=== PATIENT | female | born 1990 | race Caucasian/White ===

== ENCOUNTER 2023-07-12 21:22 | Emergency (ER) | payer MEDICAID, SELFPAY ==
[2023-07-12 21:30] VITALS: BP 120/80; PULSE 70; RESP 16; TEMP 36.6; O2SAT 100; BMI 28.3
--- NOTE | 2023-07-12 21:33 | ED.LOWEXIN ---
HPI - Extremity Injury (Lower) General Time Seen by Provider: 21:37 Date Seen: 07/12/23 Chief Complaint: Extremity Pain/Injury, Lower Stated Complaint: left foot big toe injury Time Seen by Provider: 07/12/23 21:31 Source: patient and RN notes reviewed Mode of arrival: ambulatory Limitations: no limitations History of Present Illness HPI Narrative: 33-year-old female with left great toe injury tonight. She was folding a blanket and tripped on it, feels like she hyperextended her left great toe and has had pain since then. denies any other injuries. Related Data Home Medications Medication Instructions Recorded Confirmed bupropion HCl 150 mg tablet,12 hr 150 mg PO BID 01/24/23 01/24/23 sustained-release citalopram 10 mg tablet 40 mg PO DAILY 01/24/23 01/24/23 hydroxychloroquine 200 mg tablet 200 mg PO BID 01/24/23 01/24/23 Allergies Allergy/AdvReac Type Severity Reaction Status Date / Time No Known Drug Allergies Allergy Verified 01/24/23 16:46 [facility] Medical History (Updated 07/12/23 @ 22:19 by Carlos Sr MD) Left shoulder pain ?M25.512 - Pain in left shoulder (ICD-10) Surgical History (Updated 07/12/23 @ 21:52 by Guanakito Patrick RN) No significant past surgical history Social History Smoking Status: Never smoker Second hand tobacco smoke exposure: No How often do you have a drink containing alcohol: never How often do you have six or more drinks on one occasion: Never AUDIT-C Alcohol total score: 0 Non-prescribed substance use: denies use Exam Narrative: Exam Narrative: General: well nourished , NAD Head: Atraumatic and normocephalic ENT: External ears and external nose are normal Eyes: Conjunctiva clear, pupils are equal reactive, external ocular motions are intact Neck: Full spontaneous range of motion of the neck Lungs: No respiratory distress Musculoskeletal: Tenderness at the base of the distal phalanx of the left great toe with mild erythema in this area. Decreased motion with flexion extension which patient says is usual for her Neurologic: No gross focal neurologic deficits Skin: No rashes Psych: Mood and affect are appropriate Const: Vital Signs, click to edit/add: Vital Signs - 24 hr 07/12/23 21:30 Temperature 97.9 F Pulse Rate [Pulse Oximeter] 70 Respiratory Rate 16 [facility] 120[facility]80 Pulse Oximetry 100 Oxygen Delivery Me thod Room Air Course Course ED Course: patient seen examined, prior records reviewed. patient with history of rheumatoid arthritis and hallux rigidus presents with left great toe pain. Decreased motion at baseline. No swelling but marked tenderness on the dorsum of the toe. X-rays ordered. Patient has history of rheumatoid arthritis, does smoke cigarettes. Reevaluation(s) Time of Reevaluation #1: 22:17 Reevaluation #1: X-ray independently interpreted by me negative for acute fracture or dislocation. patient is stable for discharge Vital Signs Vital signs: Initial Vital Signs Temperature 97.9 F 07/12/23 21:30 Temperature Source Temporal Artery Scan 07/12/23 21:30 Pulse Rate 70 07/12/23 21:30 Pulse Rhythm Regular 07/12/23 21:30 Respiratory Rate 16 07/12/23 21:30 Blood Pressure 120/80 07/12/23 21:30 Blood Pressure Mean 93 07/12/23 21:30 Blood Pressure Position Sitting 07/12/23 21:30 Pulse Oximetry 100 07/12/23 21:30 Oxygen Delivery Method Room Air 07/12/23 21:30 Vital Signs Temperature 97.9 F 07/12/23 21:30 Pulse Rate 70 07/12/23 21:30 Respiratory Rate 16 07/12/23 21:30 Blood Pressure 120/80 07/12/23 21:30 Pulse Oximetry 100 07/12/23 21:30 Oxygen Delivery Method Room Air 07/12/23 21:30 Temperature 97.9 F 07/12/23 21:30 Pulse Rate 70 07/12/23 21:30 Respiratory Rate 16 07/12/23 21:30 Blood Pressure 120/80 07/12/23 21:30 Pulse Oximetry 100 07/12/23 21:30 Oxygen Delivery Method Room Air 07/12/23 21:30 Discharge Plan Discharge Clinical Impression: Strain of great toe of left foot Patient Disposition: Home, Self-Care Condition: Stable Instructions: Musculoskeletal Pain (ED) Activity Level: Weight Bearing as Tolerated Discharge Diet: Regular Prescriptions: No Action bupropion HCl 150 mg tablet sustained-release 12 hr 150 mg PO BID citalopram 10 mg tablet 40 mg PO DAILY hydroxychloroquine 200 mg tablet 200 mg PO BID Follow Up/Referrals: Provider,Not a Local [Primary Care Provider] - Stand Alone Forms: [employer] Secure Info Instructions
--- NOTE | 2023-07-12 21:40 | CRLHL7_ITS ---
For Patients: As a result of the Cures Act, medical imaging exams and procedure reports are released immediately into your electronic medical record. You may view this report before your referring provider. If you have questions, please contact your health care provider. INDICATION: Injury. TECHNIQUE: Left great toe 3 views. Permanently recorded images are archived. COMPARISON: None. FINDINGS: No acute fracture or aggressive osseous lesion. Alignment is normal. The joint spaces are preserved. The soft tissues are unremarkable. IMPRESSION: No evidence of an acute bony abnormality. Dictated by Ed Aragon MD @ 07/12/2023 11:03:26 PM (Electronically Signed)
[2023-07-12 22:23] VITALS: BP 118/82; PULSE 68; RESP 16; TEMP 36.8; O2SAT 100
== END 2023-07-12 22:24 | disposition home or self-care (01) ==
PROVIDERS: Emergency Provider Family Medicine
DX: S96.912A Strain of unspecified muscle and tendon at ankle and foot level, left foot, initial encounter (principal); W18.49XA Other slipping, tripping and stumbling without falling, initial encounter
CPT/HCPCS: 73660; 99283

== ENCOUNTER 2023-10-30 08:43 | Outpatient (CLI) | payer MEDICAID, SELFPAY ==
--- OUTSIDE RECORDS SUMMARY | 2023-10-30 08:45 | XMS_ITS | Data Portability ---
Author Name Unknown Address [address] [place] [address] Phone [phone] Organization [place] - [facility], [employer] Address [address] [place] [address] Assessment Encounter Date Assessment Date Assessment LastModified by Organization Details LastModified Time 05/22/2022 05/22/2022 Patient presents for post-op follow up of: right bunion sx 7 weeks. [email or web address] Not available 05/22/2022 16:04:51 04/04/2023 04/04/2023 We discussed xra y finding with the patient. Patient will monitor for increased pain, swelling, redness or crepitus at the surgical sites. We discussed surgical procedure with local anesthesia and see radiographically what is limiting the motion on her 1st MPJ. We will get an inhouse second opinion LENORE with Dr. Steiner regarding the surgical option. Advised her to bring her orthotics on the next visit to make modifications into it and see if it changes her symptoms. Not available 04/04/2023 10:45:29 04/05/2023 04/05/2023 Discussed with delicia lowe patient her diagnosis as detailed down below. I informed her that at this time she has 3 possible options moving forward. First would be to attempt orthotic modifications to see if there is any symptom reduction. I informed her that I do not think that this would be of realistic clinical benefit, however this could be attempted if she would like to avoid invasive procedures. Option 2 would be to pursue a local injection in the office followed by manual manipulation of the 1st MPJ to assess if any scar tissue could be broken up. Option 3 would be to open her incision under LMAC anesthesia and to release any scar tissue adhesions to increase ROM. The patient was informed that I do not think that bone work would need to be performed secondary to the rectus alignment of the residual foot and it would be to free any adhesions that may have developed. I will discuss this with her primary surgeon and he will contact her with further options. [email or web address] Not available 04/05/2023 13:31:28 04/11/2023 04/11/2023 We discussed the risks possible complications and postoperative course for upcoming surgery today. Patient is here for review of surgical consent and discussion of this. We discussed the above and answered questions. Patient has had increasing pain and difficulty with shoes and ambulation due to the problem. Will follow for outpt. surgery. We spent 30 minutes of consultation time today discussing treatment with the patient. [email or web address] Not available 04/11/2023 10:17:44 04/16/2023 04/16/2023 Pt. tolerated anesthesia and surgery well. Follow up after 1 week. Not available 04/16/2023 19:07:20 04/23/2023 04/23/2023 Discussed postop findings with the patient. Reviewed x-ray results with the patient. Patient was educated on proper incision care, showering/bathing, exercises , icing and activity level. Patient will keep the dressing on/clean/dry. We will refer her to physical therapist for evaluation and treatment to loosen up her scar tissue and facilitate motion on the area. Advised the patient to increase activity level swelling permitting. Patient will rtc in 1 wk for suture removal or sooner if problems. Not available 04/23/2023 15:05:26 05/02/2023 05/02/2023 Discussed findin gs with the patient. Patient was educated on proper incision care, showering/bathing, exercises and icing. Sutures were removed today. Incisions are healing well. She will be starting her physical therapy. with increasing aggressiveness in ROM in dorsiflexion and plantarflexion. Instructed the patient of safe transition from surgical shoe to soft soled shoe gear as tolerated. Patient will rtc in 2-3 wks for surgery check or sooner if any problems arise. Not available 05/02/2023 16:18:35 05/21/2023 05/21/2023 Patient was educated on advancing proper activity level. She has been doing physical therapy 2x a week. Patient will monitor for increased pain, swelling, redness or crepitus at the surgical sites. Follow in office for surgery check in 2-3 weeks. PRN is any pain or problems arise. Not available 05/21/2023 15:04:09 07/02/2023 07/02/2023 Patient was educated on advancing proper activity level. Patient will monitor for increased pain, swelling, redness or crepitus at the surgical sites. We discussed to her about Subiomed. Follow in office for surgery check in 1 year. Off note: we will bring the other first ray cut out size 10 and extra depth shoes 10 1/2 mens or 12 womens to use for trial in a few days. The patient can pick it up on and drop it off or . We will let her wear it in a week and see how it affects the symptoms. Not available 07/09/2023 02:52:58 07/04/2023 07/04/2023 We dispensed tri al ped pillows size 11, trial mens shoes size 10, and trial subiomed size 10 with a first ray cut out. She is to try these and get back to us in 1 week and see if these decreases her symptoms. Not available 07/09/2023 14:15:30 10/08/2023 10/08/2023 I did discussed findings with the patient as detailed down below. We discussed putting a graphite plate underneath the liner of the shoe to make it more stable. We also discussed scanning her for new orthotics. The patient will call for orthotic coverage and we proceed with scanning if eligible. Not available 10/08/2023 17:07:32 Plan of Treatment Reminders Order Date Submit Date Provider Last Modified By Organization Details Last Modified Time Details Appointments None record ed. Lab None record ed. Referral None record ed. Procedures None record ed. Surgeries None record ed. Imaging XR, foot, 3 or more view 023 07/02/20 [facility], [address] [place] [address] [address] , [place], [address], 3 23:21:09 XR, foot, 3 or more view 023 05/21/20 23 [facility], [address] [place] [address], [place], [address], 3 16:42:35 XR, foot, 3 or more view 023 04/23/20 23 [facility], [address] [place] [address], [place], [address], 3 09:34:11 XR, foot, 3 or more view 023 04/04/20 23 [facility], [address] [place] [address] [place], [address], 3 09:44:29 Medication Orders None record ed. Patient TargetsNo targets recorded. Patient InstructionsNo instructions recorded. Reason for Referral None Reported. Results Created Date Observation Date Name Description Value Unit Range Abnormal Flag LastModifiedBy Organization Detail LastModifiedTime 04/04/20 23 XR, foot, 3 or more view No observ ation record ed. [email or web address] [place] [facility] [address] [place] [address] [place], [phone], 04/04/2023 10:45:14 04/23/20 23 XR, foot, 3 or more view No observ ation record ed. [email or web address] [place] [facility] [address] [place] [address], [place], [address], 04/23/2023 15:06:11 05/21/20 23 XR, foot, 3 or more view No observ ation record ed. [email or web address] [place] [address] [place] [address] [place], [address], 05/22/2023 04:11:54 07/02/20 23 XR, foot, 3 or more view No observ ation record ed. [email or web address] [place] [facility] [address] [place] [address], [place], [address], 07/02/2023 14:43:08 Result Notes None recorded. Problems Name Status Onset Date Resolution Date Notes Provider Name and Address Organization Details Recorded Time Acquired hallux rigidus Active 06/21/20 16 Acquired hallux rigidus; Original Code: 68624505 Or iginal Codesystem: SNOMED CT Classifi cation: Medical Con firmation Status: Confirmed Not Available [facility] 09/18/[facility] 09:10:51 Problem Notes None recorded. Procedures Surgical History Date Name Laterality Status Provider Name and Address Organization Details Recorded Time 04/04/20 23 CallusDEBRIDEMENT completed RUEL Carrasco - [facility] 04/04/2023 10:45:58 Imaging Results Imaging Date Name Status LastModified by [email or web address] Details LastModified Time 04/04/2023 XR, foot, 3 or more view active [place] [facility] [address] [place] [address] , [place], [address], 04/04/2023 10:45:14 04/23/2023 XR, foot, 3 or more view active [place] [facility] [address] [place] [address] 60 [place], [address], 04/23/2023 15:06:11 05/21/2023 XR, foot, 3 or more view active [place] [facility] [address] [place] [address] 60 [place], [address], 05/22/2023 04:11:54 07/02/2023 XR, foot, 3 or more view active [place] [facility] [address] [place] [address] 60 [place], [address], 07/02/2023 14:43:08 Procedure Notes None recorded. Medical Equipment None Reported. Allergies No known drug allergies Medications Name Sig Start Date Stop Date Status Note LastModified by Organization Details LastModified Time bupropion HCl SR 150 mg tablet,12 hr sustained-re lease TAKE 1 TABLET BY MOUTH TWICE DAILY . APPOINTMENT REQUIRED FOR FUTURE REFILLS active Not Available Not Available No t Available oxybutynin chloride ER 10 mg tablet,exten ded release 24 hr active Not Available Not Available Not Available Retin-A 0.025 % topical cream APPLY TOPICALLY TO FACE EVERY NIGHT AT BEDTIME active Not Available Not Available N ot Available ibuprofen 800 mg tablet active Not Available Not Available Not Available fluconazole 150 mg tablet active Not Available Not Available Not Available citalopram 10 mg tablet TAKE 1 TABLET BY MOUTH EVERY DAY active Not Available Not Available No t Available hydrocodone 5 mg-acetamino phen 325 mg tablet active Not Available Not Available Not Available hydroquinone 4 % topical cream APPLY 1 APPLICATION TOPICALLY TWICE A DAY; APPLY TO FACE FOR 2 MONTHS active Not Available Not Available No t Available prednisone 20 mg tablet TAKE 2 TABLETS BY MOUTH DAILY FOR 5 DAYS active Not Available Not Available N ot Available clindamycin HCl 150 mg capsule TAKE 3 CAPSULES BY MOUTH 3 TIMES DAILY FOR 10 DAYS active Not Available Not Available Not Available oxycodone 5 mg/5 mL oral solution TAKE 5ML BY MOUTH EVERY 6 HOURS NEEDED FOR PAIN active Not Available Not Available No t Available tramadol 50 mg tablet TAKE 1 TABLET BY MOUTH EVERY 4-6 HOURS NEEDED FOR PAIN active Not Available Not Available No t Available citalopram 20 mg tablet TAKE 1 TABLET BY MOUTH DAILY ALONG WITH A 10 MG TABLET FOR A TOTAL DOSE OF 30 MG. active Not Available Not Available No t Available benzonatate 100 mg capsule active Not Available Not Available Not Available promethazine 25 mg tablet TAKE ONE TABLET EVERY 6 HOURS NEEDED FOR NAUSA active Not Available Not Available No t Available metronidazol e 0.75 % topical cream APPLY 1 APPLICATION TOPICALLY 2 TIMES DAILY NEEDED active Not Available Not Available No t Available hydroxychlor oquine 200 mg tablet TAKE 1 TABLET BY MOUTH TWICE DAILY active Not Available Not Available No t Available ondansetron 4 mg disintegrati ng tablet TAKE DISSOLVE ONE TABLET ON TONGUE EVERY 4 HOURS NEEDED FOR NAUSEA active Not Available Not Available No t Available cefdinir 300 mg capsule active Not Available Not Available N ot Available fluticasone propionate 50 mcg/actuatio n nasal spray,suspen sonal SHAKE LIQUID AND USE 2 SPRAYS IN EACH NOSTRIL DAILY active Not Available Not Available No t Available amoxicillin 875 mg-potassium clavulanate 125 mg tablet active Not Available Not Available Not Available oxycodone 5 mg tablet TAKE 1 TABLET BY MOUTH EVERY 4 HOURS NEEDED active Not Available Not Available No t Available Tri-Ina 0.01 %-4 %-0.05 % topical cream APPLY TOPICALLY TO THE AFFECTED AREA OF FACE AT BEDTIME active Not Available Not Available No t Available cyclobenzapr ine 5 mg tablet TAKE 1 TABLET BY MOUTH THREE TIMES DAILY active Not Available Not Available Not Available Flovent HFA 110 mcg/actuatio n aerosol inhaler INHALE 2 PUFFS BY MOUTH DAILY NEEDED FOR ASTHMA. RINSE MOUTH WITH WATER AFTER USE FOR AFTERTASTE AND INCIDENCE OF CANDIDIASIS . DO NOT SWALLOW active Not Available Not Available No t Available ProAir HFA 90 mcg/actuatio n aerosol inhaler INHALE 1 TO 2 PUFFS NEEDED FOR WHEEZING OR SHORTNESS OF BREATH active Not Available Not Available No t Available QuickVue At-Home COVID-19 Test kit TEST DIRECTED TODAY active Not Available Not Available No t Available Vitals Date Recorded Body mass index (BMI) Body weight Body height Provider Name and Address Organization Details Last Updated DateTime 05/22/2022 29 kg/m2 97314.07 g 165.1 cm RUEL Lee - [facility] 05/22/2022 14:16:38 Social History None recorded. Functional Status None recorded. Mental Status None recorded. Family History Nothing Reported. Medical History No medical history recorded. Gynecological HistoryNo gynecological history recorded. Obstetrics History GPAL:G 0 P 0 0 0 0 Past Encounters Encounter ID Performer Location Encounter Start Date Encounter Closed Date Diagnosis/Indication Diagnosis SNOMED-CT Code [id number] Fabien Vann [facility] [employer] Office [address] [place] [phone] 05/22/2022 15:11:57 05/22/2022 16:10:42 Postoperative visit [id number] Hallux josey anuel AND bunion [id number] Shreyas Magana [place] [facility] [address] [place] [address] 04/04/2023 10:01:39 04/08/2023 09:51:08 Postoperative care [id number] Low back pain 801939406 Foot callus [id number] Charles Price [facility] [employer] Office [address] [place] [phone] 04/05/2023 12:00:25 04/08/2023 09:52:29 Acquired hallux limitus of left great toe [id number] 09 Acquired h allux limitus of right great toe [id number] [facility] Office [address] [place] [phone] 04/11/2023 10:05:32 04/15/2023 09:22:53 Acquired hallux limitus of right great toe 76146963463930 00 Acquired h allux limitus of left great toe 98490655457781 09 [id number] [facility] [address] [place] [address] 04/16/2023 09:22:47 04/17/2023 11:10:05 Acquired hallux limitus of right great toe 77419990483871 00 Acquired h allux limitus of left great toe 60513579242324 09 [id number] [address] [facility] Office [address] [place] [id number] 04/23/2023 14:43:01 04/25/2023 10:08:48 Postoperative care [id number] Fabien Vann [facility] Office [address] [place] [id number] 05/02/2023 12:30:21 05/06/2023 13:18:36 Postoperative care [id number] [facility] Office [address] [place] [id number] 05/21/2023 14:49:22 05/22/2023 09:49:30 Postoperative care [id number] [facility] Office [address] [place] [id number] 07/02/2023 14:16:03 07/10/2023 23:21:09 Postoperative care [id number] Shreyas Magana [place] [facility] [address] [place] [phone] 07/04/2023 11:49:12 07/09/2023 13:21:56 Acquired hallux limitus of left great toe [id number] 09 [id number] Shreyas Magana [place] [facility] [address] [facility] [address] [place] [address] 10/08/2023 15:14:14 10/09/2023 12:09:45 Pain in left foot [id number] 7 Pain in right foot 24420 [id number] 7 Postoperative care [id number] Health Concerns Section Related Observation LastModified by Organization Detai ls LastModified Time None Recorded Concern Status LastModified by Organization Details LastModified Time None Recorded Advance Directives Directive None Recorded Payers Encounter Date Sequence Insurance Name Policy Number Policy May Covered Member ID May Member ID Guarantor Name 10/08/2023 1 [employer] - DOS ON OR AFTER 2021 [id number] 1 Keily E Maxa [id number] Keily E Maxa 07/04/2023 1 [employer] - DOS ON OR AFTER 2021 [id number] 1 Keily E Maxa [id number] Keily E Maxa 07/02/2023 1 [employer] - DOS ON OR AFTER 2021 [id number] 1 Keily E Maxa [id number] Keily E Maxa 05/21/2023 1 [employer] - DOS ON OR AFTER 2021 [id number] 1 Keily E Maxa [id number] Keily E Maxa 05/02/2023 1 [employer] - DOS ON OR AFTER 2021 [id number] 1 Keily E Maxa [id number] Keily E Maxa 04/23/2023 1 [employer] - DOS ON OR AFTER 2021 [id number] 1 Keily E Maxa [id number] Keily E Maxa 04/16/2023 1 [employer] - DOS ON OR AFTER 2021 [id number] 1 Keily E Maxa [id number] Keily E Maxa 04/11/2023 1 [employer] - DOS ON OR AFTER 2021 [id number] 1 Keily E Maxa [id number] Keily E Maxa 04/05/2023 1 [employer] - DOS ON OR AFTER 2021 [id number] 1 Keily E Maxa [id number] Keily E Maxa 04/04/2023 1 [employer] - DOS ON OR AFTER 2021 [id number] 1 Keily E Maxa [id number] Keily E Maxa 05/22/2022 1 [employer] - INDIVIDUAL AND FAMILY (HMO) [id number] 1 Keily E Maxa [id number] Keily E Maxa Notes Date Note Type Note Provider Name and Address Organization Details Recorded Time 05/22/2022 text/html HPI Notes: hallu x limitus right Fabien Vann DPM [address] [place], [address], [facility] - [facility] 05/22/2022 16:07:40 04/04/2023 text/html HPI Notes: Chris garay 1 year postop doing well. They are doing daily exercises, elevation and icing. Patient denies n/v/f/c/calf pain or SOB. She was experiencing shooting pain and jamming of the 1st MPJ that is happening randomly. She feel it when getting up with or without shoes. She was also having hip and low back pain. Shreyas ashford [place] - [facility] 04/29/2023 10:35:27 04/05/2023 text/html HPI Notes: Chris garay is a 33 year old female established patient who presents to clinic today for a 2nd opinion of right sided foot pain. The patient previously underwent a modified Isaac bunionectomy about 1 year ago to address her Hallux limitus and she mentions that she has noticed that her right foot has since locked up. The patient endorses that she has increasing symptoms that are consistent with what she was experiencing prior to the surgery. Charles Price DPM [address] [place], [address], [facility] - [facility] 04/05/2023 13:31:32 04/11/2023 text/html HPI Notes: Pt. i s scheduled for upcoming outpatient surgery on 04/16/2023: 1. Right - 1st MPJ manipulation with possible arthroplasty. Fabien Vann DPM [address] [place] [address], [phone], [facility] 04/12/2023 10:06:50 04/23/2023 text/html HPI Notes: Patie nt 1 wk postop and is doing well. Patient denies significant pain. Pain is controlled with PO meds. Patient has been resting, elevating and icing. Patient has ambulated minimally in the surgical shoe/ weight on heel. Patient denies n/v/f/c/calf pain or SOB. The procedure was done last 04/16/2023: 1. Right - 1st MPJ manipulation with arthroplasty 2. Right - cheilectomy on the 1st metatarsal Fabien Zuniga CARLOS Vann [address] [place] [address], [phone], [facility] 04/25/2023 09:33:42 05/02/2023 text/html HPI Notes: Patie nt 2 wk postop and is doing well. Patient denies significant pain. Pain is controlled with PO meds. Patient has been resting, elevating and icing. Patient has ambulated minimally in the surgical shoe/ weight on heel. Patient denies n/v/f/c/calf pain or SOB. The procedure was done last 04/16/2023: 1. Right - 1st MPJ manipulation with arthroplasty 2. Right - cheilectomy on the 1st metatarsal Fabien Zuniga CARLOS Vann [address] [place] [address], [phone], [facility] 05/03/2023 13:56:50 05/21/2023 text/html HPI Notes: Patie nt 5 wk postop and is doing well. Patient denies significant pain. Pain is controlled with PO meds. Patient has been resting, elevating and icing. Patient has ambulated minimally in the surgical shoe/ weight on heel. Patient denies n/v/f/c/calf pain or SOB. She is having pain on the lateral side of the left foot. The procedure was done last 04/16/2023: 1. Right - 1st MPJ manipulation with arthroplasty 2. Right - cheilectomy on the 1st metatarsal Fabien A. CARLOS Vann [address] [place], [address], [facility] 05/22/2023 09:27:40 07/02/2023 text/html HPI Notes: Patie nt 11 wks postop and is doing well. Patient denies significant pain. Pain is controlled with PO meds. Patient has been resting, elevating and icing. Patient has ambulated minimally in the surgical shoe/ weight on heel. Patient denies n/v/f/c/calf pain or SOB. She is having pain on the lateral side of the left foot. The procedure was done last 04/16/2023: 1. Right - 1st MPJ manipulation with arthroplasty 2. Right - cheilectomy on the 1st metatarsal The patient concerns of left foot with developing hallux limitus. Increasing sx in left foot right foot doing well. 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 RUEL Carrasco - [facility] 07/10/2023 09:08:44 10/08/2023 text/html HPI Notes: The patient is here for a follow up. The patient has mentioned that she was having pain on post-op area. She mentioned sitting on her foot and flipping her foot backwards which may have elicited the pain on her foot. She was previously dispensed with trial [employer] devices with a first ray cut out and she did felt like it was helping her upstream symptoms. She was also doing good with physical therapy resulting in ore loose scar tissue and good range of motion. RUEL Carrasco [facility] 10/08/2023 17:08:46 OBGyn Episode No OBEpisode recorded.
--- OUTSIDE RECORDS SUMMARY | 2023-10-30 08:46 | XMS_ITS | Encounter Summary ---
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 P [facility] Care Provider Reason for Referral * MRI/CAT/PET Scan (Routine) - Authorized Specialty Diagnoses / Procedures Referred By Contac t Referred To Contact Radiology Diagnoses Tonsillitis Recurrent Abscess Peritonsillar Procedures CT Neck Soft Tissue with IV Contrast Leena Cool P.A.-[facility] [address] [place] [address] [facility] Referral ID Status Reason Start Date Expiration Date V isits Requested Visits Authorized [id number] Authorized 10/21/2023 10/20/2024 1 1 Reason for Visit * Reason Comments Follow-up * Appointment Request (Routine) - Closed Specialty Diagnoses / Procedures Referred By Contac t Referred To Contact Otorhinolaryngology Referral ID Status Reason Start Date Expiration Date Visits Re quested Visits Authorized [id number] Closed 10/21/2023 10/20/2024 1 1 Encounter Details Date Type Department Care Team (Latest Contact Info) Description 10/21/2023 3:30 PM CDT Office Visit Department of Otorhinolaryngology in [place] [address] [place] [phone] Leena Cool P.A.-[facility] [address] [place] [phone] Tonsillitis Recurrent (Primary Dx); Abscess Peritonsillar Social History Tobacco Use Types Packs/Day Years Used Date Smoking Tobacco: Light Smoker Cigarettes 0.5 6 Smokeless Tobacco: Never Alcohol Use Standard Drinks/Week Comments No 0 (1 standard drink = 0.6 oz pur e alcohol) [facility] Utilities Answer Date Recorded In the past 12 months has e [email or web address], gas, oil, or water ftopia threatened to shut off services in your home? No 08/22/2023 Humiliation, Afraid, Rape, and Kick questionnair e Answer Date Recorded Within the last year, have y ou been afraid of your partner or ex-partner? No 11/06/2021 Within the last year, have y ou been humiliated or emotionally abused in other ways by your partner or ex-partner? No Within the last year, have y ou been kicked, hit, slapped, or otherwise physically hurt by your partner or ex-partner? No 11/06/2021 Within the last year, have y ou been raped or forced to have any kind of sexual activity by your partner or ex-partner? No 11/06/2021 Social Connection and Isolat ion Panel [NHANES] Answer Date Recorded In a typical week, how many times do you talk on the phone with family, friends, or neighbors? More than three times a week 11/06/2021 How often do you get togethe r with friends or relatives? Twice a week 11/06/2021 How often do you attend [facility] or mandaen services? Patient declined 11/06/2021 Do you belong to any clubs o r organizations such as shinto groups, unions, fraternal or athletic groups, or school groups? No 11/06/2021 How often do you attend meet ings of the clubs or organizations you belong to? 1 to 4 times per year 11/06/2021 Are you , , di vorced, , never , or living with a partner? Never 11/06/2021 AUDIT-C Answer Date Recorded Q1: How often do you have a drink containing alc ohol? Patient declined 11/06/2021 Average Number of Drinks Not on file 022 Frequency of Binge Drinking Not on file 10/14 Overall Financial Resource Strain (CARDIA) Answe r Date Recorded How hard is it for you to pa y for the very basics like food, housing, medical care, and heating? Somewhat hard 11/06/2021 PHQ-2 Answer Date Recorded PHQ-2 Score 1 08/14/2023 [facility] - Occupational Stress Questionnaire Answer Date Recorded Do you feel stress - tense, restless, nervous, or anxious, or unable to sleep at night because your mind is troubled all the time - these days? Only a little 11/06/2021 Exercise Vital Sign Answer Date Recorde d On average, how many days pe r week do you engage in moderate to strenuous exercise (like a brisk walk)? Patient declined On average, how many minutes do you engage in exercise at this level? 60 min 08/22/2023 Hunger Vital Sign Answer Date Recorded Within the past 12 months, y ou worried that your food would run out before you got the money to buy more. Patient declined Within the past 12 months, t he food you bought just didn't last and you didn't have money to get more. Sometimes true 02/2024 PRAPARE - Transportation Answer Date Re corded In the past 12 months, has l ack of transportation kept you from medical appointments or from getting medications? No 02/2024 In the past 12 months, has l ack of transportation kept you from meetings, work, or from getting things needed for daily living? No 08/22/2023 Depression Answer Date Recor ded PHQ-9 Total Score (max 27) 3 08/14 Nutrition Answer Date Recorded Nutrition: EVOO Fat Source No 08/22 On average, how many serving s of fruits and vegetables do you eat per day (serving size is equal to 1 cup or approximately the size of a tennis ball)? 3-5 08/22/2023 Dental Answer Date Recorded Dental: Regular Dentist Yes 11/07/19 Employment Answer Date Recorded Employment status Employed and actively working without restrictions 08/22/2023 Housing Stability Answer Date Recorded What is your living situation today? I have a [facility] [address] to live 08/22/2023 Education Answer Date Recorded What is the highest level of school you have completed or the highest degree you have received? Bachelor's degree (e.g., BA, AB, BS) 12/24/2018 Sex and Gender Information Value Date Recorded Sex Assigned at Female 02/12/2020 1:12 PM CDT Gender Identity Female 02/12/2020 1:12 PM CDT Sexual Orientation Straight 02/12/2020 1: 12 PM CDT documented as of this encounter Progress Notes * Leena Cool P.A.-C. - 10/21/2023 3:30 PM CDT SUBJECTIVE CHIEF COMPLAINT/REASON FOR VISIT Recurrent acute tonsillitis HISTORY OF PRESENT ILLNESS Keily Trivedi presents to the clinic today to have her tonsils evaluated. Past medical history significant for generalized anxiety disorder, rheumatoid arthritis, asthma, depression, cigarette use currently smoking a half pack a day, and peritonsillar abscess. I saw patient 01/08/2022 after she was diagnosed with a 9 x 6 x 10 mm left peritonsillar abscess along with bilateral tonsillitis. Attempt at drainage of this was unsuccessful and she was treated in hospital with IV antibiotics, fluids, steroids, and pain medications. Due to some persisting symptoms a repeat CT was obtained which showed multiple small abscesses and she was once again admitted. Symptoms significantly improved with the steroids and antibiotics, but since then she has had continued recurrence of bilateral sore throat left greater than right. Approximately 1 day a week her throatwill bother her, this is sometimes bilateral and sometimes just on the left. She also notices at least 5 to 6 times a year she will have exacerbation of sore throat, again left greater than right, this will take a couple weeks to completely resolve. This is sometimes on its own but sometimes associated with malaise, cough, congestion, or upper respiratory symptoms. Whenever she does get acutely ill she feels like it always subtle them with the throat and results in the throat pain. She never had this problem prior to November of 2021. She does currently have productive cough for 3 weeks, mild nasal congestion and left greater than right sore throat. The following portions of the patient's history were reviewed: allergies, current medications, problem list, family history, medical history, social history and surgical history OBJECTIVE PHYSICAL EXAMINATION Patient is alert, pleasant, in no acute distress. External nasal exam normal. Oral cavity without lesions. Tonsils are 2+, exophytic, no erythema or exudate. I do not appreciate any asymmetry of the soft palate or peritonsillar areas. Base of tongue normal. Nasopharynx is clear. Indirect laryngoscopy reveals no abnormalities. Neck is without adenopathy or asymmetry. ASSESSMENT / PLAN 1. Recurrent acute tonsillitis 2. Possible chronic left tonsillitis 3. Cough and sore throat x3 weeks We discussed involved anatomy and findings. Reviewed different treatment options. She is amenable to getting an updated neck CT to see if there is chronic low-grade abscesses that may be waxing and waning in the left versus just the recurrent tonsillitis. I have ordered this first available and will call her with these results. She is slightly hesitant to proceed with tonsillectomy but yet is definitely interested in doing so in order to stop her frequent sore throats. We discussed this procedure in detail, including goals, risks, and potential complications. She is given written information on tonsillectomy. She is aware that this is a low risk procedure, done under general anesthesia, andthat this will require a preoperative consultation with primary care provider to assess anesthetic and surgical risk. We discussed the possibility of persisting symptoms. We discussed the potential for significant postoperative pain, morbidity, bleeding, nausea, dehydration, and rehospitalization. 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 I would like to obtain the CT prior to surgery to see if there are any underlying abscesses, and patient is aware of this. Orders are filled out accordingly. Leena Cool P.A.-C. documented in this encounter Miscellaneous Notes * Addendum Note - Leena Cool P.A.-C. - 10/21/2023 3:30 PM CDTAddended by: LEENA COOL on: 10/22/2023 12:56 PM Modules accepted: Orders documented in this encounter Plan of Treatment Upcoming Encounters Date Type Department Care Team (Late st Contact Info) Description 10/30/2023 3:30 PM CDT Appointment Department of Radiology in [place], [place] [address] [place] [phone] Leena Cool P.A.-C. [address] [place] [phone] 10/31/2023 4:00 PM CDT Office Visit Department of Family Medicine, [facility], in [place] [address] [place] [address] Rose Mary Perkins APRN, C.N.P., D.N.P. 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 [address] [phone] PCP - General 01/07/23 documented as of this encounter
--- OUTSIDE RECORDS SUMMARY | 2023-10-30 08:46 | XMS_ITS | Clinical Summary ---
Author Name Unknown Organization [facility] Address [address] [place] [address] Care Team Providers Care Last Repairer Name Role Phone Rose Mary Perkins APRN, C.N.P., D.N.P. P [facility] Care Provider Source Comments Patient records contain information from all sites at [facility]. For routine questions regarding patient records, call [phone] during business hours, M-F 8:00 AM - 5:00 PM Central Time. Record requests for emergency care only can be directed to [phone] at any time.[facility] Allergies Active Allergy Reactions Criticality Noted Date Comments Chlorhexidine Rash 02/12/2020 Medications Medication Sig Dispensed Refills Start Date End Date Status hydroxychloroquin e (PLAQUENIL) 200 mg tablet Take 200 mg by mouth 2 (two) times a day. 05/24/2018 Active multivitamin capsule Take 1 capsule by mouth daily. Active ibuprofen (ADVIL,MOTRIN) 600 mg tablet Take 1 tablet by mouth every 6 (six) hours. 02/01/2020 Active albuterol 90 mcg/actuation inhalerIndication s:Asthma Mild Intermittent (HCC) Inhale 1-2 puffs as needed for wheezing or shortness of breath. 18 g 11 11/06/2021 Active fluocinolone-hydr oquinone-tretinoi n (TRI-DEANNA) 0.01-4-0.05 % cream Apply 1 Application topically at bedtime. Apply to affected areas on face. 30 g 1 01/07/2023 Active citalopram (CeleXA) 20 mg tabletIndications :Depression Major Recurrent (HCC) TAKE 1 TABLET BY MOUTH DAILY ALONG WITH A 10MG FOR A TOTAL DOSE OF 30MG 90 tablet 3 08/14/2023 Active tretinoin (RETIN-A) 0.025 % creamIndications: Sun Damaged Skin Apply 1 Application topically at bedtime. Apply to face nightly. 45 g 2 08/15/2023 Active hydroquinone 4 % cream Apply 1 Application topically 2 (two) times a day. Apply to face for 2 months. 28.35 g 1 08/15/2023 Active metroNIDAZOLE (METROCREAM) 0.75 % cream Apply 1 Application topically 2 (two) times a day as needed (rash face). 45 g 3 08/14/2023 Active buPROPion (WELLBUTRIN SR) 150 mg 12 hr tabletIndications :Anxiety Generalized Disorder,Depresse d Libido TAKE 1 TABLET(150 MG) BY MOUTH TWICE DAILY 180 tablet 3 08/14/2023 Active L.acidoph-L.radhag- B.bif-S.therm (BACID) 1 billion cell- 250 mg per tablet Take 1 tablet by mouth 2 (two) times a day with meals. 180 tablet 3 08/28/2023 Active oxyBUTYnin (DITROPAN-XL) 10 mg 24 hr tablet Take 1 tablet (10 mg total) by mouth daily. 30 tablet 3 10/04/2023 Active citalopram (CeleXA) 10 mg tablet take 1 tablet by mouth every day 90 tablet 3 10/22/2023 Active amoxicillin (AMOXIL) 500 mg capsule Take 2 capsules (1,000 mg total) by mouth every 12 (twelve) hours for 10 days. 40 capsule 10/22/2023 11/01/19 24 Active citalopram (CeleXA) 10 mg tablet take 1 tablet by mouth every day 90 tablet 08/07/2023 10/22/19 24 Discontinued Active Problems Patient Care Coordination No te Formatting of this note migh t be different from the original. OB Problem List 1 Depression/Anxiety - on Celexa 30 mg 2 Rheumatoid Arthritis - takes Plaquenil 3 Overweight BMI 29 4 GBS positive Patient does not want sister in room. Plan is to tell her and family that she can only have 1 person in room (she will pick her mother). Her sister stresses her out. She feels bad and so we are going to help her facilitate this. Having a girl! Caitlyn patient LMP: 03/29/18 TAMIKO by LMP calculator: 01/03/19 - LMP consistent with 7wk [facility] Hospital for Delivery: [facility] 's provider: Jane OB education completed. Pre-reg completed at [facility]. FOB involved- NO- MOM AND SISTER FOR LABOR SUPPORT [facility] nursing referral faxed on 05/29. OB labs Blood type: O pos 05/20/2018 Antibody screen: Neg 05/20/2018 HBsAg: Neg 05/20/2018 HIV: Neg 05/20/2018 Syphilis: NR 05/20/2018 Rubella: Immune 05/20/2018 Varicella: Immune 05/20/2018 TSH: 2.0 05/20/2018 Hgb: 12.8 05/20/2018, 12.2 10/15/2018 Hct: 39.5 05/20/2018, 36.1 10/15/2018 Platelets: 335 05/20/2018, 243 10/15/2018 Pap smear: 05/2016 NIL Glucose screen: 113 10/15/2018 GBS culture: 12/10/2018 positive Problem Noted Date Diagnosed Date Incontinence Urinary Stress And Urge 10/28/2023 Frequency Urinary 10/28/2023 Nicotine Dependence Cigarettes 01/05/2020 Sleep Disorder 05/13/2019 Anxiety Generalized Disorder 12/02/2018 Arthritis Rheumatoid 05/20/2018 Asthma Mild Intermittent 06/06/2015 Depression Major Recurrent 10/13/2014 Resolved Problems Problem Noted Date Diagnosed Date Resolved Date Positive Group B Streptococcus 12/12/2018 02/24/2019 Affective Seasonal Disorder 11/15/2015 05/13/2019 Overview: Disorder Affective Seasonal Depression Major 10/19/2015 05/13/2019 Asthma NOS 09/15/2012 05/13/2019 Overview: Asthma, Unspecified Encounters Date Type Department Care Team Description 10/22/2023 Clinical Communication Department of Otorhinolaryngology in [place], [place] [address] [place] [address] Jayden Rowell M.D. SURGERY DATE - ENT 10/21/2023 3:30 PM CDT Office Visit Department of Otorhinolaryngology in [place], [place] [address] [place] [address] Leena Cruz P.A.-C. Tonsillitis Recurrent (Primary Dx); Abscess Peritonsillar 10/18/2023 Refill Department of [facility], [facility], in [address] [place] [address] Rose Mary Perkins APRN, C.N.PGenet, D.N.P. Med Refill 10/18/2023 Refill Department of [facility], [facility], in [address] [place] [address] Rose Mary Perkins APRN, C.N.PGenet, D.N.P. Med Refill 10/04/2023 11:30 AM CDT Comprehensive Visit Department of Urology in [place], [place] [address] [place] [phone] Yael Centeno APRN, C.N.P. Incontinence Urinary Stress And Urge (Primary Dx); Frequency Urinary; Dysfunction Pelvic Floor Female 08/22/2023 12:38 PM LINUX PROGRAMMER - 08/22/2023 11:59 PM LINUX PROGRAMMER Hospital Encounter Department of Laboratory Medicine in [address] [phone] Rose Mary Perkins APRN, C.N.P., D.N.P. Frequency Urinary Discharge Disposition: Home or Self Care 08/22/2023 12:37 PM LINUX PROGRAMMER Hospital Encounter Department of Laboratory Medicine in [address] [address] Rose Mary Perkins APRN, C.N.P., D.N.P. Frequency Urinary Discharge Disposition: Home or Self Care 08/22/2023 12:37 PM LINUX PROGRAMMER Hospital Encounter Department of Laboratory Medicine in [address] [address] Rose Mary Perkins APRN, C.N.P., D.N.P. Frequency Urinary Discharge Disposition: Home or Self Care 08/22/2023 12:00 PM LINUX PROGRAMMER Comprehensive Visit Department of Family [facility], [facility], [address] [place] [address] Rose Mary Perkins APRN, C.N.P., D.N.P. Frequency Urinary (Primary Dx); Diarrhea 08/14/2023 Refill Department of [facility], [facility], [address] [address] Edel Grewal M.D. Med Refill 08/14/2023 Refill Department of [facility], [facility], [address] [phone] John Tong M.D. Med Refill 08/14/2023 Refill Department of Family Medicine, [facility], [place], [place] [address], [place] [address] Malou Medeiros APRN, C.N.P. Med Refill 08/14/2023 Refill Department of [facility], [address] [place] [address] Edel Grewal M.D. Med Refill 08/14/2023 Refill Department of [facility], [address] [address] Edel Grewal M.D. Med Refill 08/07/2023 Refill Department of Family [facility], in [place], [place] [address], [place] [address] Edel Grewal M.D. Med Refill from Last 3 Months Immunizations Name Administration Dates Next Due 4vHPV (discontinued) 03/27/2012,06/27/20 11,03/27/2011,2009 9vHPV 03/27/2012,06/27/2011,03/27/2011 DTP 03/09/1998, 3,05/12/1993,1992,1992 HepA Adult 05/30/2016,10/13/2014 HepB (discontinued) adolesce nt/high risk 05/30/2016,11/24/2014,10/25/2014 HepB Adult 05/30/2016,11/24/2014,10/25/2014 HepB Pediatric/Adolescent 07/05/1993,1992, 1992 Hib (HbOC) (discontinued) 07/05/1993,1992, 1992 Influenza (IM) Preservative Free 05/13/2019 Influenza TIV (IM) 03/27/2012,03/27/2011, 010 Influenza, Injectable, Mdck, Preservative Free, Quadrivalent 05/13/2019 Influenza, Injectable, Quadrivalent 06/06/2015 Influenza, Seasonal, Injectable 05/05/20 12,03/27/2012,03/27/2011,2009 Influenza, Unspecified 05/13/2019,2017,07/12/2017,2015,06/06/2015,04/21/2014,04/30/2013,1 ,03/27/2012,03/27/2011 MCV4 (Menactra)(Discontinued) 08/09/2010 MMR 07/10/2005,07/05/1993 MPSV4 08/09/2010 OPV 07/05/1993, 3,1992,1991 PCV20 12/08/2021 SARS-COV-2 (COVID-19) - MODERNA(Discontinued) 08/22/2023(Deferred: Patient decision) Td Preservative Free (TENIVA C, DECAVAC) 07/10/2005 Tdap 10/15/2018,10/13/2014,07/10/2005 influenza vaccine quad (FLUZONE/FLUARIX) (6 months and older)(PF) 04/30/2022,05/20/2021,07/05/2020,2018,04/30/2018,07/12/2017,05/17/2016 Family History Medical History Relation Name Comments ADD Brother Lucius trivedi Asthma Brother Lucius trivedi Learning disorder Brother Lucius trivedi Alcohol abuse Father Maurisio trivedi Anxiety disorder Father Maurisio trivedi Depression Father Maurisio trivedi Skin cancer Grandfather Arthritis Maternal Grandmother Katiana martines Osteoporosis Maternal Grandmother Katiana martines Ovarian cancer Maternal Grandmother Katiana martines 7 0s Asthma Mother Diana trivedi Ovarian cancer Other maternal great aunt 60s Lung cancer Paternal Grandfather Rio ashrobinson Stroke Paternal Grandmother Sheree ashrobinson Relation Name Status Comments Brother Lucius trivedi Father Maurisio trivedi Grandfather Maternal Grandmother Katiana martines Mother Diana trivedi Other maternal great aunt Paternal Grandfather Rio barkley Paternal Grandmother Sheree ashmanueltank Social History Tobacco Use Types Packs/Day Years Used Date Smoking Tobacco: Light Smoker Cigarettes 0.5 6 Smokeless Tobacco: Never Tobacco Cessation:Ready to Q uit: Not Asked; Counseling Given: Not Answered Alcohol Use Standard Drinks/Week Comments No 0 (1 standard drink = 0.6 oz pur e alcohol) [facility] [employer] Answer Date Recorded In the past 12 months has e [employer], gas, oil, or water [employer] threatened to shut off services in your [...] week 11/06/2021 How often do you attend chur ch or taoist services? Patient declined 11/06/2021 Do you belong to any clubs o r organizations such as jainism groups, unions, fraternal or athletic groups, or [...] Answer Date Recorded PHQ-2 Score 1 08/14/2023 [facility] Occupat ional Health - Occupational Stress [...] your living situation today? I have a [facility] place to live 08/22/2023 Education Answer Date Recorded What is the highest level of school you have completed or the highest degree you have received? Bachelor's degree (e.g., BA, AB, BS) 12/24/2018 Sex and Gender Information Value Date Recorded Sex Assigned at Female 02/12/2020 1:12 PM CDT Gender Identity Female 02/12/2020 1:12 PM CDT Sexual Orientation Straight 02/12/2020 1: 12 PM CDT Last Filed Vital Signs Vital Sign Reading Time Taken Comments Blood Pressure 103/67 08/22/2023 12:06 PM LINUX PROGRAMMER Pulse 84 08/22/2023 12:06 PM LINUX PROGRAMMER Temperature 35.7 ??C (96.2 ??F) 08/22/2023 1 2:06 PM LINUX PROGRAMMER Respiratory Rate 24 08/22/2023 12:0 6 PM LINUX PROGRAMMER Oxygen Saturation 98% 04/12/2023 3:45 PM CDT Inhaled Oxygen Concentration - - Weight 82.5 kg (181 lb 14.1 oz) 024 12:06 PM LINUX PROGRAMMER Height 167.5 cm (5' 5.95) 08/22/2023 1 2:06 PM LINUX PROGRAMMER Body Mass Index 29.41 08/22/2023 12:06 PM LINUX PROGRAMMER Plan of Treatment Upcoming Encounters Date Type Department Care Team (Late st Contact Info) Description 10/30/2023 3:30 PM CDT Appointment Department of Radiology in [place], [place] [address] [place] [phone] Leena Cruz P.A.-C. [address] [place] [phone] 10/31/2023 4:00 PM CDT Office Visit Department of Family Medicine, [facility], in [place], [place] [address] [place] [address] Rose Mary Perkins APRN, C.N.P., D.N.PGenet [address] [place] [address] Health Maintenance Due Date Last Done Comments COVID-19 Vaccine (#1) 1997 Zoster Vaccines (1 of 2) 2011 Tobacco Cessation counseling 06/02/2022 06/02/2021 Asthma Action Plan 11/06/2022 11/06/2021, 05/30/2016 Influenza Vaccine (#1) 2023 , 05/20/2021, 07/05/2020, Additional history exists Depression Monitoring (PHQ-9) 12/13/2023 08/14/2023, 10/15/2017 Cervical Cancer Screening 06/02/20242020, 06/02/2021, 02/24/2019, Additional history exists Asthma Control Test Questionnaire 08/22/2024 08/22/2023, 08/22/2023, 05/30/2016 DTaP,Tdap,and Td Vaccines (8 - Td or Tdap) 10/15/2028 10/15/2018, 10/13/2014, 07/10/2005, Additional history exists HPV Vaccines Completed 03/27/2012, 03/15, 06/27/2011, Additional history exists Hepatitis C Screening Completed 11/03/2015 Hepatitis A Vaccines Completed 05/30/2016, 10/14/19 15 Hepatitis B Vaccines Completed 05/30/2016, 05/30/2016, 11/24/2014, Additional history exists HIV Screening Completed 05/20/2018, 11/03/2015 Pneumococcal vaccine (0-64 years) Completed 022 Medical Devices Implanted Type Area Insulation Batting Machine Operator Device Identifier Shelf Expiration Date Model / Serial / Lot Hardware E.G. Pins/Screws/Ro ds Hardware e.g. pins/screws/ rods Right: Foot Procedures Procedure Name Priority Date/Time Associated Diagnosis Comments GIARDIA ANTIGEN, F Routine 08/23/2023 10 :40 AM LINUX PROGRAMMER Frequency Urinary CALPROTECTIN, F Routine 08/23/2023 9:50 AM LINUX PROGRAMMER Frequency Urinary TISSUE TRANSGLUTAMINASE (TTG) AB, IGA, S Routine 08/22/2023 12:52 PM LINUX PROGRAMMER FERRITIN, S Routine 08/22/2023 12:52 PM LINUX PROGRAMMER Frequency Urinary CELIAC DISEASE SEROLOGY CASCADE, S Routine 08/22/2023 12:52 PM LINUX PROGRAMMER Frequency Urinary HEPATIC FUNCTION PANEL, S Routine 08/22/2023 12:52 PM LINUX PROGRAMMER Frequency Urinary URINALYSIS WITH MICROSCOPIC IF INDICATED, U Routine 08/22/2023 12:47 PM LINUX PROGRAMMER Frequency Urinary BACTERIAL CULTURE, AEROBIC + SUSC, URINE Routine 08/22/2023 12:47 PM LINUX PROGRAMMER Frequency Urinary HPV WITH GENOTYPING, PCR, THINPREP Routine 06/02/2021 10:06 AM LINUX PROGRAMMER HIV-1 P24 AG, HIV-1/2 AB ,P Routine 05/20/2018 12:40 PM LINUX PROGRAMMER Examination Test With Positive Result HCV AB SCRN W/REFLEX TO HCV PCR, S Routine 11/03/2015 3:08 PM CDT from Last 3 Months or Most Recently Relevant to Health Maintenance Results * Giardia Antigen, Feces (08/23/2023 10:40 AM LINUX PROGRAMMER) Giardia Ag, F Negative Negative 08/26/2023 7:15 PM LINUX PROGRAMMER DT Comment: ----ADDITIONAL INFORMATION---- Test Performed by Enzyme Immunoassay. Stool (Stool) 08/23/2023 10: 40 AM LINUX PROGRAMMER 08/24/2023 8:47 AM LINUX PROGRAMMER Ashlee Garcia APRN.N.P., D .N.P. LAB MICROBIOLOGY - GENERAL ORDERABLES [facility] [address] [place] [address], [facility] DT [address] [place] [address] * Calprotectin, Feces (08/23/2023 9:50 AM LINUX PROGRAMMER) Calprotectin, F <50.0 <50.0 (Normal) mcg/g 08/26/2023 6:06 PM LINUX PROGRAMMER [facility] Stool (Stool) 08/23/2023 9:5 0 AM LINUX PROGRAMMER 08/26/2023 7:34 AM LINUX PROGRAMMER Rose Mary Perkins APRN, Ashlee.N.PGenet, D .N.P. LAB BODY FLUIDS AND STOOLS ORDERABLES Performing Organization Address City/[facility]/ZIP Co de Phone Number [facility] [address] [place] [address] [facility] [address] [place] [address] * Hepatic Function Panel (08/22/2023 12:52 PM LINUX PROGRAMMER) Bilirubin, Total, P <0.2 0.0 - 1.2 mg/dL 08/22/2023 6:24 PM LINUX PROGRAMMER OWAT Bilirubin, Direct, P <0.2 0.0 - 0.3 mg/dL 08/22/2023 6:24 PM LINUX PROGRAMMER OWAT Aspartate Aminotransferase (AST), P 18 8 - 43 U/L 08/22/2023 6:24 PM LINUX PROGRAMMER OWAT Alanine Aminotransferase (ALT), P 15 7 - 45 U/L 08/22/2023 6:24 PM LINUX PROGRAMMER OWAT Alkaline Phosphatase, P 57 35 - 104 U/L 08/22/2023 6:24 PM LINUX PROGRAMMER OWAT Albumin, P 4.7 3.5 - 5.0 g/dL 08/22/2023 6:24 PM LINUX PROGRAMMER OWAT Protein, Total, P 7.2 6.3 - 7.9 g/dL 08/22/2023 6:24 PM LINUX PROGRAMMER OWAT Blood (Blood, Venous) 08/22/2023 12:52 PM LINUX PROGRAMMER 08/22/2023 5:51 PM LINUX PROGRAMMER Rose Mary Perkins APRN, C.N.P., D .N.P. LAB BLOOD ADD-ON [facility] [address] [place] [address], [facility] OWAT [facility] in [place] [address] [place] [address] * Celiac Disease Serology Mazon (08/22/2023 12:52 PM LINUX PROGRAMMER) Immunoglobulin A (IgA), S 209 61 - 356 mg/dL 08/23/2023 8:00 AM LINUX PROGRAMMER [facility] Celiac Disease Interpretation See Comment: Negative serology. Celiac disease unlikely. However, approximately 10% of patients with celiac disease are seronegative. Also, patients who are already adhering to a gluten-free diet may be seronegative. If celiac disease is highly clinically suspected, consider HLA-DQ typing. 08/23/2023 10:27 PM LINUX PROGRAMMER [facility] Blood (Blood, Venous) 08/22/2023 12:52 PM LINUX PROGRAMMER 08/23/2023 7:15 AM LINUX PROGRAMMER Narrative [facility] - 08/23/2023 10:27 PM LINUX PROGRAMMER Specimen Information: Specimen ID: [id number] Specimen Type: Blood Specimen Collection Start Date: 08/22/2023 12:52 PM Specimen Received Date: 08/23/2023 ??7:15 AM Specimen ID: [id number] Specimen Type: Blood Specimen Collection Start Date: 08/22/2023 12:52 PM Specimen Received Date: 08/23/2023 ??6:09 AM Rose Mary Perkins APRN, C.N.P., Nahomy .N.P. LAB BLOOD ADD-ON Performing Organization Address [facility] Co de Phone Number [facility] [address] [place] [address] [facility] [address] [place], [place] [phone] [place] [address] [address] [place] [place] [address] * tTG (Tissue Transglutaminase), Antibody, IgA (08/22/2023 12:52 PM LINUX PROGRAMMER) [facility] Tissue Transglutaminase Ab, IgA, S 2.0 <4.0 (Negative ) U/mL 08/23/2023 11:37 AM LINUX PROGRAMMER [facility] Blood 08/22/2023 12:5 2 PM LINUX PROGRAMMER 08/23/2023 8:08 AM LINUX PROGRAMMER Rose Mary Perkins APRN, C.N.P., D .N.P. LAB BLOOD ADD-ON Performing Organization Address [facility] de Phone Number [facility] [address] [place] [address] [facility] [address] [place] [address] * Ferritin (08/22/2023 12:52 PM LINUX PROGRAMMER) [facility] Ferritin, S 42 6 - 175 mcg/L 08/22/2023 6:22 PM LINUX PROGRAMMER OWAT Comment: Biotin has been identified by the pile trimmer as a potential interfering substance. Higher concentrations of biotin may be found in multivitamins, hair/nail supplements, and workout supplements. If the result does not match clinical observations, repeat testing after patient refrains from the use of supplements for at least 12 hours. Blood (Blood, Venous) 08/22/2023 12:52 PM LINUX PROGRAMMER 08/22/2023 5:51 PM LINUX PROGRAMMER Keegan Garcia APRNNMisty., D .N.P. LAB BLOOD ADD-ON [facility] [address] [place] [address], [place] OWAT [facility] in [place] [address] [place] [address] * Urinalysis with Microscopic if Indicated (08/22/2023 12:47 PM LINUX PROGRAMMER) Source Urine, Urine, Midstream 08/22/2023 1:30 PM LINUX PROGRAMMER FB60 Clarity Clear Clear 08/22/2023 1:45 PM LINUX PROGRAMMER FB60 Color Yellow 08/22/2023 1:45 PM LINUX PROGRAMMER FB60 Comment: ----REFERENCE VALUE---- Colorless Yellow Aniyah Blood Negative Negative 08/22/2023 1:45 PM LINUX PROGRAMMER FB60 Nitrite Negative Negative 08/22/2023 1:45 PM LINUX PROGRAMMER FB60 Leukocyte Esterase Negative Negative 08/22/2023 1:45 PM LINUX PROGRAMMER FB60 Protein Negative mg/dL 08/22/2023 1:45 PM LINUX PROGRAMMER FB60 Comment: ----REFERENCE VALUE---- Negative Trace Glucose Negative Negative mg/dL 08/22/2023 1:45 PM LINUX PROGRAMMER FB60 Ketones, QI(U) Negative Negative mg/dL 08/22/2023 1:45 PM LINUX PROGRAMMER FB60 Bilirubin Negative Negative 08/22/2023 1:45 PM LINUX PROGRAMMER FB60 pH 5.5 5.0 - 8.0 08/22/2023 1:45 PM LINUX PROGRAMMER FB60 Specific Weare >=1.030 1.001 - 1.035 08/22/2023 1:45 PM LINUX PROGRAMMER FB60 Urobilinogen 0.2 0.2 - 1.0 mg/dL 08/22/2023 1:45 PM LINUX PROGRAMMER FB60 Urine (Urine, Midstream) 08/22/2023 12:47 PM LINUX PROGRAMMER 08/22/2023 1:29 PM LINUX PROGRAMMER Ashlee Garcia APRN.N.P., D .N.P. LAB URINE ORDERABLES [facility] [address] [place] [address], [facility] FB60 [facility] in [place] [address] [place] [address] * Bacterial Culture, Aerobic + Susceptibility, Urine (08/22/2023 12:47 PM LINUX PROGRAMMER) Urine Culture No growth after 1 day of incubation. 08/23/2023 12:31 PM LINUX PROGRAMMER TO Urine (Urine, Midstream) 08/22/2023 12:47 PM LINUX PROGRAMMER 08/22/2023 7:13 PM LINUX PROGRAMMER Comment:Specimen Source Site : Urine Rose Mary Perkins APRN, C.N.P., D .N.P. LAB MICROBIOLOGY - GENERAL ORDERABLES Performing Organization Address City/[facility]/ZIP Co de Phone Number [facility] [address] [place] [address] * HPV with Genotyping, PCR, ThinPrep (06/02/2021 10:06 AM LINUX PROGRAMMER) HPV with Genotyping, ThinPrep, PCR Negative Negative 06/05/2021 6:05 PM LINUX PROGRAMMER TO Comment: Negative for high risk HPV by nucleic acid amplification. ??The following high risk HPV types were not detected: 16, 18, 31, 33, 35, 39, 45, 51, 52, 56, 58, 59, 66, and 68 Varies 06/02/2021 10:0 6 AM LINUX PROGRAMMER 06/05/2021 6:51 AM LINUX PROGRAMMER Cyrus Parker M.D. LAB MICROBIOLOGY - G ENERAL ORDERABLES Performing Organization Address City/[facility]/ZIP Co de Phone Number [facility] [address] [place] [address] * HIV-1 p24 Ag, HIV-1/2 Ab ,P (05/20/2018 12:40 PM LINUX PROGRAMMER) HIV Ag/Ab Scrn, P Negative Negative 05/21/2018 1:55 PM LINUX PROGRAMMER [facility] Comment: Negative result does not rule out HIV infection. If exposure to HIV infection occurred <14 days ago, contact the laboratory to request addition of HIV-1 RNA detection / quantification test. HIV-1 p24 Ag Scrn, P Negative Negative 05/21/2018 1:55 PM LINUX PROGRAMMER [facility] Comment: Negative result does not rule out HIV infection. If exposure to HIV infection occurred <14 days ago, contact the laboratory to request addition of HIV-1 RNA detection / quantification test. HIV-1 Ab Scrn, P Negative Negative 05/21/2018 1:55 PM LINUX PROGRAMMER [facility] Comment: Negative result does not rule out HIV infection. If exposure to HIV infection occurred <14 days ago, contact the laboratory to request addition of HIV-1 RNA detection / quantification test. HIV-2 Ab Scrn, P Negative Negative 05/21/2018 1:55 PM LINUX PROGRAMMER [facility] Comment: Negative result does not rule out HIV infection. If exposure to HIV infection occurred <14 days ago, contact the laboratory to request addition of HIV-1 RNA detection / quantification test. Blood (Blood, Venous) 05/20/2018 12:40 PM LINUX PROGRAMMER 05/21/2018 11:59 AM LINUX PROGRAMMER Nicol Brady M.D. LAB MICROBIOLOGY - BLOOD ORDERABLES [facility] [address] [place] [address] * HCV Ab w/Reflex to HCV PCR, S (medicare) (11/03/2015 3:08 PM CDT) HXHCV Ab [facility] Negative Negative POWERCHART Comment: Fizbkz-uo-pnlfxi ratio is <1.00. Test Performed by: [address] [address] End Stapler: Santo Hopkins II, M.D., Ph.D. Blood 11/03/2015 3:08 PM CDT Kimo Foster M.D. LAB MICROBIOLOGY - BLOOD ORDERABLES POWERCHART from Last 3 Months or Most Recently Relevant to Health Maintenance Care Teams Last Repairer Relationship Specialty Start Date End Date Delroy-Rose Mary Guidry APRN, C.N.P., D.N.P. [address], [place] [phone] PCP - General 01/07/23
--- OUTSIDE RECORDS SUMMARY | 2023-10-30 08:46 | XMS_ITS | Continuity of Care Document ---
Author Name Unknown Address [address] [place] [address] Phone [phone] Organization [facility] Office Address [address] [place] [address] [address] [place] [address] Assessment Encounter Date Assessment Date Assessment LastModified by Organization Details LastModified Time 10/08/2023 10/08/2023 I did discussed findings with [...] record ed. Surgeries None record ed. Imaging None record ed. Medication Orders None record ed. Patient TargetsNo targets recorded. Patient InstructionsNo instructions recorded. Reason for Referral None Reported. Problems Name Status Onset Date Resolution Date Notes Provider Name and Address Organization Details Recorded Time Acquired hallux rigidus Active 06/21/20 16 Acquired hallux rigidus; Original Code: [id number] Or iginal Codesystem: SNOMED CT Classifi cation: Medical Con firmation Status: Confirmed Not Available [employer] 09/18/2022 09:10:51 Problem Notes None recorded. Procedures Surgical History Date Name Laterality Status Provider Name and Address Organization Details Recorded Time 04/04/20 23 CallusDEBRIDEMENT completed Shreyas ashford, [facility] 04/04/2023 10:45:58 Imaging Results None recorded. Procedure Notes None recorded. Medical Equipment None [...] Available Not Available No t Available Vitals None Recorded Social History None recorded. Functional Status None recorded. Mental Status None recorded. Family History Nothing Reported. Medical History No medical history recorded. Gynecological HistoryNo gynecological history recorded. Obstetrics History GPAL:G 0 P 0 0 0 0 Past Encounters Encounter ID Performer Location Encounter Start Date Encounter Closed Date Diagnosis/Indication Diagnosis SNOMED-CT Code [id number] Shreyas Magana [place] [facility] [address] [place] [phone] 10/08/2023 15:14:14 10/09/2023 12:09:45 Pain in left foot [id number] Pain in right foot [id number] Postoperative care [id number] Health Concerns Section Related Observation LastModified by Organization Detai ls LastModified Time None Recorded Concern Status LastModified by Organization Details LastModified Time None Recorded Payers Encounter Date Sequence Insurance Name Policy Number Policy May Covered Member ID May Member ID Guarantor Name 10/08/2023 1 [facility] - DOS ON OR AFTER 2021 [id number] Keily Trivedi [id number] Keily Trivedi Notes Date Note Type Note Provider Name and Address Organization Details Recorded Time 10/08/2023 text/html HPI Notes: The patient is [...] and good range of motion. RUEL Carrasco - [facility] 10/08/2023 17:08:46 OBGyn Episode No OBEpisode recorded.
--- OUTSIDE RECORDS SUMMARY | 2023-10-30 08:46 | XMS_ITS ---
Author Name Unknown Organization [facility] Address [address] [place] [address] Care Team Providers Care Top Collar Baster Name Role Phone Unavailable Unavailable Unavailable Surgery Details Not on file Complications Check Surgery Details section. Procedure Estimated Blood Loss Check Surgery Details section. Procedure Findings Check Surgery Details section. Procedure Specimens Taken Check Surgery Details section.
--- OUTSIDE RECORDS SUMMARY | 2023-10-30 08:46 | XMS_ITS | Referral Summary ---
Author Name Unknown Organization [facility] Address [address] [place] [address] Care Team Providers Care Chain Puller Name Role Phone Rose Mary Perkins APRN, C.N.P., D.N.P. [facility] Care Provider Source Comments Patient records contain information from all sites at [facility]. For routine questions regarding patient records, call [phone] during business hours, M-F 8:00 AM - 5:00 PM Central Time. Record requests for emergency care only can be directed to [phone] at any time.[facility] Encounters Date Type Department Care Team Description 10/22/2023 Clinical Communication Department of Otorhinolaryngology in [place], [place] [address] [phone] Jayden Rowell M.D. SURGERY DATE - ENT 10/21/2023 3:30 PM CDT Office Visit Department of Otorhinolaryngology in [address] [phone] Leena Cruz P.A.-C. Tonsillitis Recurrent (Primary Dx); Abscess Peritonsillar 10/18/2023 Refill Department of Family Medicine, [facility], in [address] [phone] Rose Mary Perkins APRN, C.N.P., D.N.P. Med Refill 10/18/2023 Refill Department of Family Medicine, [facility], in [address] [phone] Rose Mary Perkins APRN C.N.PGenet, D.N.P. Med Refill 10/04/2023 11:30 AM CDT Comprehensive Visit Department of Urology in [place], [place] [address] [place] [address] Yael Centeno APRN, C.N.P. 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 Frequency Urinary Discharge Disposition: Home or Self Care 08/22/2023 12:37 PM CREDENTIALING COORDINATOR Hospital Encounter Department of Laboratory Medicine in [address] [phone] Rose Mary Perkins APRN C.N.P., D.N.P. Frequency Urinary Discharge Disposition: Home or Self Care 08/22/2023 12:37 PM CREDENTIALING COORDINATOR Hospital Encounter Department of Laboratory Medicine in [address] [phone] Rose Mary Perkins APRN C.N.P., D.N.P. Frequency Urinary Discharge Disposition: Home or Self Care 08/22/2023 12:00 PM CREDENTIALING COORDINATOR Comprehensive Visit Department of Family [facility], [facility], in [address] [phone] Rose Mary Perkins APRN C.N.PGenet, D.N.P. Frequency Urinary (Primary Dx); Diarrhea 08/14/2023 Refill Department of Family Medicine, [facility], in [address] [phone] Edel Grewal M.D. Med Refill 08/14/2023 Refill Department of [facility], [facility], [address] [phone] John Tong M.D. Med Refill 08/14/2023 Refill Department of Family [facility], [facility], [address] [phone] Malou Medeiros APRN, C.N.P. Med Refill 08/14/2023 Refill Department of [facility], [address] [phone] Edel Grewal M.D. Med Refill 08/14/2023 Refill Department of [facility], [address] [phone] Edel Grewal M.D. Med Refill 08/07/2023 Refill Department of [facility], [place], [place] [address] [place] [phone] Edel Grewal M.D. Med Refill from Last 3 Months Allergies Active Allergy Reactions Criticality Noted Date [...] consistent with 7wk [facility] [place]'s provider: Jane OB education completed. Pre-reg completed at [facility]. FOB involved- NO- MOM AND SISTER FOR [...] Asthma NOS 09/15/2012 05/13/2019 Overview: Asthma, Unspecified Immunizations Name Administration Dates Next Due 4vHPV [...] quad (FLUZONE/FLUARIX) (6 months and older)(PF) 04/30/2022,05/20/2021,07/05/2020,2018,04/30/2018,07/12/2017,05/17/2016 Social History Tobacco Use Types Packs/Day Years Used Date Smoking Tobacco: Light Smoker Cigarettes 0.5 6 Smokeless Tobacco: Never Tobacco Cessation:Ready to Q uit: Not Asked; Counseling Given: Not Answered Alcohol Use Standard Drinks/Week Comments No 0 (1 standard drink = 0.6 oz pur e alcohol) [facility] Utilities Answer Date Recorded In the past 12 months has e [employer], [employer], oil, or water [employer] threatened to shut off services in your [...] 11/06/2021 How often do you attend chur or spiritism services? Patient declined 11/06/2021 Do you belong to any clubs o r organizations such as gnosticist groups, unions, fraternal or athletic groups, or [...] Answer Date Recorded PHQ-2 Score 1 08/14/2023 [facility] - [...] your living situation today? I have a manuel place to live 08/22/2023 Education Answer Date [...] Comments Blood Pressure 103/67 08/22/2023 12:06 PM CREDENTIALING COORDINATOR Pulse 84 08/22/2023 12:06 PM CREDENTIALING COORDINATOR Temperature 35.7 ??C (96.2 ??F) 08/22/2023 1 2:06 PM CREDENTIALING COORDINATOR Respiratory Rate 24 08/22/2023 12:0 6 PM CREDENTIALING COORDINATOR Oxygen Saturation 98% 04/12/2023 3:45 PM CDT Inhaled Oxygen Concentration - - Weight 82.5 kg (181 lb 14.1 oz) 024 12:06 PM CREDENTIALING COORDINATOR Height 167.5 cm (5' 5.95) 08/22/2023 1 2:06 PM CREDENTIALING COORDINATOR Body Mass Index 29.41 08/22/2023 12:06 PM CREDENTIALING COORDINATOR Plan of Treatment Upcoming Encounters Date Type Department Care Team (Late st Contact Info) Description 10/30/2023 3:30 PM CDT Appointment Department of Radiology in [place], [place] [address], [place] [phone] Leena Cruz P.A.-C. [address] [place] [phone] 10/31/2023 4:00 PM CDT Office Visit Department of Family Medicine, [facility], in [place], [place] [address] [place] [phone] Rose Mary Perkins APRN, C.N.P., D.N.P. [address] [place] [phone] Medical Devices Implanted Type Area Solar Mechanical Engineer Device Identifier Shelf Expiration Date Model / Serial / Lot Hardware E.G. Pins/Screws/Ro ds Hardware e.g. pins/screws/ rods Right: Foot Procedures Procedure Name Priority Date/Time Associated Diagnosis Comments GIARDIA ANTIGEN, F Routine 08/23/2023 10 :40 AM CREDENTIALING COORDINATOR Frequency Urinary CALPROTECTIN, F Routine 08/23/2023 9:50 AM CREDENTIALING COORDINATOR Frequency Urinary TISSUE TRANSGLUTAMINASE (TTG) AB, IGA, S Routine 08/22/2023 12:52 PM CREDENTIALING COORDINATOR FERRITIN, S Routine 08/22/2023 12:52 PM CREDENTIALING COORDINATOR Frequency Urinary CELIAC DISEASE SEROLOGY CASCADE, S Routine 08/22/2023 12:52 PM CREDENTIALING COORDINATOR Frequency Urinary HEPATIC FUNCTION PANEL, S Routine 08/22/2023 12:52 PM CREDENTIALING COORDINATOR Frequency Urinary URINALYSIS WITH MICROSCOPIC IF INDICATED, U Routine 08/22/2023 12:47 PM CREDENTIALING COORDINATOR Frequency Urinary BACTERIAL CULTURE, AEROBIC + SUSC, URINE Routine 08/22/2023 12:47 PM CREDENTIALING COORDINATOR Frequency Urinary HPV WITH GENOTYPING, PCR, THINPREP Routine 06/02/2021 10:06 AM CREDENTIALING COORDINATOR HIV-1 P24 AG, HIV-1/2 AB ,P Routine 05/20/2018 12:40 PM CREDENTIALING COORDINATOR Examination Test With Positive Result HCV AB SCRN W/REFLEX TO HCV PCR, S Routine 11/03/2015 3:08 PM CDT from Last 3 Months or Most Recently Relevant to Health Maintenance Results * Giardia Antigen, Feces (08/23/2023 10:40 AM CREDENTIALING COORDINATOR) Giardia Ag, F Negative Negative 08/26/2023 7:15 PM CREDENTIALING COORDINATOR DTL Comment: ----ADDITIONAL INFORMATION---- Test Performed by Enzyme Immunoassay. Stool (Stool) 08/23/2023 10: 40 AM CREDENTIALING COORDINATOR 08/24/2023 8:47 AM CREDENTIALING COORDINATOR Keegan Garcia APRNN.Claudia, D .N.P. LAB MICROBIOLOGY - GENERAL ORDERABLES Performing Organization Address City/[facility]/ZIP Co de Phone Number [facility] [address] [place] [address], [facility] DTL [address] [facility] [address] [place] [address] * Calprotectin, Feces (08/23/2023 9:50 AM CREDENTIALING COORDINATOR) Calprotectin, F <50.0 <50.0 (Normal) mcg/g 08/26/2023 6:[address] [facility] Stool (Stool) 08/23/2023 9:5 0 AM CREDENTIALING COORDINATOR 08/26/2023 7:34 AM CREDENTIALING COORDINATOR Ashlee Garcia APRN.N.Claudia, D .N.P. LAB BODY FLUIDS AND STOOLS ORDERABLES [facility] [address] [place] [address] [facility] [address] [place] [address] * Hepatic Function Panel (08/22/2023 12:52 PM CREDENTIALING COORDINATOR) Bilirubin, Total, P <0.2 0.0 - 1.2 mg/dL 08/22/2023 6:24 PM CREDENTIALING COORDINATOR OWAT Bilirubin, Direct, P <0.2 0.0 - 0.3 mg/dL 08/22/2023 6:24 PM CREDENTIALING COORDINATOR OWAT Aspartate Aminotransferase (AST), P 18 8 - 43 U/L 08/22/2023 6:24 PM CREDENTIALING COORDINATOR OWAT Alanine Aminotransferase (ALT), P 15 7 - 45 U/L 08/22/2023 6:24 PM CREDENTIALING COORDINATOR OWAT Alkaline Phosphatase, P 57 35 - 104 U/L 08/22/2023 6:24 PM CREDENTIALING COORDINATOR OWAT Albumin, P 4.7 3.5 - 5.0 g/dL 08/22/2023 6:24 PM CREDENTIALING COORDINATOR OWAT Protein, Total, P 7.2 6.3 - 7.9 g/dL 08/22/2023 6:24 PM CREDENTIALING COORDINATOR OWAT Blood (Blood, Venous) 08/22/2023 12:52 PM CREDENTIALING COORDINATOR 08/22/2023 5:51 PM CREDENTIALING COORDINATOR Rose Mary Perkins APRN, C.N.P., D .N.P. LAB BLOOD ADD-ON [facility] [address] [place] [address], [facility] OWAT [facility] [place] [address] [place] [address] * Celiac Disease Serology Kiefer (08/22/2023 12:52 PM CREDENTIALING COORDINATOR) Pathologist [facility] Immunoglobulin A (IgA), S 209 61 - 356 mg/dL 08/23/2023 8:00 AM [facility] Celiac Disease Interpretation See Comment: Negative serology. Celiac disease unlikely. However, approximately 10% of patients with celiac disease are seronegative. Also, patients who are already adhering to a gluten-free diet may be seronegative. If celiac disease is highly clinically suspected, consider HLA-DQ typing. 08/23/2023 10:27 PM [facility] Blood (Blood, Venous) 08/22/2023 12:52 PM CREDENTIALING COORDINATOR 08/23/2023 7:15 AM CREDENTIALING COORDINATOR Narrative [facility] - 08/23/2023 10:27 PM CREDENTIALING COORDINATOR Specimen Information: Specimen ID: [id number] Specimen Type: Blood Specimen Collection Start Date: 08/22/2023 12:52 PM Specimen Received Date: 08/23/2023 ??7:15 AM Specimen ID: [id number] Specimen Type: Blood Specimen Collection Start Date: 08/22/2023 12:52 PM Specimen Received Date: 08/23/2023 ??6:09 AM Keegan Garcia APRNNJoss, Nahomy .N.P. LAB BLOOD ADD-ON Performing Organization Address City/[facility]/ZIP Co de Phone Number [facility] [address] [place] [address] [facility] [address] [place], [place] [phone] [place] [address] [address] [facility] [place] [address] * tTG (Tissue Transglutaminase), Antibody, IgA (08/22/2023 12:52 PM CREDENTIALING COORDINATOR) Tissue Transglutaminase Ab, IgA, S 2.0 <4.0 (Negative ) U/mL 08/23/2023 11:[address] [facility] Blood 08/22/2023 12:5 2 PM CREDENTIALING COORDINATOR 08/23/2023 8:08 AM CREDENTIALING COORDINATOR Keegan Garcia APRNNJoss, D .N.P. LAB BLOOD ADD-ON Performing Organization Address City/[facility] Co de Phone Number [facility] [address] [place] [address] [facility] [address] [place] [address] * Ferritin (08/22/2023 12:52 PM CREDENTIALING COORDINATOR) Ferritin, S 42 6 - 175 mcg/L 08/22/2023 6:22 PM CREDENTIALING COORDINATOR OWAT Comment: Biotin has been identified by the bank clerk as a potential interfering substance. Higher concentrations of biotin may be found in multivitamins, hair/nail supplements, and workout supplements. If the result does not match clinical observations, repeat testing after patient refrains from the use of supplements for at least 12 hours. Blood (Blood, Venous) 08/22/2023 12:52 PM CREDENTIALING COORDINATOR 08/22/2023 5:51 PM CREDENTIALING COORDINATOR Ashlee Garcia APRN.N.P., D .N.P. LAB BLOOD ADD-ON [facility] [address] [place] [address], [place] [address] [facility] [place] [address] [place] [address] * Urinalysis with Microscopic if Indicated (08/22/2023 12:47 PM CREDENTIALING COORDINATOR) Source Urine, Urine, Midstream 08/22/2023 1:30 PM CREDENTIALING COORDINATOR FB60 Clarity Clear Clear 08/22/2023 1:45 PM CREDENTIALING COORDINATOR FB60 Color Yellow 08/22/2023 1:45 PM CREDENTIALING COORDINATOR FB60 Comment: ----REFERENCE VALUE---- Colorless Yellow Aniyah Blood Negative Negative 08/22/2023 1:45 PM CREDENTIALING COORDINATOR FB60 Nitrite Negative Negative 08/22/2023 1:45 PM CREDENTIALING COORDINATOR FB60 Leukocyte Esterase Negative Negative 08/22/2023 1:45 PM CREDENTIALING COORDINATOR FB60 Protein Negative mg/dL 08/22/2023 1:45 PM CREDENTIALING COORDINATOR FB60 Comment: ----REFERENCE VALUE---- Negative Trace Glucose Negative Negative mg/dL 08/22/2023 1:45 PM CREDENTIALING COORDINATOR FB60 Ketones, QI(U) Negative Negative mg/dL 08/22/2023 1:45 PM CREDENTIALING COORDINATOR FB60 Bilirubin Negative Negative 08/22/2023 1:45 PM CREDENTIALING COORDINATOR FB60 pH 5.5 5.0 - 8.0 08/22/2023 1:45 PM CREDENTIALING COORDINATOR FB60 Specific Spring >=1.030 1.001 - 1.035 08/22/2023 1:45 PM CREDENTIALING COORDINATOR FB60 Urobilinogen 0.2 0.2 - 1.0 mg/dL 08/22/2023 1:45 PM CREDENTIALING COORDINATOR FB60 Urine (Urine, Midstream) 08/22/2023 12:47 PM CREDENTIALING COORDINATOR 08/22/2023 1:29 PM CREDENTIALING COORDINATOR Keegan Garcia APRNN.P., D .N.P. LAB URINE ORDERABLES [facility] [address] [place] [address], [facility] FB60 [facility] in [place] [address] [place] [address] * Bacterial Culture, Aerobic + Susceptibility, Urine (08/22/2023 12:47 PM CREDENTIALING COORDINATOR) Pathologist [facility] Urine Culture No growth after 1 day of incubation. 08/23/2023 12:31 PM CREDENTIALING COORDINATOR [facility] Urine (Urine, Midstream) 08/22/2023 12:47 PM CREDENTIALING COORDINATOR 08/22/2023 7:13 PM CREDENTIALING COORDINATOR Comment:Specimen Source Site : Urine Rose Mary Perkins APRN, C.N.P., D .N.P. LAB MICROBIOLOGY - GENERAL ORDERABLES Performing Organization Address City/[facility] Co de Phone Number [facility] [address] [place] [address] * HPV with Genotyping, PCR, ThinPrep (06/02/2021 10:06 AM CREDENTIALING COORDINATOR) Pathologist [facility] HPV with Genotyping, ThinPrep, PCR Negative Negative 06/05/2021 6:05 PM CREDENTIALING COORDINATOR TO Comment: Negative for high risk HPV by nucleic acid amplification. ??The following high risk HPV types were not detected: 16, 18, 31, 33, 35, 39, 45, 51, 52, 56, 58, 59, 66, and 68 Varies 06/02/2021 10:0 6 AM CREDENTIALING COORDINATOR 06/05/2021 6:51 AM CREDENTIALING COORDINATOR Cyrus Parker M.D. LAB MICROBIOLOGY - G ENERAL ORDERABLES Performing Organization Address City/[facility]/ZIP Co de Phone Number [facility] [address] [place] [address] * HIV-1 p24 Ag, HIV-1/2 Ab ,P (05/20/2018 12:40 PM CREDENTIALING COORDINATOR) HIV Ag/Ab Scrn, P Negative Negative 05/21/2018 1:55 PM CREDENTIALING COORDINATOR [facility] Comment: Negative result does not rule out HIV infection. If exposure to HIV infection occurred <14 days ago, contact the laboratory to request addition of HIV-1 RNA detection / quantification test. HIV-1 p24 Ag Scrn, P Negative Negative 05/21/2018 1:55 PM CREDENTIALING COORDINATOR [facility] Comment: Negative result does not rule out HIV infection. If exposure to HIV infection occurred <14 days ago, contact the laboratory to request addition of HIV-1 RNA detection / quantification test. HIV-1 Ab Scrn, P Negative Negative 05/21/2018 1:55 PM CREDENTIALING COORDINATOR [facility] Comment: Negative result does not rule out HIV infection. If exposure to HIV infection occurred <14 days ago, contact the laboratory to request addition of HIV-1 RNA detection / quantification test. HIV-2 Ab Scrn, P Negative Negative 05/21/2018 1:55 PM CREDENTIALING COORDINATOR [facility] Comment: Negative result does not rule out HIV infection. If exposure to HIV infection occurred <14 days ago, contact the laboratory to request addition of HIV-1 RNA detection / quantification test. Blood (Blood, Venous) 05/20/2018 12:40 PM CREDENTIALING COORDINATOR 05/21/2018 11:59 AM CREDENTIALING COORDINATOR Nicol Brady M.D. LAB MICROBIOLOGY - BLOOD ORDERABLES [facility] [address] [place] [address] * HCV Ab w/Reflex to HCV PCR, S (medicare) (11/03/2015 3:08 PM CDT) HXHCV Ab [facility] Negative Negative POWERCHART Comment: Aqnfsq-xa-stbbkt ratio is <1.00. Test Performed by: [address] [address] Tool Die Maker: Santo Hopkins II, M.D., Ph.D. Blood 11/03/2015 3:08 PM CDT Kimo Foster M.D. LAB MICROBIOLOGY - BLOOD ORDERABLES POWERCHART from Last 3 Months or Most Recently Relevant to Health Maintenance Care Teams Chain Puller Relationship Specialty Start Date End Date Delroy-Rose Mary Guidry APRN, C.N.P., D.N.P. [address], [place] [phone] PCP - General 01/07/23
--- OUTSIDE RECORDS SUMMARY | 2023-10-30 08:46 | XMS_ITS | Encounter Summary ---
Author Name Unknown Organization [facility] Address [address] [place] [address] Care Team Providers Care Flap Maker Name Role Phone Rose Mary Perkins APRN, C.N.P., D.N.P. P [facility] Care Provider Encounter Details Date Type Department Care Team (Late st Contact Info) Description 08/22/2023 12:38 PM HEAD START ASSISTANT TEACHER - 08/22/2023 11:59 PM [facility] Hospital Encounter Department of Laboratory Medicine in [address] [phone] Rose Mary Perkins APRN, C.N.P., D.N.P. [address] [phone] Frequency Urinary Discharge Disposition: Home or Self Care Social History Tobacco Use Types Packs/Day Years Used Date Smoking Tobacco: Light Smoker Cigarettes 0.5 6 Smokeless Tobacco: Never Alcohol Use Standard Drinks/Week Comments No 0 (1 standard drink = 0.6 oz pur e alcohol) [facility] Utilities Answer Date Recorded In the past 12 months has [employer], gas, oil, or water [employer] threatened to shut off services in your [...] How often do you attend chur or latter-day services? Patient declined 11/06/2021 Do you belong to any clubs o r organizations such as synagogue groups, unions, fraternal or athletic groups, or [...] Answer Date Recorded PHQ-2 Score 1 08/14/2023 [facility] Occupat ional [facility] - Occupational Stress [...] your living situation today? [facility] a [facility] 08/22/2023 Education Answer [...] PM CDT documented as of this encounter Medications at Time of Discharge Medication Sig Dispensed Refills Start Date End Date albuterol 90 mcg/actuation inhalerIndications:Ast hma Mild Intermittent (HCC) Inhale 1-2 puffs as needed for wheezing or shortness of breath. 18 g 11 11/06/2021 buPROPion (WELLBUTRIN SR) 150 mg 12 hr tabletIndications:Anxi ety Generalized Disorder,Depressed Libido TAKE 1 TABLET(150 MG) BY MOUTH TWICE DAILY 180 tablet 3 08/14/2023 citalopram (CeleXA) 20 mg tabletIndications:Depr ession Major Recurrent (HCC) TAKE 1 TABLET BY MOUTH DAILY ALONG WITH A 10MG FOR A TOTAL DOSE OF 30MG 90 tablet 3 08/14/2023 fluocinolone-hydroquin one-tretinoin (TRI-DEANNA) 0.01-4-0.05 % cream Apply 1 Application topically at bedtime. Apply to affected areas on face. 30 g 1 01/07/2023 hydroquinone 4 % cream Apply 1 Application topically 2 (two) times a day. Apply to face for 2 months. 28.35 g 1 08/15/2023 hydroxychloroquine (PLAQUENIL) 200 mg tablet Take 200 mg by mouth 2 (two) times a day. 05/24/2018 ibuprofen (ADVIL,MOTRIN) 600 mg tablet Take 1 tablet by mouth every 6 (six) hours. 02/01/2020 LGenetacidoph-Lcurly-B.bif -S.therm (BACID) 1 billion cell- 250 mg per tablet Take 1 tablet by mouth 2 (two) times a day with meals. 180 tablet 3 08/28/2023 metroNIDAZOLE (METROCREAM) 0.75 % cream Apply 1 Application topically 2 (two) times a day as needed (rash face). 45 g 3 08/14/2023 multivitamin capsule Take 1 capsule by mouth daily. tretinoin (RETIN-A) 0.025 % creamIndications:Sun Damaged Skin Apply 1 Application topically at bedtime. Apply to face nightly. 45 g 2 08/15/2023 citalopram (CeleXA) 10 mg tablet take 1 tablet by mouth every day 90 tablet 08/07/2023 10/22/2023 documented as of this encounter Plan of Treatment Upcoming Encounters Date Type Department Care Team (Late st Contact Info) Description 10/30/2023 3:30 PM CDT Appointment Department of Radiology in [place], [place] [address] [place] [address] Leena Cruz P.A.-C. [address] [place] [address] 10/31/2023 4:00 PM CDT Office Visit Department of Family Medicine, [facility], in [place], [place] [address] [address] Rose Mary Perkins APRN, C.N.P., D.N.P. [address] [phone] documented as of this encounter Procedures Procedure Name Priority Date/Time Associated Diagnosis Comments URINALYSIS WITH MICROSCOPIC IF INDICATED, U Routine 08/22/2023 12:47 PM HEAD START ASSISTANT TEACHER Frequency Urinary BACTERIAL CULTURE, AEROBIC + SUSC, URINE Routine 08/22/2023 12:47 PM HEAD START ASSISTANT TEACHER Frequency Urinary documented in this encounter Results * Bacterial Culture, Aerobic + Susceptibility, Urine (08/22/2023 12:47 PM HEAD START ASSISTANT TEACHER) Urine Culture No growth after 1 day of incubation. 08/23/2023 12:31 PM HEAD START ASSISTANT TEACHER [facility] Urine (Urine, Midstream) 08/22/2023 12:47 PM HEAD START ASSISTANT TEACHER 08/22/2023 7:13 PM HEAD START ASSISTANT TEACHER Comment:Specimen Source Site : Urine Ashlee Garcia APRN.N.P., D .N.P. LAB MICROBIOLOGY - GENERAL ORDERABLES [facility] [address] [place] [address], [facility] MKTO [facility] [place] [address] [place] [phone] * Urinalysis with Microscopic if Indicated (08/22/2023 12:47 PM HEAD START ASSISTANT TEACHER) Source Urine, Urine, Midstream 08/22/2023 1:30 PM HEAD START ASSISTANT TEACHER FB60 Clarity Clear Clear 08/22/2023 1:45 PM HEAD START ASSISTANT TEACHER FB60 Color Yellow 08/22/2023 1:45 PM HEAD START ASSISTANT TEACHER FB60 Comment: ----REFERENCE VALUE---- Colorless Yellow Aniyah Blood Negative Negative 08/22/2023 1:45 PM HEAD START ASSISTANT TEACHER FB60 Nitrite Negative Negative 08/22/2023 1:45 PM HEAD START ASSISTANT TEACHER FB60 Leukocyte Esterase Negative Negative 08/22/2023 1:45 PM HEAD START ASSISTANT TEACHER FB60 Protein Negative mg/dL 08/22/2023 1:45 PM HEAD START ASSISTANT TEACHER FB60 Comment: ----REFERENCE VALUE---- Negative Trace Glucose Negative Negative mg/dL 08/22/2023 1:45 PM HEAD START ASSISTANT TEACHER FB60 Ketones, QI(U) Negative Negative mg/dL 08/22/2023 1:45 PM HEAD START ASSISTANT TEACHER FB60 Bilirubin Negative Negative 08/22/2023 1:45 PM HEAD START ASSISTANT TEACHER FB60 pH 5.5 5.0 - 8.0 08/22/2023 1:45 PM HEAD START ASSISTANT TEACHER FB60 Specific [place] >=1.030 1.001 - 1.035 08/22/2023 1:45 PM HEAD START ASSISTANT TEACHER FB60 Urobilinogen 0.2 0.2 - 1.0 mg/dL 08/22/2023 1:45 PM HEAD START ASSISTANT TEACHER FB60 Urine (Urine, Midstream) 08/22/2023 12:47 PM HEAD START ASSISTANT TEACHER 08/22/2023 1:29 PM HEAD START ASSISTANT TEACHER Rose Mary Perkins APRN, C.N.P., D .N.P. LAB URINE ORDERABLES [facility] [address] [place] [address], [facility] FB60 [facility] in [place] [address] [place] [address] documented in this encounter Visit Diagnoses Diagnosis Frequency Urinary documented in this encounter Additional Health Concerns Assessment Noted Time PHQ-9 Depression Total Score: 3 08/14/19 24 10:08 AM HEAD START ASSISTANT TEACHER documented as of this encounter Care Teams Flap Maker Relationship Specialty Start Date End Date Rose Mary Perkins APRN, C.N.P., D.N.P. [address] [place] [address] PCP - General 01/07/23 documented as of this encounter
--- OUTSIDE RECORDS SUMMARY | 2023-10-30 08:46 | XMS_ITS | Referral Summary ---
Author Name Unknown Organization [facility] Address [address] [place] [address] Care Team Providers Care Boat Carpenter Name Role Phone Jody Muller NP Primary Care Provider [phone] Allergies No known active allergies Medications Medication Sig Dispensed Refills Start Date End Date Status levonorgestrel-ethin yl estradiol (AVIANE,ALEWANGE,LESSI NA) 0.1-20 MG-MCG per tabletIndications:Ir regular periods Take 1 tablet by mouth daily. 3 Package 0 12/11/2011 Active albuterol (PROVENTIL HFA: VENTOLIN HFA) 108 (90 BASE) MCG/ACT inhalerIndications:I ntermittent asthma Inhale 2 puffs into the lungs every 6 hours as needed for shortness of breath / dyspnea. 1 Inhaler 3 03/27/2012 Active citalopram (CELEXA) 20 MG tabletIndications:Mi ld major depression (H24) Take 1.5 tablets by mouth daily. This refill only pt due for follow up 45 tablet 0 11/15/2012 Active Active Problems Problem Noted Date Diagnosed Date Anxiety 05/11/2012 Hyperlipidemia LDL goal <160 03/27/2012 Irregular periods 06/27/2011 Mild major depression 06/27/2011 Overview: [facility] Intermittent asthma 06/27/2011 Smoker Immunizations Name Administration Dates Next Due HPV 03/27/2012,06/27/2011,03/27/2011 10/27/2011 Influenza (IIV3) PF 03/27/2012,03/27/2011,2009 Mantoux Tuberculin Skin Test 08/20/2011 Meningococcal (Menomune??) 08/09/2010 TD,PF 7+ (Tenivac) 07/10/2005 Social History Tobacco Use Types Packs/Day Years Used Date Smoking Tobacco: Every Day Cigarettes Smokeless Tobacco: Never Alcohol Use Standard Drinks/Week Comments No 0 (1 standard drink = 0.6 oz pur e alcohol) Adolescent Education Answer Date Record ed Getting School Help Needed Not on file 04/28 Sex and Gender Information Value Date Recorded Sex Assigned at Not on file Gender Identity Not on file Sexual Orientation Not on file Last Filed Vital Signs Vital Sign Reading Time Taken Comments Blood Pressure 116/74 11/26/2021 5:10 PM CDT Pulse 90 11/26/2021 5:10 PM CDT Temperature 36.9 ??C (98.4 ??F) 11/26/2021 11:50 AM C DT Respiratory Rate 18 11/26/2021 4:00 PM CDT Oxygen Saturation 100% 11/26/2021 5:10 PM CDT Inhaled Oxygen Concentration - - Weight 64 kg (141 lb) 03/27/2012 9:22 AM CDT Height 165.1 cm (5' 5) 03/27/2012 9:22 AM CDT Body Mass Index 23.46 03/27/2012 9:22 AM CDT Plan of Treatment Not on file Procedures Procedure Name Priority Date/Time Associated Diagnosis Comments ASTHMA ACTION PLAN Routine 08/28/2012 3:27 PM 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
--- OUTSIDE RECORDS SUMMARY | 2023-10-30 08:46 | XMS_ITS | Clinical Summary ---
Author Name Unknown Organization [facility] Address [address] [place] [address] Care Team Providers Care Operations Asst Name Role Phone Jody Muller NP Primary Care Provider [phone] Allergies No known active allergies Medications Medication [...] Meningococcal (Menomune??) 08/09/2010 TD,PF 7+ (Tenivac) 07/10/2005 Family History Medical History Relation Comments Family History Negative Brother 1 Family History Negative Father Family History Negative Mother Respiratory Mother wtih asthma Family History Negative Sister 1 Heart Disease No family hx of Lipids No family hx of Relation Status Comments Brother Father Alive Mother Alive Sister Social History Tobacco Use Types Packs/Day Years [...] 03/27/2012 9:22 AM CDT Plan of Treatment Health Maintenance Due Date Last Done Comments ADVANCE CARE PLANNING 1992 ANNUAL REVIEW OF HM ORDERS 1992 ASTHMA CONTROL TEST 1992 LIPID 1992 Pneumococcal Vaccine: Pediatrics (0 to 5 Years) and At-Risk Patients (6 to 64 Years) (1 of 2 - PCV) 1998 HIV SCREENING 2007 HEPATITIS C SCREENING 2010 PHQ-9 01/09/2013 07/11/2012, 102 03/2012, 03/27/2012, Additional history exists PAP 2013 ASTHMA ACTION PLAN 08/28/2013 08/28/2012, 06/27/2011 YEARLY PREVENTIVE VISIT 11/06/2022 11/07/19, 06/02/2021, 03/27/2012, Additional history exists COVID-19 Vaccine ( season) 2023 INFLUENZA VACCINE (#1) 2023 , 07/05/2020, 05/13/2019, Additional history exists DTAP/TDAP/TD IMMUNIZATION (4 - Td or Tdap) 10/15/2028 10/15/2018, 10/13/2014, 07/10/2005, Additional history exists MENINGITIS IMMUNIZATION Aged Out 08/09/2010, 08/09 No longer eligible based on patient's age to complete this topic DEPRESSION ACTION PLAN Completed 03/27/2012 HPV IMMUNIZATION Completed 03/27/2012, , 06/27/2011, Additional history exists HEPATITIS B IMMUNIZATION Completed 016, 05/30/2016, 11/24/2014, Additional history exists IPV IMMUNIZATION Aged Out No longer e ligible based on patient's age to complete this topic RSV MONOCLONAL ANTIBODY Aged Out No l onger eligible based on patient's age to complete this topic Procedures Procedure Name Priority Date/Time Associated Diagnosis Comments ASTHMA ACTION PLAN Routine 08/28/2012 3:27 PM LABORATORY ANIMAL FACILITY SUPERVISOR Intermittent asthma from Last 3 Months or Most Recently Relevant to Health Maintenance Care Teams Operations Asst Relationship Specialty Start Date End Date Jody Muller NP [address] [address] PCP - General 11/26/21
--- OUTSIDE RECORDS SUMMARY | 2023-10-30 08:46 | XMS_ITS | Encounter Summary ---
Author Name Unknown Organization [facility] Address [address] [place] [address] Care Team Providers Care Boiler Shop Mechanic Name Role Phone Rose Mary Perkins APRN, C.N.P., D.N.P. P [facility] Care Provider Reason for Visit * Reason Onset Date Comments SURGERY DATE - ENT 10/22/2023 Encounter Details Date Type Department Care Team (Latest Contact Info) Description 10/22/2023 Clinical Communication Department of Otorhinolaryngology in [place], [place] [address] [phone] Jayden Rowell M.D. [address] [phone] SURGERY DATE - ENT Social History Tobacco Use Types Packs/Day Years Used Date Smoking Tobacco: Light Smoker Cigarettes 0.5 6 Smokeless Tobacco: Never Alcohol Use Standard Drinks/Week Comments No 0 (1 standard drink = 0.6 oz pur e alcohol) [facility] Utilities Answer Date Recorded In the past 12 months has e electric, gas, oil, or water [employer] threatened to shut off services in your [...] How often do you attend chur or temple services? Patient declined 11/06/2021 Do you belong to any clubs o r organizations such as mormon groups, unions, fraternal or athletic groups, or [...] Answer Date Recorded PHQ-2 Score 1 08/14/2023 [facility] of Occupat ional Health - Occupational [...] your living situation today? I have a [facility] place to live 08/22/2023 Education Answer Date [...] PM CDT documented as of this encounter Plan of Treatment Upcoming Encounters Date Type Department Care Team (Late st Contact Info) Description 10/30/2023 3:30 PM CDT Appointment Department of Radiology in [place], [place] [address] [place] [address] Leena Cruz P.A.-C. [address] [place] [address] 10/31/2023 4:00 PM CDT Office Visit Department of Family Medicine, [facility], in [place], [place] [address] [phone] Rose Mary Perkins APRN, C.N.P., D.N.P. [address] [place] [address] documented as of this encounter Visit Diagnoses Not on filedocumented in this encounter Additional Health Concerns Assessment Noted Time PHQ-9 Depression Total Score: 3 08/14/19 24 10:08 AM RADIO TIME SALES SUPERVISOR documented as of this encounter Care Teams Boiler Shop Mechanic Relationship Specialty Start Date End Date Rose Mary Perkins APRN, C.N.P., D.N.P. [address] [place] [address] PCP - General 01/07/23 documented as of this encounter
--- OUTSIDE RECORDS SUMMARY | 2023-10-30 08:46 | XMS_ITS | Encounter Summary ---
Author Name Unknown Organization [facility] Address [address] [place] [address] Care Team Providers Care Truck Car And Bus Cleaner Name Role Phone Rose Mary Perkins APRN, C.N.P., D.N.P. P [facility] Care Provider Reason for Visit * Reason Comments Med Refill Encounter Details Date Type Department Care Team (Late st Contact Info) Description 10/18/2023 Refill Department of Family Medicine, [facility], in [address] [phone] Rose Mary Perkins APRN, C.N.P., D.N.P. [address], [place] [address] Med Refill Social History Tobacco Use Types Packs/Day Years Used Date Smoking Tobacco: Light Smoker Cigarettes 0.5 6 Smokeless Tobacco: Never Alcohol Use Standard Drinks/Week Comments No 0 (1 standard drink = 0.6 oz pur e alcohol) [facility] Utilities Answer Date Recorded In the past 12 months has e [employer], gas, oil, or water [employer] threatened to shut off services in your [...] often do you attend chur ch or uatsdin services? Patient declined 11/06/2021 Do you belong to any clubs o r organizations such as tenriism groups, unions, fraternal or athletic groups, or [...] Answer Date Recorded PHQ-2 Score 1 08/14/2023 [facility] of Occupat ional Health - Occupational [...] your living situation today? I have a [facility] place to live 08/22/2023 Education Answer [...] PM CDT Appointment Department of Radiology in [place], [place] [address] [place] [address] Leena Curz P.AAnna. [address] [place] [address] 10/31/2023 4:00 PM CDT Office Visit Department of Family Medicine, [facility], in [place] [address] [address] [facility] [address] [phone] Rose Mary Perkins APRN, C.N.P., D.N.P. [address] [place] [phone] documented as of this encounter Visit Diagnoses Not on filedocumented in this encounter Additional Health Concerns Assessment Noted Time PHQ-9 Depression Total Score: 3 08/14/19 24 10:08 AM MANUFACTURING PLANT TECHNICIAN documented as of this encounter Care Teams Truck Car And Bus Cleaner Relationship Specialty Start Date End Date Rose Mary Perkins APRN, C.N.P., D.N.P. [address] [place] [address] PCP - General 01/07/23 documented as of this encounter
--- OUTSIDE RECORDS SUMMARY | 2023-10-30 08:46 | XMS_ITS | Encounter Summary ---
Author Name Unknown Organization [facility] Address [address] [place] [address] Care Team Providers Care Boat Wrapper Name Role Phone Rose Mary Perkins APRN, C.N.P., D.N.P. P [facility] Care Provider Reason for Visit * Reason Comments Med Refill Encounter Details Date Type Department Care Team (Late st Contact Info) Description 10/18/2023 Refill Department of Family Medicine, [facility], in [address] [phone] Rose Mary Perkins APRN, C.N.P., D.N.P. [address], [place] [address] Med Refill Social History Tobacco Use Types Packs/Day Years Used Date Smoking Tobacco: Light Smoker Cigarettes 0.5 6 Smokeless Tobacco: Never Alcohol Use Standard Drinks/Week Comments No 0 (1 standard drink = 0.6 oz pur e alcohol) [facility] Utilities Answer Date Recorded In the past 12 months has e [employer], gas, oil, or water [employer] threatened to shut off services in your [...] often do you attend chur ch or latter-day services? Patient declined 11/06/2021 Do you belong to any clubs o r organizations such as yazidism groups, unions, fraternal or athletic groups, or [...] Answer Date Recorded PHQ-2 Score 1 08/14/2023 [facility] of Occupat ional Health - Occupational [...] your living situation today? I have a [facility] place to live 08/22/2023 Education Answer [...] PM CDT documented as of this encounter Miscellaneous Notes * Telephone Encounter - Elaine Akins - 10/22/2023 8:38 AM CDT Called and left the patient a message to call her racehorse trainer documented in this encounter Plan of Treatment Upcoming Encounters Date Type Department Care Team (Late st Contact Info) Description 10/30/2023 3:30 PM CDT Appointment Department of Radiology in [place], [place] [address] [place] [address] Leena Cruz P.A.-C. [address] [phone] 10/31/2023 4:00 PM CDT Office Visit Department of Family Medicine, [facility], in [place], [place] [address] [place] [address] Rose Mary Perkins APRN, C.N.P., D.N.P. [address] [place] [address] documented as of this encounter Visit Diagnoses Not on filedocumented in this encounter Additional Health Concerns Assessment Noted Time PHQ-9 Depression Total Score: 3 08/14/19 24 10:08 AM DIRECTOR [employer] documented as of this encounter Care Teams Boat Wrapper Relationship Specialty Start Date End Date Rose Mary Perkins APRN, C.N.P., D.N.P. [address] [place] [phone] PCP - General 01/07/23 documented as of this encounter
--- OUTSIDE RECORDS SUMMARY | 2023-10-30 08:46 | XMS_ITS | Encounter Summary ---
Author Name Unknown Organization [facility] Address [address] [place] [address] Care Team Providers Care Dimpling Machine Operator Name Role Phone Rose Mary Perkins APRN, C.N.P., D.N.P. P [facility] Care Provider Reason for Referral * Outpatient (Routine) - Authorized Specialty Diagnoses / Procedures Referred By Contac t Referred To Contact Urology Yael Centeno APRN, C.N.P. [address] [address] [facility] Region Referral ID Status Reason Start Date Expiration Date V isits Requested Visits Authorized [id number] Authorized 10/04/2023 04/04/2025 1 1 * Physical Therapy (Routine) - Authorized Specialty Diagnoses / Procedures Referred By Contac t Referred To Contact Physical Therapy Diagnoses Incontinence Urinary Stress And Urge Dysfunction Pelvic Floor Female Yael Centeno APRN, C.N.P. [address] [address] [facility] [address] [place] [address] Phone: [phone] Referral ID Status Reason Start Date Expiration Date Visits Requested Visits Authorized [id number] Authorized Patient Preference 10/04/2023 04/04/2025 1 1 Reason for Visit * Reason Comments Consult Urinary Incontinence Urinary Frequency * Outpatient (Routine) - Closed Specialty Diagnoses / Procedures Referred By Tayler nesbitt Referred To Contact Urology Diagnoses Frequency Urinary Miles-Rose Mary Guidry APRN, C.N.P., Nahomy.N.P. [address] [phone] [facility] Region Referral ID Status Reason Start Date Expiration Date Visits Re quested Visits Authorized [id number] Closed 08/28/2023 02/26/2025 1 1 Encounter Details Date Type Department Care Team (Latest Contact Info) Description 10/04/2023 11:30 AM CDT Comprehensive Visit Department of Urology in [place], [place] [address] [address] Yael Centeno APRN, C.N.P. [address] [address] Incontinence Urinary Stress And Urge (Primary Dx); Frequency Urinary; Dysfunction Pelvic Floor Female Social History Tobacco Use Types Packs/Day Years Used Date Smoking Tobacco: Light Smoker Cigarettes 0.5 6 Smokeless Tobacco: Never Tobacco Cessation:Ready to Q uit: Not Asked; Counseling Given: Not Answered Alcohol Use Standard Drinks/Week Comments No 0 (1 standard drink = 0.6 oz pur e alcohol) [facility] Utilities Answer Date Recorded In the past 12 months has [facility] [employer], gas, oil, or water [employer] threatened to shut off services in your [...] How often do you attend chur or mosque services? Patient declined 11/06/2021 Do you belong to any clubs o r organizations such as protestant groups, unions, fraternal or athletic groups, or [...] Answer Date Recorded PHQ-2 Score 1 08/14/2023 [facility] - Occupational [...] your living situation today? I have a [facility] place to live 08/22/2023 Education Answer [...] PM CDT documented as of this encounter Consult Notes * Yael Centeno APRN, C.N.P. - 10/04/2023 11:30 AM CDT SUBJECTIVE REASON FOR CONSULT Female incontinence HISTORY OF PRESENT ILLNESS Keily is a pleasant 33-year-old female here today for consultation for urinary incontinence. She was seen by primary care and recommended to attend pelvic floor physical therapy, she has not yet been able to attend this as it is difficult for her to find time with her work schedule. She had nocturnal enuresis until age 19. She currently has urinary urgency and frequency and voids every 30 minutes during the day. She has had 1 vaginal delivery and had quite a bit of tearing with this delivery. She states that she performs Kegel exercises but does not feel they are helping. She often has urge incontinence and leaks on the way to the bathroom. She also describes stress incontinence, leaking if she coughs or bends over. She typically drinks 8-10 eight ounce glasses of water, 3-4 cups of coffee. Alcohol causes her to have increased urgency and frequency. She denies any issues with constipation. AMB URO PROLAPSE INTAKE QUESTIONNAIRE SB: How many pregnancies have you had?: 1 How many live births have you had?: 1 How many vaginal deliveries have you had?: 1 Have you had a hysterectomy?: no Are you premenopausal, perimenopausal, or post menopausal?: premenopausal Associated Symptoms hematuria (-) Chemical exposures: toxic chemical exposure (+) (Smoking history) Lower Urinary Symptoms Lower Urinary Sx: hematuria (-) difficulty urinating (-) Obstructive Sx: kidney infections or required hospitalization for kidney failure (-) # of UTI's in past year: None Required catheter: no Incontinence: unintentionally leaks urine (+) leaking occurs during coughing, sneezing or lifting heavy objects (+) experiences a feeling of urgency before leaking (+) The following portions of the patient's history were reviewed and updated as appropriate: allergies, current medications, family history, medical history, social history, surgical history, and problem list. REVIEW OF SYSTEMS Gastrointestinal: - Negative for constipation and diarrhea. Genitourinary: Positive for incontinence, urgency and frequent urination. - Negative for difficulty urinating, pain with urination and blood in urine. Past Medical History: Diagnosis Date Anxiety Generalized Disorder 12/02/2018 Arthritis Rheumatoid (HCC) Asthma NOS 9 yrs old Depression Anxiety Irritable Bowel Syndrome Without Diarrhea 1 year ago Nicotine Dependence Cigarettes 01/05/2020 Sleep Disorder 05/13/2019 Past Surgical History: Procedure Laterality Date SALPINGECTOMY 02/01/2020 BL Family History Problem Relation Name Age of Onset Skin cancer Grandfather Asthma Mother Diana trivedi Asthma Brother Lucius trivedi Learning disorder Brother Lucius trivedi ADD Brother Lucius trivedi Ovarian cancer Maternal Grandmother Katiana martines 70s Osteoporosis Maternal Grandmother Katiana martines Arthritis Maternal Grandmother Katiana martines Ovarian cancer Other maternal great aunt 60s Lung cancer Paternal Grandfather Rio barkley Stroke Paternal Grandmother Sheree barkley Alcohol abuse Father Maurisio trivedi Anxiety disorder Father Maurisio trivedi Depression Father Maurisio trivedi Allergies Allergen Reactions Chlorhexidine Rash Current Outpatient Medications on File Prior to Visit Medication Sig Dispense Refill albuterol 90 mcg/actuation inhaler Inhale 1-2 puffs as needed for wheezing or shortness of breath. 18 g 11 buPROPion (WELLBUTRIN SR) 150 mg 12 hr tablet TAKE 1 TABLET(150 MG) BY MOUTH TWICE DAILY 180 tablet3 citalopram (CeleXA) 20 mg tablet TAKE 1 TABLET BY MOUTH DAILY ALONG WITH A 10MG FOR A TOTAL DOSE OF30MG 90 tablet 3 xatavpodoymf-voozibanjiok-qqbwoavbz (TRI-DEANNA) 0.01-4-0.05 % cream Apply 1 Application topically atbedtime. Apply to affected areas on face. 30 g 1 hydroquinone 4 % cream Apply 1 Application topically 2 (two) times a day. Apply to face for 2 months. 28.35 g 1 hydroxychloroquine (PLAQUENIL) 200 mg tablet Take 200 mg by mouth 2 (two) times a day. ibuprofen (ADVIL,MOTRIN) 600 mg tablet Take 1 tablet by mouth every 6 (six) hours. L.acidoph-L.bulg-B.bif-S.therm (BACID) 1 billion cell- 250 mg per tablet Take 1 tablet by mouth 2 (two) times a day with meals. 180 tablet 3 metroNIDAZOLE (METROCREAM) 0.75 % cream Apply 1 Application topically 2 (two) times a day as needed(rash face). 45 g 3 multivitamin capsule Take 1 capsule by mouth daily. tretinoin (RETIN-A) 0.025 % cream Apply 1 Application topically at bedtime. Apply to face nightly. 45 g 2 No current facility-administered medications on file prior to visit. Social History Tobacco Use Smoking status: Light Smoker Current packs/day: 0.50 Average packs/day: 0.5 packs/day for 6.0 years (3.0 ttl pk-yrs) Types: Cigarettes Smokeless tobacco: Never Vaping Use Vaping status: never used Substance Use Topics Alcohol use: No Drug use: No Reason OBJECTIVE There were no vitals filed for this visit. PHYSICAL EXAM Vitals and nursing note reviewed. General: Well developed, well nourished, well groomed female in no acute distress. Neurological: Alert, cooperative, oriented x3. Appropriate mood and affect. Abdomen: Soft, non-tender, non-distended Extremities: Warm, without edema or ulcerations. DIAGNOSTIC Postvoid residual by bladder scan 0 mL. ASSESSMENT / PLAN 1. Frequency Urinary 2. Incontinence Urinary Stress And Urge 3. Dysfunction Pelvic Floor Female We had an in-depth discussion about her symptoms and we discussed the importance of pelvic floor physical therapy, orders are placed for her to complete this in [place] which is closer to her homeand will be easier for her to attend. We also discussed possibility of medication therapy, she would like to trial this was viral. Prescription for oxybutynin 10 mg XL daily sent to her pharmacy. She understands that this can cause constipation and dry mouth. We will plan to follow-up in 2-3 months, sooner if needed. All questions answered today. - External referral PT (non-[place]) Signed by: Yael Centeno APRN, C.N.P. 10/28/2023 7:59 AM CDT documented in this encounter Plan of Treatment Upcoming Encounters Date Type Department Care Team (Late st Contact Info) Description 10/30/2023 3:30 PM CDT Appointment Department of Radiology in [place], [place] [address] [place] [address] Leena Cruz P.A.-C. [address] [address] 10/31/2023 4:00 PM CDT Office Visit Department of Family Medicine, [facility], in [place] [address] [place] [phone] Rose Mary Perkins APRN, C.N.P., D.N.P. 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 [address] [address] PCP - General 01/07/23 documented as of this encounter
--- OUTSIDE RECORDS SUMMARY | 2023-10-30 08:47 | XMS_ITS | Clinical Summary ---
Author Name Unknown Organization [facility] Address [place], [place] [address] Care Team Providers Care Manager Switch Name Role Phone Cyndee Washington MD Unavailable Pcp, No Primary Care Provider Unavailabl e Allergies Active Allergy Reactions Criticality Noted Date Comments Chlorhexidine Rash 02/12/2020 Medications Medication Sig Dispensed Refills Start Date End Date Status citalopram (CELEXA) 20 mg tablet Take 1.5 tablets by mouth once daily. 0 02/06/2017 Active albuterol HFA 90 mcg/actuation inhaler Inhale 1-2 Puffs by mouth every 4 hours if needed. 05/17/2010 Active FA/mv,Ca,iron,min /lycopene/lut (MULTIVITAL ORAL) Take 1 Tab by mouth once daily. Active buPROPion (WELLBUTRIN SR) 150 mg Sustained-Release tablet Take 150 mg by mouth 2 times daily. 07/24/2020 Active ibuprofen (ADVIL; MOTRIN) 800 mg tabletIndications :Post-operative state Take 1 tablet (800 mg) by mouth three times daily with meals. 40 Tablet 1 04/03/2022 Active citalopram (CELEXA) 10 mg tablet Take 10 mg by mouth once daily. 02/11/2023 Active ibuprofen (ADVIL; MOTRIN) 800 mg tabletIndications :Hallux rigidus, right foot Take 1 Tablet (800 mg) by mouth three times daily with meals. 40 Tablet 1 04/16/2023 Active HYDROcodone-aceta minophen (NORCO) 5-325 mg per tabletIndications :Hallux rigidus, right foot Take 1 tablet by mouth every 4 to 6 hours as needed for pain. Maximum of 10 tablets per 24 hours. Max acetaminophen dose: 4000 mg in 24 hours. 20 Tablet 04/16/2023 Active Surgical ShoeIndications:H allux rigidus, right foot For home use. 1 Each 04/16/2023 Active hydroxychloroquin e (PLAQUENIL) 200 mg tabletIndications :Polyarthritis TAKE 1 TABLET(200 MG) BY MOUTH TWICE DAILY 180 Tablet 1 07/24/2023 Active Active Problems Problem Noted Date Diagnosed Date Polyarthralgia 07/23/2019 39 weeks gestation of 12/28/2018 PROM (premature rupture of membranes) 12/28/2018 Mild preeclampsia 12/28/2018 complication before 12/12/2018 Anxiety 12/02/2018 Diarrhea 04/10/2017 Overview: Colonoscopy 04/2017 normal repeat at age 52 EGD 04/2017 normal , recommend ct Periumbilical abdominal pain 04/10/2017 Incontinence of feces with fecal urgency 017 Recurrent major depressive disorder 10/13/2014 Overview: Overview: Depression Major Recurrent NOS Asthma 09/15/2012 Overview: Overview: Asthma, Unspecified Resolved Problems Problem Noted Date Diagnosed Date Resolved Date Arthritis, rheumatoid 05/20/20182019 Immunizations Name Administration Dates Next Due DTP 03/09/1998, 3,05/12/1993,11/18,1992 HIB HbOC (HibTITER) 07/05/1993,1992,1991 HPV 9 (Gardasil 9) 03/27/2012,06/27/2011, 011 Hepatitis B (Peds) 07/05/1993,1992, 993 Human Papilloma Virus Vaccine 03/27/2012 ,06/27/2011,03/27/2011,05/17 Influenza Virus, Unspecified 05/13/2019, 04/21/2014,04/30/2013,05/05 Influenza, IIV3 (Age >=3 years) 05/05/20 12,03/27/2012,03/27/2011,05/17 Influenza, IIV4 04/30/2022, 1,07/05/2020,05/13,04/30/2018,07/12/2017,05/17/2016 Influenza, IIV4 (=>6mos) MDV 06/06/2015 Influenza,CCIIV4 PRESERV FREE 05/13/2019 Meningococcal Vaccine (Menactra) 08/09/2010 Meningococcal Vaccine (Menomune) 08/09/2010 Oral Polio Vaccine 07/05/1993, 3,1992,05/02 Pneumococcal Conj 20-valent (Prevnar 20) 12/08/2021 Td, Preservative Free (age >= 7 Years) 5 Tdap 10/15/2018 Family History Medical History Relation Name Comments ADD / ADHD Brother Asthma Brother Learning disabilities Brother Alcoholism Father Anxiety disorder Father Depression Father Cancer-ovarian Maternal Grandmother Osteoporosis Maternal Grandmother Asthma Mother Lung cancer Paternal Grandfather Stroke Paternal Grandmother Relation Name Status Comments Brother Father Maternal Grandmother Mother Paternal Grandfather Paternal Grandmother Social History Tobacco Use Types Packs/Day Years Used Date Smoking Tobacco: Some Days Cigarettes Smokeless Tobacco: Never Tobacco Cessation:Ready to Q uit: No; Counseling Given: No Alcohol Use Standard Drinks/Week Comments Yes 0 (1 standard drink = 0.6 oz pur e alcohol) monthly Social Connections Answer Date Recorded Frequency of Communication with Friends and Fami ly 0 06/25/2022 Financial Resource Strain Answer Date R ecorded Difficulty of Paying Living Expenses 3 06/25/2022 Difficulty of Paying Living Expenses Not on file 06/25/2022 Food Insecurity Answer Date Recorded Worried About Running Out of Food in the Last Ye ar 1 06/25/2022 Transportation Needs Answer Date Record ed Lack of Transportation (Medical) 1 06/25/2022 Housing Stability Answer Date Recorded Unable to Pay for Housing in the Last Year 1 06/25/2022 Sex and Gender Information Value Date Recorded Sex Assigned at Not on file Gender Identity Not on file Sexual Orientation Not on file Obstetrics History Para Term AB IAB SAB Ectopic Multiple Livin g Live Births 1 1 1 1 1 Date Outcome GA Total Labor Labor/2nd/3rd Weight Sex Delivery Anes PTL Tawana A1 A5 Name Cl in 12/28 Term 39w 1d 0h 19m 3.54 kg (7 lb 13 oz) F Vag-Vacuu m Epidu ral N Sarah ng 6 8 MAXA, BG AMEENA AY DANIELLA cartagena Complications:None Delivery [facility] Last Filed Vital Signs Vital Sign Reading Time Taken Comments Blood Pressure 95/53 04/16/2023 9:07 AM CDT Pulse 78 04/16/2023 9:00 AM CDT Temperature 36.2 ??C (97.2 ??F) 04/16/2023 8:19 AM CD T Respiratory Rate 16 04/16/2023 9:00 AM CDT Oxygen Saturation 97% 04/16/2023 9:00 AM CDT Inhaled Oxygen Concentration - - Weight 80.2 kg (176 lb 14.4 oz) 04/16/2023 6:17 AM CDT Height 166 cm (5' 5.35) 04/11/2023 11: 25 AM CDT Body Mass Index 29.12 04/11/2023 11:25 AM CDT Plan of Treatment Upcoming Encounters Date Type Department Care Team (Latest Contact Info) Description 10/30/2023 3:30 PM CDT Appointment [facility] [address] [place] [address] 11/14/2023 10:19 AM CDT Hospital Encounter [facility] [address], [place] [address] Jayden Rowell MD [address] [place] [address] 11/14/2023 10:19 AM CDT - 11/14/2023 11:22 AM CDT Surgery [facility] [address] [place] [address] Jayden Rowell MD [address], [place] [address] TONSILLECTOMY-BILAT ERAL 11/14/2023 10:30 AM CDT Office Visit [facility] [address] [place] [address] Cyndee Washington MD [address] [place] [address] Scheduled Procedures Name Priority Associated Diagnoses Date/Ti me TONSILLECTOMY Elective RECURRENT ADENOTONSILLITIS 11/14/2023 10:19 AM CDT Health Maintenance Due Date Last Done Comments Depression screening for age 12+ 07/10/2017 07/10/2016 Pap test for age 21-65 02/24/2022 9 (Completed outside of [facility]) COVID-19 vaccine series (2022- season) 2023 BMI (ht and wt on same day) for age 18+ 11/13/2023 11/12/2022, 10/25/2020, 07/23/2019, Additional history exists Influenza for age 9-49 03/15/2024 , 05/20/2021, 07/05/2020, Additional history exists Tetanus booster 10/15/2028 10/15/2018, 0 07/2014 (Completed outside of [facility]), 07/10/2005 Tdap Completed 10/15/2018, 07/2014 (Completed outside of [facility]) HIV for age 15-65 Completed 12/27/2018 Hepatitis C screening for age 18-79 Completed 12/27/2018 Pneumococcal series for age 6-64 Aged Out 12/08/2021 No longer eligible based on patient's age to complete this topic Medical Devices Implanted Type Area Clinical Documentation Nurse Device Identifier Shelf Expiration Date Model / Serial / Lot Screw Bone 2.5x18mm Mini Headed - [id number] Implanted:Qty: 2 on 04/03/2022 by Charles Price DPM at [facility] Right: Foot [employer] [id number] / / Explanted Type Area Clinical Documentation Nurse Device Identifier Shelf Expiration Date Model / Serial / Lot K-Wire Asnis Micro .[id number] - [id number] Explanted:Qty: 2 on 04/03/2022 by Charles Price DPM at [facility] Right: Foot [employer] [id number] / / Procedures Procedure Name Priority Date/Time Associated Diagnosis Comments EXPOSURE (BBF) ANTI HCV STAT 12/27/2018 8:29 AM CDT EXPOSURE (BBF) RAPID HIV STAT 12/27/2018 8:25 AM CDT from Last 3 Months or Most Recently Relevant to Health Maintenance Results * Patient Source ANTI HCV (12/27/2018 8:29 AM CDT) HEPATITIS C ANTIBODY Non-React emily Non-React emily 12/28/2018 1:20 PM CDT [facility] Comment:Antibodies to HCV no t detected; does not exclude the possibility of exposure to HCV. Blood BLOOD SPECIMEN / Unknown Add On / Unknown 12/27/2018 8:29 AM CDT 12/28/2018 8:30 AM CDT Marsha Hudson BOTTLE CLEANER SEND OUTS [facility] [address] [place] [address], * Patient Source Rapid HIV - Unknown HIV (12/27/2018 8:25 AM CDT) SOURCE RAPID HIV SCREEN Non-Reacti ve Non-Reacti ve 12/28/2018 8:55 AM CDT [facility] Blood BLOOD SPECIMEN / Unknown Add On / Unknown 12/27/2018 8:25 AM CDT 12/28/2018 8:25 AM CDT Marsha Hudson BOTTLE CLEANER SEND OUTS [facility] [address] [place] [address] from Last 3 Months or Most Recently Relevant to Health Maintenance Advance Directives * Full Code (Latest Code Status on File) Date Activated Date Inactivated Comments 04/16/2023 6:01 AM 04/16/2023 11:39 AM Question Answer Comments Code Status Discussion: Reviewed Preferences * Full Code Date Activated Date Inactivated Comments 04/03/2022 5:57 AM 04/03/2022 11:58 AM Question Answer Comments Code Status Discussion: Reviewed Preferences * Full Code Date Activated Date Inactivated Comments 02/01/2020 7:35 AM 02/01/2020 4:10 PM * Full Code Date Activated Date Inactivated Comments 12/27/2018 12:17 PM 12/31/2018 9:00 PM Question Answer Comments Code Status Discussion: Discussed Care Teams Manager Switch Relationship Specialty Start Date End Date Pcp, No . PCP - General 11/12/22 Cyndee Washington MD [address] [place] [address] Rheumatology Rheumatology 10/04/16
--- OUTSIDE RECORDS SUMMARY | 2023-10-30 08:47 | XMS_ITS | Encounter Summary ---
Author Name Unknown Organization [facility] Address [address] [place] [address] Care Team Providers Care Shoe Caser Name Role Phone Rose Mary Perkins APRN, C.N.P., D.N.P. [facility] Care Provider Reason for Visit * Reason Comments Med Refill Encounter Details Date Type Department Care Team (Late st Contact Info) Description 08/14/2023 Refill Department of Family Medicine, [facility], in [address] [address] John Tong M.D. [address] [place] [address] Med Refill Social History Tobacco Use Types Packs/Day Years Used Date Smoking Tobacco: Light Smoker Cigarettes 0.5 6 Smokeless Tobacco: Never Alcohol Use Standard Drinks/Week Comments No 0 (1 standard drink = 0.6 oz pur e alcohol) Humiliation, Afraid, Rape, and Kick questionnair e [...] often do you attend chur ch or jain services? Patient declined 11/06/2021 Do you belong to any clubs o r organizations such as holiness groups, unions, fraternal or athletic groups, or [...] Answer Date Recorded PHQ-2 Score 1 08/14/2023 [facility] [place] [facility] - Occupational Stress [...] to strenuous exercise (like a brisk walk)? 4 days 11/06/2021 On average, how many minutes do you engage in exercise at this level? 60 min 11/06/2021 Hunger Vital Sign Answer Date Recorded Within the past 12 months, y ou worried that your food would run out before you got the money to buy more. Never true 11/07/19 22 Within the past 12 months, t he food you bought just didn't last and you didn't have money to get more. Never true 11/06/2021 PRAPARE - Transportation Answer Date Re corded In the past 12 months, has l ack of transportation kept you from medical appointments or from getting medications? No 10/14 In the past 12 months, has l ack of transportation kept you from meetings, work, or from getting things needed for daily living? No 11/06/2021 Housing Stability Vital Sign Answer Mariusz e Recorded In the last 12 months, was t here a time when you were not able to pay the mortgage or rent on time? Yes 11/06/2021 In the last 12 months, how many places have you lived? 2 11/06/2021 In the last 12 months, was t here a time when you did not have a steady place to sleep or slept in a usp (including now)? No 11/06/2021 Depression Answer Date Recor ded PHQ-9 Total Score (max 27) 3 08/14 Nutrition Answer Date Recorded Nutrition: EVOO Fat Source No 11/06 On average, how many serving s of fruits and vegetables do you eat per day (serving size is equal to 1 cup or approximately the size of a tennis ball)? 4-5 11/06/2021 Dental Answer Date Recorded Dental: Regular Dentist Yes 11/07/19 Employment Answer Date Recorded Employment status Employed and actively working without restrictions 11/06/2021 Education Answer Date Recorded What is the [...] PM CDT Appointment Department of Radiology in [place], [place] [address] [place] [phone] Leena Cruz PGenetA.-Ashlee. [address], [place] [phone] 10/31/2023 4:00 PM CDT Office Visit Department of Family Medicine, [facility], in [place], [place] [address] [place] [phone] Rose Mary Perkins APRN, C.N.P., D.N.P. 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 [address] [facility] [place] [phone] PCP - General 01/07/23 documented as of this encounter
--- OUTSIDE RECORDS SUMMARY | 2023-10-30 08:47 | XMS_ITS | Encounter Summary ---
Author Name Unknown Organization [facility] Address [address] [place] [address] Care Team Providers Care Greenbelt Name Role Phone Sierra Martell APRN, C.N.P., D.N.P. P [facility] Care Provider Reason for Referral * Outpatient (Routine) - Closed Specialty Diagnoses / Procedures Referred By Contac t Referred To Contact Diagnoses Frequency Urinary Procedures URO Uroflow Sierra Martell APRN, C.N.P., D.N.P. [address] [phone] [facility] Region Referral ID Status Reason Start Date Expiration Date Visits Re quested Visits Authorized [id number] Closed 08/28/2023 08/27/2024 1 1 ICK KLEANER OPERATOR * Outpatient (Routine) - Closed Specialty Diagnoses / Procedures Referred By Contac t Referred To Contact Urology Diagnoses Frequency Urinary Sierra Martell APRN, C.N.P., D.N.P. [address] [phone] [facility] Region Referral ID Status Reason Start Date Expiration Date Visits Re quested Visits Authorized [id number] Closed 08/28/2023 02/26/2025 1 1 ICK KLEANER OPERATOR * Outpatient (Routine) - Authorized Specialty Diagnoses / Procedures Referred By Tayler nesbitt Referred To Contact Diagnoses Diarrhea Procedures DX Abdomen Supine and Upright 2 Views Sierra Martell APRN C.N.PGenet, D.N.P. [address] [address] [facility] Region Referral ID Status Reason Start Date Expiration Date V isits Requested Visits Authorized [id number] Authorized 08/28/2023 08/27/2024 1 1 ICK KLEANER OPERATOR Reason for Visit * Reason Comments Other Increased IBS sympto ms and bladder issues such as urgency, incontinence, etc which interfere with ADLs Encounter Details Date Type Department Care Team (Late st Contact Info) Description 08/22/2023 12:00 PM KERRICK KLEANER OPERATOR Comprehensive Visit Department of Family Medicine, [facility], in [place] [address] [place] [address] Sierra Martell APRN, C.N.PGenet, D.N.P. [address] [phone] Frequency Urinary (Primary Dx); Diarrhea Social History Tobacco Use Types Packs/Day Years Used Date Smoking Tobacco: Light Smoker Cigarettes 0.5 6 Smokeless Tobacco: Never Alcohol Use Standard Drinks/Week Comments No 0 (1 standard drink = 0.6 oz pur e alcohol) [facility] Utilities Answer Date Recorded In the past 12 months has [facility] fflap, gas, oil, or water [employer] threatened to shut off services in [...] How often do you attend chur or confucianism services? Patient declined 11/06/2021 Do you belong to any clubs o r organizations such as caodaism groups, unions, fraternal or athletic groups, or [...] Answer Date Recorded PHQ-2 Score 1 08/14/2023 [facility] of Occupat ional Health - Occupational Stress [...] your living situation today? I have a [facility] place to live 08/22/2023 Education Answer [...] PM CDT documented as of this encounter Last Filed Vital Signs Vital Sign Reading Time Taken Comments Blood Pressure 103/67 08/22/2023 12:06 PM KERRICK KLEANER OPERATOR Pulse 84 08/22/2023 12:06 PM KERRICK KLEANER OPERATOR Temperature 35.7 ??C (96.2 ??F) 08/22/2023 1 2:06 PM KERRICK KLEANER OPERATOR Respiratory Rate 24 08/22/2023 12:0 6 PM KERRICK KLEANER OPERATOR Oxygen Saturation - - Inhaled Oxygen Concentration - - Weight 82.5 kg (181 lb 14.1 oz) 024 12:06 PM KERRICK KLEANER OPERATOR Height 167.5 cm (5' 5.95) 08/22/2023 1 2:06 PM KERRICK KLEANER OPERATOR Body Mass Index 29.41 08/22/2023 12:06 PM KERRICK KLEANER OPERATOR documented in this encounter Progress Notes * Sierra Martell APRN, C.N.P., D.N.P. - 08/22/2023 12:00 PM KERRICK KLEANER OPERATOR SUBJECTIVE CHIEF COMPLAINT / REASON FOR VISIT Keily Trivedi is a 33 y.o. female who presents for evaluation of Other (Increased IBS symptoms and bladder issues such as urgency, incontinence, etc which interfere with ADLs). HISTORY OF PRESENT ILLNESS Keily is a very pleasant 33-year-old female who presents for evaluation of what she believes to be irritable bowel symptoms and bladder issues to include urgency, incontinence and interfering with her activities of daily living. Keily reports a history of bladder problems including urinary frequency, incontinence and an overactive bladder. The patient states that her bladder issues worsened after the of her daughter, during which she experienced a difficult delivery that further damaged her bladder. She stated she had to wear an adult diaper for 4 weeks . She reports bladder issues ongoing since high school and at 1 point was seen by urologist. She acknowledges excessive caffeine intake but notes that the problem persist even with reduce caffeine consumption. She was previously told that she would damage muscles on her bladder and was advised to perform regular Kegelexercises. Keily also reports prior diagnose as of irritable bowel syndrome with diarrhea after having had gastritis. She reports several years ago after developing gastritis diarrheal illness continued and she was seen by Gastroenterology who performed upper GI and colonoscopy, during which they suspected celiac disease. Keily reports she sometimes experiences diarrhea/soft stool 3 to 4 times a day with the only occasional solid bowel movements. She is tried fiber supplements but reports gas, bloating and stomach pain as side effects. Patient also mentioned the family history of gallbladder issues,with her mother having had her gallbladder removed and her sister experiencing similar problems. She is tried stool hardnersand Imodium for her bowel issues but they do not provide relief. Patient was not taking Imodium for over a week. Keily states she has resigned herself to just living with bowel and bladder issues but was recently prompted to seek help as affecting her activities of daily living. Keily denies fever, chills, fatigue, headache or any other symptom. OBJECTIVE Vitals: 08/22/23 1206 BP: 103/67 BP Location: Right arm Patient Position: Sitting Cuff Size: Regular Pulse: 84 Resp: 24 Temp: (!) 35.7 ??C TempSrc: Temporal Weight: 82.5 kg Height: 167.5 cm Body mass index is 29.41 kg/m??. PHYSICAL EXAMINATION Constitutional Appearance: Normal appearance. HENT Head: Normocephalic and atraumatic. Cardiovascular Rate and Rhythm: Normal rate and regular rhythm. Pulmonary Effort: Pulmonary effort is normal. Breath sounds: Normal breath sounds. Musculoskeletal General: Normal range of motion. Skin General: Skin is warm and dry. Capillary Refill: Capillary refill takes less than 2 seconds. Neurological General: No focal deficit present. Mental Status: She is alert and oriented to person, place, and time. Psychiatric Mood and Affect: Mood normal. Behavior: Behavior normal. ASSESSMENT / PLAN #1 Frequency Urinary #2 Diarrhea Clinical decision-making: Patient with bladder symptoms since high school and bowel symptoms since . Differentials include IBS, celiac disease, constipation, pelvic floor dysfunction,Lactoseor fructose intolerance -we will do UA UC, check calprotectin, celiac cascade, ferritin, LFTs, and Giardia antigen. Discussed with the patient will await and review test results and adjust treatment plan/pertinent referralsaccordingly. -patient encouraged to incorporate BRAT diet to manage diarrhea/loose stools. All questions were answered and patient voiced understanding and agreement with this plan. iSerra Martell APRN, C.N.P., D.N.P. Addendum: Lab results are normal, we will refer to Urology and do an abdominal x-ray to rule out constipation. Patient also referred to [facility] physical therapy for pelvic floor PT. Brayden Keily -All of the lab results are normal. -I have sent probiotic to pharmacy for you-to help with the good gut health, and hopefully you havetried the brat diet and that as help with resolution of symptoms. -I also recommend scheduling an appointment with the [facility] physical therapy to see Jo Garcia [phone] for pelvic floor training -I entered an order for abdominal x-ray to rule out constipation and referred you to urology. Sierra Martell APRN, C.N.PGenet, D.N.P. ICK KLEANER OPERATOR documented in this encounter Miscellaneous Notes * Addendum Note - Sierra Martell APRN, C.N.PGenet, D.N.P. - 08/22/2023 12:00 PM CSTAddended by: SIERRA MARTELL on: 08/23/2023 08:47 AM Modules accepted: Orders ICK KLEANER OPERATOR * Addendum Note - Sierra Martell APRN, C.N.PGenet, D.N.P. - 08/22/2023 12:00 PM CSTAddended by: SIERRA MARTELL on: 08/28/2023 01:31 PM Modules accepted: Orders ICK KLEANER OPERATOR documented in this encounter Plan of Treatment Upcoming Encounters Date Type Department Care Team (Late st Contact Info) Description 10/30/2023 3:30 PM CDT Appointment Department of Radiology in [place], [place] [address] [place] [address] Leena Cruz P.A.-Ashlee. [address] [place] [address] 10/31/2023 4:00 PM CDT Office Visit Department of Family Medicine, [facility], in [place], [place] [address] [place] [address] Sierra Martell APRN, C.N.P., D.N.P. [address] [place] [address] Scheduled Orders Name Type Priority Associated Diagnoses Order Schedule DX Abdomen Supine and Upright 2 Views Imaging RAD - Routine (most inpatients and all outpatients) Diarrhea Expected: 08/28/2023 (Approximate), Expires: 11/25/2024 URO Uroflow Procedure Routine Frequency Urinary Expected: 08/28/2023 (Approximate), Expires: 11/25/2024 Scheduled Referrals Name Type Priority Associated Diagnoses Orde r Schedule Urology - General - lower urinary symptoms consult (clinic) Outpatient Referral Routine Frequency Urinary Expected: 08/28/2023 (Approximate), Expires: 11/25/2024 documented as of this encounter Results * Giardia Antigen, Feces (08/23/2023 10:40 AM KERRICK KLEANER OPERATOR) Giardia Ag, F Negative Negative 08/26/2023 7:15 PM KERRICK KLEANER OPERATOR DT Comment: ----ADDITIONAL INFORMATION---- Test Performed by Enzyme Immunoassay. Stool (Stool) 08/23/2023 10: 40 AM KERRICK KLEANER OPERATOR 08/24/2023 8:47 AM KERRICK KLEANER OPERATOR Sierra Martell APRN, C.N.P., D .N.P. LAB MICROBIOLOGY - GENERAL ORDERABLES [facility] [address] [place] [address], [facility] DTL [address] [place] [address] * Calprotectin, Feces (08/23/2023 9:50 AM KERRICK KLEANER OPERATOR) Calprotectin, F <50.0 <50.0 (Normal) mcg/g 08/26/2023 6:06 PM KERRICK KLEANER OPERATOR [facility] Stool (Stool) 08/23/2023 9:5 0 AM KERRICK KLEANER OPERATOR 08/26/2023 7:34 AM KERRICK KLEANER OPERATOR Sierra Martell APRN, C.N.P., D .N.P. LAB BODY FLUIDS AND STOOLS ORDERABLES [facility] [address] [place] [address] [facility] [address] [place] [address] * Ferritin (08/22/2023 12:52 PM KERRICK KLEANER OPERATOR) Ferritin, S 42 6 - 175 mcg/L 08/22/2023 6:22 PM KERRICK KLEANER OPERATOR OW Comment: Biotin has been identified by the instructional aide as a potential interfering substance. Higher concentrations of biotin may be found in multivitamins, hair/nail supplements, and workout supplements. If the result does not match clinical observations, repeat testing after patient refrains from the use of supplements for at least 12 hours. Blood (Blood, Venous) 08/22/2023 12:52 PM KERRICK KLEANER OPERATOR 08/22/2023 5:51 PM KERRICK KLEANER OPERATOR Sierra Martell APRN, C.N.P., D .N.P. LAB BLOOD ADD-ON [facility] [address] [place] [address], [facility] OWAT [facility] [place] [address] [place] [address] * Celiac Disease Serology [place] (08/22/2023 12:52 PM KERRICK KLEANER OPERATOR) Immunoglobulin A (IgA), S 209 61 - 356 mg/dL 08/23/2023 8:00 AM KERRICK KLEANER OPERATOR [facility] Celiac Disease Interpretation See Comment: Negative serology. Celiac disease unlikely. However, approximately 10% of patients with celiac disease are seronegative. Also, patients who are already adhering to a gluten-free diet may be seronegative. If celiac disease is highly clinically suspected, consider HLA-DQ typing. 08/23/2023 10:27 PM KERRICK KLEANER OPERATOR [facility] Blood (Blood, Venous) 08/22/2023 12:52 PM KERRICK KLEANER OPERATOR 08/23/2023 7:15 AM KERRICK KLEANER OPERATOR Narrative [facility] - 08/23/2023 10:27 PM KERRICK KLEANER OPERATOR Specimen Information: Specimen ID: [id number] Specimen Type: Blood Specimen Collection Start Date: 08/22/2023 12:52 PM Specimen Received Date: 08/23/2023 ??7:15 AM Specimen ID: [id number] Specimen Type: Blood Specimen Collection Start Date: 08/22/2023 12:52 PM Specimen Received Date: 08/23/2023 ??6:09 AM Sierra Martell APRN, C.N.P., D .N.P. LAB BLOOD ADD-ON [facility] [address] [place] [address] [place], [place] [phone] [place] [address] [address] [place] [facility] [place] [address] * Hepatic Function Panel (08/22/2023 12:52 PM KERRICK KLEANER OPERATOR) Bilirubin, Total, P <0.2 0.0 - 1.2 mg/dL 08/22/2023 6:24 PM KERRICK KLEANER OPERATOR OWAT Bilirubin, Direct, P <0.2 0.0 - 0.3 mg/dL 08/22/2023 6:24 PM KERRICK KLEANER OPERATOR OWAT Aspartate Aminotransferase (AST), P 18 8 - 43 U/L 08/22/2023 6:24 PM KERRICK KLEANER OPERATOR OW[place] Alanine Aminotransferase (ALT), P 15 7 - 45 U/L 08/22/2023 6:24 PM KERRICK KLEANER OPERATOR OW[place] Alkaline Phosphatase, P 57 35 - 104 U/L 08/22/2023 6:24 PM KERRICK KLEANER OPERATOR OW[place] Albumin, P 4.7 3.5 - 5.0 g/dL 08/22/2023 6:24 PM KERRICK KLEANER OPERATOR OW[place] Protein, Total, P 7.2 6.3 - 7.9 g/dL 08/22/2023 6:24 PM KERRICK KLEANER OPERATOR OWAT Blood (Blood, Venous) 08/22/2023 12:52 PM KERRICK KLEANER OPERATOR 08/22/2023 5:51 PM KERRICK KLEANER OPERATOR Keegan Garcia APRNNJoss, D .N.P. LAB BLOOD ADD-ON Performing Organization Address City/[facility]/ZIP Co de Phone Number [facility] [address] [place] [address], [place] OWAT [facility] in [place] [address] [place] [address] * Bacterial Culture, Aerobic + Susceptibility, Urine (08/22/2023 12:47 PM KERRICK KLEANER OPERATOR) Urine Culture No growth after 1 day of incubation. 08/23/2023 12:31 PM KERRICK KLEANER OPERATOR [facility] Urine (Urine, Midstream) 08/22/2023 12:47 PM KERRICK KLEANER OPERATOR 08/22/2023 7:13 PM KERRICK KLEANER OPERATOR Comment:Specimen Source Site : Urine Ashlee Garcia APRN.N.Claudia, D .N.P. LAB MICROBIOLOGY - GENERAL ORDERABLES Performing Organization Address City/[facility] Co de Phone Number [facility] [address] [place] [address], [place] TO [facility] in [place] [address] [place] [address] * Urinalysis with Microscopic if Indicated (08/22/2023 12:47 PM KERRICK KLEANER OPERATOR) Source Urine, Urine, Midstream 08/22/2023 1:30 PM KERRICK KLEANER OPERATOR FB60 Clarity Clear Clear 08/22/2023 1:45 PM KERRICK KLEANER OPERATOR FB60 Color Yellow 08/22/2023 1:45 PM KERRICK KLEANER OPERATOR FB60 Comment: ----REFERENCE VALUE---- Colorless Yellow [place]ah Blood Negative Negative 08/22/2023 1:45 PM KERRICK KLEANER OPERATOR FB60 Nitrite Negative Negative 08/22/2023 1:45 PM KERRICK KLEANER OPERATOR FB60 Leukocyte Esterase Negative Negative 08/22/2023 1:45 PM KERRICK KLEANER OPERATOR FB60 Protein Negative mg/dL 08/22/2023 1:45 PM KERRICK KLEANER OPERATOR FB60 Comment: ----REFERENCE VALUE---- Negative Trace Glucose Negative Negative mg/dL 08/22/2023 1:45 PM KERRICK KLEANER OPERATOR FB60 Ketones, QI(U) Negative Negative mg/dL 08/22/2023 1:45 PM KERRICK KLEANER OPERATOR FB60 Bilirubin Negative Negative 08/22/2023 1:45 PM KERRICK KLEANER OPERATOR FB60 pH 5.5 5.0 - 8.0 08/22/2023 1:45 PM KERRICK KLEANER OPERATOR FB60 Specific Desmet >=1.030 1.001 - 1.035 08/22/2023 1:45 PM KERRICK KLEANER OPERATOR FB60 Urobilinogen 0.2 0.2 - 1.0 mg/dL 08/22/2023 1:45 PM KERRICK KLEANER OPERATOR FB60 Urine (Urine, Midstream) 08/22/2023 12:47 PM KERRICK KLEANER OPERATOR 08/22/2023 1:29 PM KERRICK KLEANER OPERATOR Sierra Martell APRN, C.N.P., D .N.P. LAB URINE ORDERABLES Performing Organization Address City/State/[facility] Co de Phone Number [facility] [address] [place] [address], [facility] FB60 [facility] [place] [address] [place] [address] documented in this encounter Visit Diagnoses Diagnosis Frequency Urinary- Primary Diarrhea Frequency Urinary documented in this encounter Additional Health Concerns Assessment Noted Time PHQ-9 Depression Total Score: 3 08/14/19 24 10:08 AM KERRICK KLEANER OPERATOR documented as of this encounter Care Teams Greenbelt Relationship Specialty Start Date End Date Sierra Martell APRN, C.N.P., D.N.P. [address], [place] [address] PCP - General 01/07/23 documented as of this encounter
--- OUTSIDE RECORDS SUMMARY | 2023-10-30 08:47 | XMS_ITS | Encounter Summary ---
Author Name Unknown Organization [facility] Address [address] [place] [address] Care Team Providers Care Roll Hauler Name Role Phone Rose Mary Perkins APRN, C.N.P., D.N.P. P [place] Care Provider Reason for Visit * Reason Comments Med Refill Encounter Details Date Type Department Care Team (Late st Contact Info) Description 08/14/2023 Refill Department of Family Medicine, [facility], in [address] [phone] Edel Grewal M.D. [address] [place] [address] Med Refill Social History Tobacco [...] How often do you attend chur or adventist services? Patient declined 11/06/2021 Do you belong to any clubs o r organizations such as episcopalian groups, unions, [id number] [employer] or athletic groups, or school groups? No [...] Answer Date Recorded PHQ-2 Score 1 08/14/2023 [facility] of Occupat ional [facility] - Occupational Stress Questionnaire Answer Date Recorded [...] PM CDT Appointment Department of Radiology in [place], [place] [address] [place] [phone] Leena Cruz P.ANickolas [address], [place] [phone] 10/31/2023 4:00 PM CDT Office Visit Department of Family Medicine, [facility], in [place] [address] [place] [address] Rose Mary Perkins APRN, C.N.P., D.N.P. [address] [place] [phone] documented as of this encounter Visit Diagnoses Diagnosis Anxiety Generalized Disorder Depressed Libido documented in this encounter Additional Health Concerns Assessment Noted Time PHQ-9 Depression Total Score: 3 08/14/19 24 10:08 AM [employer]OR [employer] documented as of this encounter Care Teams Roll Hauler Relationship Specialty Start Date End Date Rose Mary Perkins APRN, C.N.P., D.N.P. [address] [phone] PCP - General 01/07/23 documented as of this encounter
--- OUTSIDE RECORDS SUMMARY | 2023-10-30 08:47 | XMS_ITS | Encounter Summary ---
Author Name Unknown Organization [facility] Address [address] [place] [address] Care Team Providers Care Marine Reporter Name Role Phone Rose Mary Perkins APRN, C.N.P., D.N.P. P [facility] Care Provider Reason for Visit * Reason Comments Med Refill Encounter Details Date Type Department Care Team (Late st Contact Info) Description 08/14/2023 Refill Department of Family Medicine, [facility], in [address] [phone] Edel Grewal M.D. [address] [place] [address] Med Refill Social History Tobacco [...] How often do you attend chur or gnosticist services? Patient declined 11/06/2021 Do you belong to any clubs o r organizations such as oriental orthodox groups, unions, [employer]usion [employer] or athletic groups, or school groups? No [...] Answer Date Recorded PHQ-2 Score 1 08/14/2023 [facility] of Occupat ional [place] - Occupational Stress Questionnaire Answer Date Recorded [...] place to sleep or slept in a residential (including now)? No 11/06/2021 Depression Answer Date [...] PM CDT Appointment Department of Radiology in [place], [place] [address] [place] [phone] Leena Cruz P.ANickolas [address], [place] [phone] 10/31/2023 4:00 PM CDT Office Visit Department of Family Medicine, [facility], in [place] [address] [facility] [place] [address] Rose Mary Perkins APRN, C.N.P., D.N.P. [address] [place] [phone] documented as of this encounter Visit Diagnoses Diagnosis Depression Major Recurrent (HCC) documented in this encounter Additional Health Concerns Assessment Noted Time PHQ-9 Depression Total Score: 3 08/14/19 24 10:08 AM SHOP MANAGER documented as of this encounter Care Teams Marine Reporter Relationship Specialty Start Date End Date Rose Mary Perkins APRN, C.N.P., D.N.P. [address] [place] [phone] PCP - General 01/07/23 documented as of this encounter
--- OUTSIDE RECORDS SUMMARY | 2023-10-30 08:47 | XMS_ITS | Encounter Summary ---
Author Name Unknown Organization [facility] Address [address] [place] [address] Care Team Providers Care Publication Distributor Name Role Phone Rose Mary Perkins APRN, C.N.P., D.N.P. P [facility] Care Provider Reason for Visit * Reason Comments Med Refill Encounter Details Date Type Department Care Team (Late st Contact Info) Description 08/07/2023 Refill Department of Family Medicine, [facility], in [place], [place] [address] [phone] Edel Grewal M.D. [address] [phone] Med Refill Social History Tobacco Use [...] How often do you attend chur or uatsdin services? Patient declined 11/06/2021 Do you belong to any clubs o r organizations such as anabaptist groups, unions, fraternal or athletic groups, or [...] 11/06/2021 PHQ-2 Answer Date Recorded PHQ-2 Score 2 04/12/2023 [facility] Questionnaire Answer Date [...] place to sleep or slept in a [place] health care facility (including now)? No 11/06/2021 Depression Answer Date Recor ded PHQ-9 Total Score (max 27) 11 04/12 Nutrition Answer Date Recorded Nutrition: EVOO Fat [...] PM CDT Appointment Department of Radiology in [place], [place] [address] [place] [address] Leena Cruz P.A.-C. [address], [place] [phone] 10/31/2023 4:00 PM CDT Office Visit Department of Family Medicine, [facility], in [place] [address] [place] [address] Rose Mary Perkins APRN, C.N.P., D.N.P. [address], [place] [phone] documented as of this encounter Visit Diagnoses Not on filedocumented in this encounter Additional Health Concerns Assessment Noted Time PHQ-9 Depression Total Score: 11 023 3:54 PM CDT documented as of this encounter Care Teams Publication Distributor Relationship Specialty Start Date End Date Rose Mary Perkins APRN, C.N.P., D.N.P. [address] [place] [phone] PCP - General 01/07/23 documented as of this encounter
--- OUTSIDE RECORDS SUMMARY | 2023-10-30 08:47 | XMS_ITS | Encounter Summary ---
Author Name Unknown Organization [facility] Address [address] [place] [address] Care Team Providers Care Telehealth Nurse Educator Name Role Phone Rose Mary Perkins APRN, C.N.P., D.N.P. P [facility] Care Provider Encounter Details Date Type Department Care Team (Late st Contact Info) Description 08/22/2023 12:37 PM [facility] Hospital Encounter Department of Laboratory Medicine in [address] [phone] Rose Mary Perkins APRN, C.N.P., D.N.P. [address] [place] [address] Frequency Urinary Discharge Disposition: Home or Self Care Social History Tobacco Use Types Packs/Day Years Used Date Smoking Tobacco: Light Smoker Cigarettes 0.5 6 Smokeless Tobacco: Never Alcohol Use Standard Drinks/Week Comments No 0 (1 standard drink = 0.6 oz pur e alcohol) [facility] Utilities Answer Date Recorded In the past 12 months has e [employer], gas, oil, or water [employer] threatened to shut off services in your [...] How often do you attend chur or jewish services? Patient declined 11/06/2021 Do you belong to any clubs o r organizations such as religious groups, unions, fraternal or athletic groups, or [...] Answer Date Recorded PHQ-2 Score 1 08/14/2023 [facility] Occupat ional Health - [...] your living situation today? I have a [facility] place to live 08/22/2023 Education Answer [...] by mouth every 6 (six) hours. 02/01/2020 L.acidoph-L.bulg-B.bif -S.therm (BACID) 1 billion cell- 250 mg [...] PM CDT Appointment Department of Radiology in [place], [place] [address] [place] [address] Leena Cruz P.A.-C. [address] [place] [address] 10/31/2023 4:00 PM CDT Office Visit Department of Family Medicine, [facility], in [place], [place] [address] [place] [address] Rose Mary Perkins APRN, C.N.P., D.N.P. [address] [phone] documented as of this encounter Procedures Procedure Name Priority Date/Time Associated Diagnosis Comments GIARDIA ANTIGEN, F Routine 08/23/2023 10 :40 AM SPIN TABLE OPERATOR Frequency Urinary CALPROTECTIN, F Routine 08/23/2023 9:50 AM SPIN TABLE OPERATOR Frequency Urinary documented in this encounter Results * Giardia Antigen, Feces (08/23/2023 10:40 AM SPIN TABLE OPERATOR) Giardia Ag, F Negative Negative 08/26/2023 7:15 PM SPIN TABLE OPERATOR DT Comment: ----ADDITIONAL INFORMATION---- Test Performed by Enzyme Immunoassay. Stool (Stool) 08/23/2023 10: 40 AM SPIN TABLE OPERATOR 08/24/2023 8:47 AM SPIN TABLE OPERATOR Rose Mary Perkins APRN, C.N.P., D .N.P. LAB MICROBIOLOGY - GENERAL ORDERABLES [facility] [address] [place] [address], [facility] [address] [place] [address] * Calprotectin, Feces (08/23/2023 9:50 AM SPIN TABLE OPERATOR) Calprotectin, F <50.0 <50.0 (Normal) mcg/g 08/26/2023 6:06 PM SPIN TABLE OPERATOR [facility] Stool (Stool) 08/23/2023 9:5 0 AM SPIN TABLE OPERATOR 08/26/2023 7:34 AM SPIN TABLE OPERATOR Rose Mary Perkins APRN, C.N.P., D .N.P. LAB BODY FLUIDS AND STOOLS ORDERABLES [facility] [address] [place] [address] [facility] [address] [place] [address] documented in this encounter Visit Diagnoses Diagnosis Frequency Urinary documented in this encounter Additional Health Concerns Assessment Noted Time PHQ-9 Depression Total Score: 3 08/14/19 24 10:08 AM SPIN TABLE OPERATOR documented as of this encounter Care Teams Telehealth Nurse Educator Relationship Specialty Start Date End Date Rose Mary Perkins APRN, C.N.Wes., D.N.P. [address] [phone] PCP - General 01/07/23 documented as of this encounter
--- OUTSIDE RECORDS SUMMARY | 2023-10-30 08:47 | XMS_ITS | Encounter Summary ---
Author Name Unknown Organization [facility] Address [address] [place] [address] Care Team Providers Care Cottage Parent Name Role Phone Rose Mary Perkins APRN, C.N.P., D.N.P. P [facility] Care Provider Reason for Visit * Reason Comments Med Refill Encounter Details Date Type Department Care Team (Late st Contact Info) Description 08/14/2023 Refill Department of Family Medicine, [facility], in [place], [place] [address] [phone] Malou Medeiros APRN, C.N.P. [address] [phone] Med Refill Social History Tobacco [...] How often do you attend chur or buddhist services? Patient declined 11/06/2021 Do you belong to any clubs o r organizations such as orthodoxy groups, unions, fraternal or athletic groups, or [...] Answer Date Recorded PHQ-2 Score 1 08/14/2023 [facility] - Occupational Stress Questionnaire Answer Date Recorded [...] place to sleep or slept in a fpc (including now)? No 11/06/2021 Depression Answer Date [...] PM CDT Appointment Department of Radiology in [place], [place] [address] [place] [phone] Leena Cruz P.A.-C. [address], [place] [phone] 10/31/2023 4:00 PM CDT Office Visit Department of Family Medicine, [facility], in [place] [address] [place] [address] Rose Mary Perkins APRN, C.N.PGenet, D.N.P. [address], [place] [phone] documented as of this encounter Visit Diagnoses Diagnosis Sun Damaged Skin documented in this encounter Additional Health Concerns Assessment Noted Time PHQ-9 Depression Total Score: 3 08/14/19 24 10:08 AM ECONOMETRICS PROFESSOR documented as of this encounter Care Teams Cottage Parent Relationship Specialty Start Date End Date Rose Mary Perkins APRN, C.N.P., D.N.P. [address], [place] [phone] PCP - General 01/07/23 documented as of this encounter
--- OUTSIDE RECORDS SUMMARY | 2023-10-30 08:47 | XMS_ITS | Encounter Summary ---
Author Name Unknown Organization [facility] Address [address] [place] [address] Care Team Providers Care Green Building Energy Engineer Name Role Phone Rose Mary Perkins APRN, C.N.P., D.N.P. P [facility] Care Provider Encounter Details Date Type Department Care Team (Late st Contact Info) Description 08/22/2023 12:37 PM [facility] Hospital Encounter Department of Laboratory Medicine in [address] [phone] Rose Mary Perkins APRN, C.N.P., D.N.P. [address] [address] Frequency Urinary Discharge Disposition: Home or Self Care Social History Tobacco Use Types Packs/Day Years Used Date Smoking Tobacco: Light Smoker Cigarettes 0.5 6 Smokeless Tobacco: Never Alcohol Use Standard Drinks/Week Comments No 0 (1 standard drink = 0.6 oz pur e alcohol) [facility] Utilities Answer Date Recorded In the past 12 months has e [employer]), gas, oil, or water [employer] threatened to shut off services in your [...] How often do you attend chur or muslim services? Patient declined 11/06/2021 Do you belong to any clubs o r organizations such as nondenominational groups, unions, fraternal or athletic groups, or [...] Answer Date Recorded PHQ-2 Score 1 08/14/2023 [facility] of Occupat ional Health - Occupational [...] your living situation today? I have a [facility] place to live 08/22/2023 Education Answer [...] PM CDT Appointment Department of Radiology in [place], [place] [address] [place] [phone] Leena Cruz P.A.-C. [address] [place] [phone] 10/31/2023 4:00 PM CDT Office Visit Department of Family Medicine, [facility], in [place], [place] [address] [place] [phone] Rose Mary Perkins APRN, C.N.P., D.N.P. [address] [place] [phone] documented as of this encounter Procedures Procedure Name Priority Date/Time Associated Diagnosis Comments HEPATIC FUNCTION PANEL, S Routine 08/22/2023 12:52 PM [employer] Frequency Urinary CELIAC DISEASE SEROLOGY CASCADE, S Routine 08/22/2023 12:52 PM [employer] Frequency Urinary TISSUE TRANSGLUTAMINASE (TTG) AB, IGA, S Routine 08/22/2023 12:52 PM [employer] FERRITIN, S Routine 08/22/2023 12:52 PM [employer] Frequency Urinary documented in this encounter Results * tTG (Tissue Transglutaminase), Antibody, IgA (08/22/2023 12:52 PM [employer]) Tissue Transglutaminase Ab, IgA, S 2.0 <4.0 (Negative ) U/mL 08/23/2023 11:37 AM SERGEANT OF OFFICERS [facility] Blood 08/22/2023 12:5 2 PM [employer] 08/23/2023 8:08 AM [employer]ICERS Rose Mary Perknis APRN, C.N.P., D .N.P. LAB BLOOD ADD-ON [facility] [address] [place] [address] [facility] [address] [place] [address] * Ferritin (08/22/2023 12:52 PM [employer]) Ferritin, S 42 6 - 175 mcg/L 08/22/2023 6:22 PM SERGEANT OF OFFICERS [facility] Comment: Biotin has been identified by the benzol still operator as a potential interfering substance. Higher concentrations of biotin may be found in multivitamins, hair/nail supplements, and workout supplements. If the result does not match clinical observations, repeat testing after patient refrains from the use of supplements for at least 12 hours. Blood (Blood, Venous) 08/22/2023 12:52 PM [employer] 08/22/2023 5:51 PM [employer]GE[employer]ICERS Ashlee Garcia APRN.N.P., D .N.P. LAB BLOOD ADD-ON [facility] [address] [place] [address], [facility] OWAT [facility] [place] [address] [place] [address] * Celiac Disease Serology [place] (08/22/2023 12:52 PM SERGE[employer] OFFICERS) [facility] Immunoglobulin A (IgA), S 209 61 - 356 mg/dL 08/23/2023 8:00 AM [facility] Celiac Disease Interpretation See Comment: Negative serology. Celiac disease unlikely. However, approximately 10% of patients with celiac disease are seronegative. Also, patients who are already adhering to a gluten-free diet may be seronegative. If celiac disease is highly clinically suspected, consider HLA-DQ typing. 08/23/2023 10:27 PM SERGEANT OF OFFICERS [facility] Blood (Blood, Venous) 08/22/2023 12:52 PM [employer]ICERS 08/23/2023 7:15 AM SERGEANT OF OFFICERS Narrative [facility] - 08/23/2023 10:27 PM [employer]GE[employer] OFFICERS Specimen Information: Specimen ID: [id number] Specimen Type: Blood Specimen Collection Start Date: 08/22/2023 12:52 PM Specimen Received Date: 08/23/2023 ??7:15 AM Specimen ID: [id number] Specimen Type: Blood Specimen Collection Start Date: 08/22/2023 12:52 PM Specimen Received Date: 08/23/2023 ??6:09 AM Rose Mary Perkins APRN C.N.P., D .N.P. LAB BLOOD ADD-ON [facility] [address] [place] [address] [facility] [address] [place] [address] [facility] [address] [place] [address] [place] [address] * Hepatic Function Panel (08/22/2023 12:52 PM [employer]) Bilirubin, Total, P <0.2 0.0 - 1.2 mg/dL 08/22/2023 6:24 PM [employer] OWAT Bilirubin, Direct, P <0.2 0.0 - 0.3 mg/dL 08/22/2023 6:24 PM [employer] OWAT Aspartate Aminotransferase (AST), P 18 8 - 43 U/L 08/22/2023 6:24 PM [employer] OWAT Alanine Aminotransferase (ALT), P 15 7 - 45 U/L 08/22/2023 6:24 PM [employer] OWAT Alkaline Phosphatase, P 57 35 - 104 U/L 08/22/2023 6:24 PM [employer] OWAT Albumin, P 4.7 3.5 - 5.0 g/dL 08/22/2023 6:24 PM [employer] OWAT Protein, Total, P 7.2 6.3 - 7.9 g/dL 08/22/2023 6:24 PM [employer] OWAT Blood (Blood, Venous) 08/22/2023 12:52 PM [employer]ICERS 08/22/2023 5:51 PM [employer]GE[employer]ICERS Rose Mary Perkins APRN, C.N.P., D .N.P. LAB BLOOD ADD-ON [facility] [address] [place] [address], [place] OWAT [facility] [place] [address] [place] [address] documented in this encounter Visit Diagnoses Diagnosis Frequency Urinary documented in this encounter Additional Health Concerns Assessment Noted Time PHQ-9 Depression Total Score: 3 08/14/19 24 10:08 AM SERGEANT [employer]ICERS documented as of this encounter Care Teams Green Building Energy Engineer Relationship Specialty Start Date End Date Delroy-Rose Mary Guidry APRN, C.N.P., D.N.P. [address] [place] [phone] PCP - General 01/07/23 documented as of this encounter
--- OUTSIDE RECORDS SUMMARY | 2023-10-30 08:47 | XMS_ITS | Encounter Summary ---
Author Name Unknown Organization [facility] Address [address] [place] [address] Care Team Providers Care Center Medical And Lab Director Name Role Phone Rose Mary Perkins APRN, C.N.P., D.N.P. P [facility] Care Provider Reason for Visit * Reason Comments Med Refill Encounter Details Date Type Department Care Team (Late st Contact Info) Description 08/14/2023 Refill Department of Family Medicine, [facility], in [place] [address] [place] [phone] Edel Grewal M.D. [address], [place] [address] Med Refill Social History Tobacco Use Types Packs/Day Years Used Date Smoking Tobacco: Light Smoker Cigarettes 0.5 6 Smokeless Tobacco: Never Alcohol Use Standard Drinks/Week Comments No 0 (1 standard drink = 0.6 oz pur e alcohol) [facility] Utilities Answer Date Recorded In the past 12 months has [facility] [employer], gas, oil, or water [employer] threatened to shut off services in your [...] often do you attend chur ch or bahai services? Patient declined 11/06/2021 Do you belong to any clubs o r organizations such as tenriism groups, unions, [employer] or athletic groups, or school groups? No [...] Answer Date Recorded PHQ-2 Score 1 08/14/2023 [facility] of Occupat ional Health - Occupational Stress [...] your living situation today? I have a [facility] place to live 08/22/2023 Education Answer [...] PM CDT Appointment Department of Radiology in [place], [place] [address] [place] [address] Leena Cruz P.A.-C. [address], [place] [phone] 10/31/2023 4:00 PM CDT Office Visit Department of Family Medicine, [facility], in [place], [place] [address] [place] [phone] Rose Mary Perkins APRN, C.N.P., D.N.P. [address] [place] [phone] documented as of this encounter Visit Diagnoses Diagnosis Depression Major Recurrent (HCC) Anxiety Generalized Disorder Depressed Libido documented in this encounter Additional Health Concerns Assessment Noted Time PHQ-9 Depression Total Score: 3 08/14/19 24 10:08 AM SUPPLIER DEVELOPMENT MANAGER documented as of this encounter Care Teams Center Medical And Lab Director Relationship Specialty Start Date End Date Rose Mary Perkins APRN, C.N.P., D.N.P. [address], [place] [address] PCP - General 01/07/23 documented as of this encounter
== END 2023-10-30 08:44 | disposition home or self-care (01) ==
LOC: FRMREF 08:44
PROVIDERS: PCP Nurse Practitioner Family; Visit Provider Obstetrics & Gynecology
DX: R35.0 Frequency of micturition (principal)
CPT/HCPCS: 87086

== ENCOUNTER 2024-06-18 23:47 | Emergency (ER) | payer MEDICAID, SELFPAY ==
[2024-06-19 00:02] VITALS: BP 154/106; PULSE 93; RESP 16; TEMP 37.4; O2SAT 98
--- NOTE | 2024-06-19 00:10 | ED_ITS ---
History of Present Illness General Chief Complaint: Epistaxis/Nosebleed Stated Complaint: Bleeding post septoplasty Time Seen by Provider: 06/19/24 00:01 History of Present Illness HPI Narrative: Patient is a 34-year-old woman with history of rheumatoid arthritis who comes in today after having a septoplasty this morning with minor epistaxis. She has had some minor bleeding primary from the right nostril. She has had some postnasal drip blood as well. She has had no difficulty with her airway. She has had no fevers no chills no night sweats. She is extremely anxious. She is been pinching her nose with no affect. She is not on any anticoagulation or aspirin. She has had no fevers no chills no night sweats he has otherwise been feeling fine. Related Data Home Medications ?Medication ?Instructions ?Recorded ?Confirmed bupropion HCl 150 mg tablet,12 hr 150 mg PO BID 01/24/23 11/21/23 sustained-release citalopram 10 mg tablet 40 mg PO DAILY 01/24/23 11/21/23 hydroxychloroquine 200 mg tablet 200 mg PO BID 01/24/23 11/21/23 Previous Rx's ?Medication ?Instructions ?Recorded tolterodine 4 mg capsule,extended 4 mg PO Q24H #90 caps 12/31/23 release 24 hr Allergies Allergy/AdvReac Type Severity Reaction Status Date / Time chlorhexidine Allergy Mild Rash Verified 11/21/23 10:22 Review of Systems Status of ROS: Reports: 10 or more systems reviewed and unremarkable except as noted in History and below PFSH [facility] Surgical History History of bilateral salpingectomy ?Z90.79 - Acquired absence of other genital organ(s) (ICD-10) Social History Smoking Status: Never smoker Second hand tobacco smoke exposure: No How often do you have a drink containing alcohol: never How often do you have six or more drinks on one occasion: Never AUDIT-C Alcohol total score: 0 Non-prescribed substance use: denies use Exam Narrative: Exam Narrative: EXAM GENERAL: Patient appears comfortable and well. EYES: No scleral icterus.\ Nasal exam shows epistaxis from the left nostril with typical postoperative septoplasty changes. THYROID: no thyroid nodules or thyromegaly. LYMPH: No supraclavicular or cervical lymphadenopathy. SKIN: Visible skin seen during exam normal or with benign process only. EXT: No dependent lower extremity pedal edema. HEART: Regular rate and rhythm with no murmurs, rubs, or gallops. LUNGS: Clear to auscultation bilaterally with no crackles or wheezes. ABD: Soft, non tender, non distended. PSYCH: Good eye contact, speech is not pressured. Const: Vital Signs, click to edit/add: Vital Signs - 24 hr 06/19/24 00:02 Temperature 99.3 F Pulse Rate [Pulse Oximeter] 93 Respiratory Rate 16 Blood Pressure [Ri t Upper Arm] 154/106 H Pulse Oximetry 98 Oxygen Delivery Me thod Room Air Course Course ED Course: After explaining the risks and benefits I did successfully fact the anterior aspect of the left nostril with Afrin treated cotton balls. We have achieved hemostasis at this point. Vital Signs Vital signs: Initial Vital Signs Temperature 99.3 F 06/19/24 00:02 Temperature Source Temporal Artery Scan 06/19/24 00:02 Pulse Rate 93 06/19/24 00:02 Respiratory Rate 16 06/19/24 00:02 Blood Pressure 154/106 H 06/19/24 00:02 Blood Pressure Mean 122 H 06/19/24 00:02 Blood Pressure Position Sitting 06/19/24 00:02 Pulse Oximetry 98 06/19/24 00:02 Oxygen Delivery Method Room Air 06/19/24 00:02 Vital Signs Temperature 99.3 F 06/19/24 00:02 Pulse Rate 93 06/19/24 00:02 Respiratory Rate 16 06/19/24 00:02 Blood Pressure 154/106 H 06/19/24 00:02 Pulse Oximetry 98 06/19/24 00:02 Oxygen Delivery Method Room Air 06/19/24 00:02 Temperature 99.3 F 06/19/24 00:02 Pulse Rate 93 06/19/24 00:02 Respiratory Rate 16 06/19/24 00:02 Blood Pressure 154/106 H 06/19/24 00:02 Pulse Oximetry 98 06/19/24 00:02 Oxygen Delivery Method Room Air 06/19/24 00:02 MDM - Epistaxis MDM Narrative Medical decision making narrative: Patient presents same-day following septoplasty with epistaxis. I did successfully pack her left nostril with Afrin cotton balls. I instructed on wound a care at home and discharge her to home. She will keep her outpatient follow-up with her primary physician and her surgeon and will follow-up with us on a p.r.n. basis. Discharge Plan Discharge Clinical Impression: Epistaxis Patient Disposition: Home, Self-Care Condition: Stable Instructions: Nosebleed (ED) Additional Instructions: Continue current care as discussed. Continue current medications. Continue outpatient follow-up as previous. Activity Level: No Restrictions Discharge Diet: Regular Prescriptions: No Action bupropion HCl 150 mg tablet sustained-release 12 hr 150 mg PO BID citalopram 10 mg tablet 40 mg PO DAILY hydroxychloroquine 200 mg tablet 200 mg PO BID tolterodine 4 mg capsule,extended release 24hr 4 mg PO Q24H Qty: 90 3RF Follow Up/Referrals: Yael Centeno, FALGUNI [Primary Care Provider] - Stand Alone Forms: [employer] Info Instructions
--- OUTSIDE RECORDS SUMMARY | 2024-06-19 00:23 | XMS_ITS | Clinical Summary ---
Author Organization [place] Address [address] [place] [address] Care Team Providers Care Statistics Teacher Name Role Phone Jody Muller NP Primary Care Provider [phone] Allergies No known active allergies Medications levonorgestrel- ethinyl estradiol (AVIANE,ALESSE, LESSINA) 0.1-20 MG-MCG per tabletIndicatio ns:Irregular periods Take 1 tablet by mouth daily. 3 Package 0 2 Active albuterol (PROVENTIL HFA: VENTOLIN HFA) 108 (90 BASE) MCG/ACT inhalerIndicati ons:Intermitten t asthma Inhale 2 puffs into the lungs every 6 hours as needed for shortness of breath / dyspnea. 1 Inhaler 3 2 Active citalopram (CELEXA) 20 MG tabletIndicatio ns:Mild major depression (H) Take 1.5 tablets by mouth daily. This refill only pt due for follow up 45 tablet 0 3 Active Active Problems Problem Noted Date Diagnosed Date Anxiety 05/11/2012 Hyperlipidemia LDL goal <160 03/27/2012 Irregular periods 06/27/2011 Mild major depression 06/27/2011 Overview (03/27/2012): [facility] Intermittent asthma 06/27/2011 Smoker Immunizations Name Administration Dates Next Due HPV 03/27/2012,06/27/2011,03/27/2011 10/27/2011 Influenza (IIV3) PF 03/27/2012,03/27/2011,2009 Mantoux Tuberculin Skin Test 08/20/2011 Meningococcal (Menomune ) 08/09/2010 TD,PF 7+ (Tenivac) 07/10/2005 Family History [...] School Help Needed Not on file 04/28 Comments No Sex and Gender Information Value Date Recorded Sex Assigned at Not on file Legal Sex Female 4:31 AM [facility] Gender Identity Not on file Sexual Orientation Not on file Last Filed Vital Signs Vital Sign Reading Time Taken Comments Blood Pressure 116/74 11/26/2021 5:10 PM CDT Pulse 90 11/26/2021 5:10 PM CDT Temperature 36.9 C (98.4 F) 11/26/2021 11:50 AM CDT Respiratory Rate 18 11/26/2021 4:00 PM CDT [...] HEPATITIS C SCREENING 2010 PHQ-9 01/09/2013 07/11/2012, 10/2 03/2012, 03/27/2012, Additional history exists PAP 2013 ASTHMA ACTION PLAN 08/28/2013 08/28/2012, 06/27/2011 YEARLY PREVENTIVE VISIT 11/06/2022 11/07/19 22, 06/02/2021, 03/27/2012, Additional history exists COVID-19 Vaccine (2023- season) 2024 INFLUENZA VACCINE (#1) 2024 , 07/05/2020, 05/13/2019, Additional history exists DTAP/TDAP/TD IMMUNIZATION (4 - Td or Tdap) 10/15/2028 10/15/2018, 10/13/2014, 07/10/2005, Additional history exists RSV VACCINE (1 - 1-dose 75+ series) 2067 MENINGITIS IMMUNIZATION Aged Out 08/09/2010, 08/09 No longer eligible based on patient's age to complete this topic DEPRESSION ACTION PLAN Completed 03/27/2012 HPV IMMUNIZATION Completed 03/27/2012, , 06/27/2011, Additional history exists HEPATITIS B IMMUNIZATION Completed 016, 05/30/2016, 11/24/2014, Additional history exists RSV MONOCLONAL ANTIBODY Aged Out No l onger eligible based on patient's age to complete this topic Procedures Procedure Name Priority Date/Time Associated Diagnosis Comments ASTHMA ACTION PLAN Routine 08/28/2012 3:27 PM [facility] Intermittent asthma from Last 3 Months or Most Recently Relevant to Health Maintenance Insurance [facility] Care Teams Statistics Teacher Relationship Specialty Start Date End Date Jody Muller NP [address] [address] [facility] - General 11/26/21
--- OUTSIDE RECORDS SUMMARY | 2024-06-19 00:23 | XMS_ITS | Clinical Summary ---
Author Organization [facility] Address [address] [place] [address] Care Team Providers Care Drum Maker Name Role Phone Rose Mary Perkins APRN, C.N.P., D.N.P. P [facility] Care Provider Source Comments Patient records contain information from all sites at [facility]. For routine questions regarding patient records, call [phone] during business hours, M-F 8:00 AM - 5:00 PM Central Time. Record requests for emergency care only can be directed to [phone] at any time.[facility] Allergies Active Allergy Reactions Criticality Noted Date Comments Chlorhexidine Rash 02/12/2020 Medications * This document contains information received from the source organization and may not represent a complete record from that organization. hydroxychloroqui ne (PLAQUENIL) 200 mg tablet Take 200 mg by mouth 2 (two) times a day. 8 Active multivitamin capsule Take 1 capsule by mouth daily. Active albuterol 90 mcg/actuation inhalerIndicatio ns:Asthma Mild Intermittent (HCC) Inhale 1-2 puffs as needed for wheezing or shortness of breath. 18 g 11 2 Active citalopram (CeleXA) 20 mg tabletIndication s:Major Depressive Disorder, Recurrent, Unspecified (HCC) TAKE 1 TABLET BY MOUTH DAILY ALONG WITH A 10MG FOR A TOTAL DOSE OF 30MG 90 tablet 3 4 Active tretinoin (RETIN-A) 0.025 % creamIndications :Sun Damaged Skin Apply 1 Application topically at bedtime. Apply to face nightly. 45 g 2 4 Active hydroquinone 4 % cream Apply 1 Application topically 2 (two) times a day. Apply to face for 2 months. 28.35 g 1 4 Active metroNIDAZOLE (METROCREAM) 0.75 % cream Apply 1 Application topically 2 (two) times a day as needed (rash face). 45 g 3 4 Active buPROPion (WELLBUTRIN SR) 150 mg 12 hr tabletIndication s:Anxiety Generalized Disorder,Depress ed Libido TAKE 1 TABLET(150 MG) BY MOUTH TWICE DAILY 180 tablet 3 4 Active citalopram (CeleXA) 10 mg tablet take 1 tablet by mouth every day 90 tablet 3 4 Active Tri-Ina 0.01-4-0.05 % cream APPLY TOPICALLY TO THE AFFECTED AREA OF FACE AT BEDTIME 30 g 1 4 Active tolterodine (DetroL LA) 4 mg 24 hr capsule TAKE 1 CAPSULE BY MOUTH EVERY 24 HOURS 4 Active Active Problems Patient Care Coordination No te [...] consistent with [facility] 's provider: [facility] education completed. Pre-reg completed at [facility]. FOB involved- NO- MOM AND SISTER FOR LABOR SUPPORT [facility] nursing referral faxed on 05/29. OB labs [...] Arthritis Rheumatoid 05/20/2018 Asthma Mild Intermittent 06/06/2015 Major Depressive Disorder, Recurrent, Unspecifie d 10/13/2014 Resolved Problems Problem Noted Date Diagnosed Date Resolved Date Positive Group B Streptococcus 12/12/2018 02/24/2019 Affective Seasonal Disorder 11/15/2015 05/13/2019 Overview (12/04/2016): Disorder Affective Seasonal Depression Major 10/19/2015 05/13/2019 Asthma NOS 09/15/2012 05/13/2019 Overview (12/04/2016): Asthma, Unspecified Encounters Date Type Department Care Team Description 06/12/2024 Clinical Communication Department of Radiology in [place], [place] [address] [phone] External, Ordering Provider, M.DGenet 06/08/2024 Clinical Communication Department of [facility], in [address] [phone] [facility] Guid[facility] APRN C.N.PGenet, D.N.P. 06/05/2024 Clinical Communication Department of [facility], [address] [phone] [place] Guerra APRN C.N.P., D.N.P. Appt Request (MRI) 06/03/2024 9:30 AM RN BARIATRIC Office Visit Department of [facility], in [place], [place] [address] [place] [address] Rose Mary Perkins APRN, C.N.P., D.N.P. Preoperative Exam (Primary Dx); Pain Big Great Toe Right 05/05/2024 12:30 PM CDT Clinical Support Department of Nutrition in [address] [phone] Rose Mary Perkins APRN, C.N.P., D.N.P. MeenaShea nogueira, RDN, LD Overweight Body Mass Index 25-29.9 Adult (Primary Dx); Fatigue 05/05/2024 Clinical Communication Department of Family Medicine, [facility], in [address] [phone] Rose Mary Perkins APRN, C.N.P., D.N.P. Med Question 04/07/2024 Clinical Communication Department of Otorhinolaryngology in [place], [place] [address] [place] [phone] Jayden Rowell M.D. SURGERY DATE 04/06/2024 4:00 PM CDT Virtual Visit Department of Otorhinolaryngology in [address] [phone] Leena Cruz PGenetA.-CGenet Obstruction Nasal (Primary Dx); Hypertrophy Nasal Turbinate; Deviation Nasal Septal; Sinusitis Chronic 04/03/2024 10:11 AM CDT - 04/03/2024 11:59 PM CDT Hospital Encounter Department of Radiology in [place], [place] [address] [place] [phone] Leena Cruz P.A.-C. Obstruction Nasal Discharge Disposition: Home or Self Care 03/31/2024 Clinical Communication Department of Otorhinolaryngology in [place], [place] [address] [place] [phone] NancyLeena esteves P.A.-C. from Last 3 Months Immunizations Name Administration Dates Next Due 4vHPV (discontinued) 03/27/2012,06/27/20 11,03/27/2011,2009 9vHPV 03/27/2012,06/27/2011,03/27/2011 DTP 03/09/1998, 3,05/12/1993,1992,1992 HepA Adult 05/30/2016,10/13/2014 HepB (discontinued) adolesce nt/high risk infant 05/30/2016,11/24/2014,10/25/2014 HepB Adult 05/30/2016,11/24/2014,10/25/2014 HepB Pediatric/Adolescent 07/05/1993,1992, 1992 Hib (HbOC) (discontinued) 07/05/1993,1992, 1992 Influenza TIV (IM) 03/27/2012,03/27/2011, 010 Influenza, Injectable, Mdck, Preservative Free, Quadrivalent 05/13/2019 Influenza, Injectable, Quadrivalent 06/06/2015 Influenza, Seasonal, Injectable 05/05/20 12,03/27/2012,03/27/2011,2009 Influenza, Unspecified 05/13/2019,2017,07/12/2017,2015,06/06/2015,04/21/2014,04/30/2013,1 ,03/27/2012,03/27/2011 MCV4 (Menactra)(Discontinued) 08/09/2010 MMR 07/10/2005,07/05/1993 MPSV4 08/09/2010 OPV 07/05/1993, 3,1992,1991 PCV20 12/08/2021 SARS-COV-2 (COVID-19) - MODERNA(Discontinued) 08/22/2023(Deferred: Patient decision) Td Preservative Free (TENIVA C, DECAVAC) 07/10/2005 Tdap 10/15/2018,10/13/2014,07/10/2005 influenza trivalent vaccine (6 months and older)(PF) 05/13/2019 influenza vaccine quad (FLUZONE/FLUARIX) (6 months and older)(PF) 04/30/2022,05/20/2021,07/05/2020,2018,04/30/2018,07/12/2017,05/17/2016 Family History Medical History Relation Name Comments ADD Brother Lucius trivedi Asthma Brother Lucius trivedi Depression Brother Lucius trivedi Learning disorder Brother Lucius trivedi Alcohol abuse Father Maurisio trivedi Anxiety disorder Father Maurisio trivedi Depression Father Maurisio trivedi Skin cancer Grandfather Stroke Maternal Grandfather deloris monet Arthritis Maternal Grandmother Katiana contrerass Osteoporosis Maternal Grandmother Katiana contrerass Ovarian cancer Maternal Grandmother Katiana contrerass 7 0s Asthma Mother Diana trivedi Ovarian cancer Other maternal great aunt 60s Lung cancer Paternal Grandfather Rio schelectank Depression Paternal Grandmother Sheree barkley Stroke Paternal Grandmother Sheree barkley ADD Sister maida trivedi Relation Name Status Comments Brother Lucius trivedi Father Maurisio trivedi Grandfather Maternal Grandfather deloris monet Maternal Grandmother Katiana martines Mother Diana trivedi Other maternal great aunt Paternal Grandfather Rio barkley Paternal Grandmother Sheree barkley Sister maida trivedi Social History Tobacco Use Types Packs/Day Years Used Date Smoking Tobacco: Light Smoker Cigarettes 0.5 6 Smokeless Tobacco: Never Tobacco Cessation:Ready to Q uit: Not Asked; Counseling Given: Yes Alcohol Use Standard Drinks/Week Comments No 0 (1 standard drink = 0.6 oz pur e alcohol) [facility] Utilities Answer Date Recorded In the past 12 months has [employer], gas, oil, or water [employer] threatened to shut off services in your [...] any clubs o r organizations such as hoahaoism groups, unions, fraternal or athletic groups, or [...] PHQ-2 Answer Date Recorded PHQ-2 Score 2 03/11/2024 [facility] - [...] Recor ded PHQ-9 Total Score (max 27) 5 03/11 Nutrition Answer Date Recorded On average, how many serving s of [...] your living situation today? I have a [employer] place to live 08/22/2023 Education Answer Date Recorded What is the highest level of school you have completed or the highest degree you have received? Bachelor's degree (e.g., BA, AB, BS) 12/24/2018 Comments No Sex and Gender Information Value Date Recorded Sex Assigned at Female 02/12/2020 1:12 PM CDT Legal Sex Female 5:00 PM RN BARIATRIC Gender Identity Female 02/12/2020 1:12 PM CDT Sexual Orientation Straight 02/12/2020 1: 12 PM CDT Last Filed Vital Signs Vital Sign Reading Time Taken Comments Blood Pressure 113/77 06/03/2024 9:27 AM RN BARIATRIC Pulse 81 06/03/2024 9:27 AM RN BARIATRIC Temperature 35.8 C (96.4 F) 06/03/2024 9:27 AM RN BARIATRIC Respiratory Rate 18 06/03/2024 9:27 AM RN BARIATRIC Oxygen Saturation 97% 06/03/2024 9:27 AM RN BARIATRIC Inhaled Oxygen Concentration - - Weight 81.8 kg (180 lb 3.6 oz) 06/03/2024 9:27 A M RN BARIATRIC Height 166 cm (5' 5.35) 06/03/2024 9:27 AM RN BARIATRIC Body Mass Index 29.67 06/03/2024 9:27 AM RN BARIATRIC Plan of Treatment Upcoming Encounters Date Type Department Care Team (Late st Contact Info) Description 06/23/2024 11:00 AM RN BARIATRIC Office Visit Department of Otorhinolaryngology in [place], [place] [address] [phone] Leena Cruz P.A.-C. [address] [phone] 06/25/2024 1:00 PM RN BARIATRIC Appointment Department of Radiology in [place], [place] [address] [phone] Charles Price D.PGenetM. [address] [place] [phone] Health Maintenance Due Date Last Done Comments COVID-19 Vaccine (#1) 1997 Zoster Vaccines (1 of 2) 2011 Asthma Action Plan 11/06/2022 11/06/2021, 05/30/2016 Influenza Vaccine (#1) 2024 , 05/20/2021, 07/05/2020, Additional history exists Depression Monitoring (PHQ-9) 07/11/2024 03/11/2024, 10/15/2017 Asthma Control Test Questionnaire 06/03/2025 024, 05/30/2016 Asthma Management/Exacerbati on Questionnaire (AMQ/AEQ) 06/03/2025 06/03/2024, 08/22/2023 Tobacco Cessation counseling 06/03/2025 06/03/2024 Cervical/Vaginal Cancer Screening 06/02/2026 06/02/2021, 06/02/2021, 02/24/2019, Additional history exists DTaP,Tdap,and Td Vaccines (8 - Td or Tdap) 10/15/2028 10/15/2018, 10/13/2014, 07/10/2005, Additional history exists IPV Vaccines Completed 07/05/1993, 04/15, 1992, Additional history exists HPV Vaccines Completed 03/27/2012, 03/15, 06/27/2011, Additional history exists Hepatitis C Screening Completed 11/03/2015 Hepatitis A Vaccines Completed 05/30/2016, 10/14/19 15 Hepatitis B Vaccines Completed 05/30/2016, 05/30/2016, 11/24/2014, Additional history exists HIV Screening Completed 05/20/2018, 11/03/2015 Pneumococcal vaccine (0-64 years) Completed 022 Depression Monitoring (PHQ-9 for quality tracking) Completed 10/31/2023 Medical Devices Implanted Type Area Mechanical Technologist Device Identifier Shelf Expiration Date Model / Serial / Lot Hardware E.G. Pins/Screws/Ro ds Hardware e.g. pins/screws/ rods Right: Foot Procedures Procedure Name Priority Date/Time Associated Diagnosis Comments CT SINUSES WITHOUT IV CONTRAST RAD - Routine (most inpatients and all outpatients) 04/03/2024 10:24 AM CDT Obstruction Nasal HPV WITH GENOTYPING, PCR, THINPREP Routine 06/02/2021 10:06 AM RN BARIATRIC HIV-1 P24 AG, HIV-1/2 AB ,P Routine 05/20/2018 12:40 PM RN BARIATRIC Examination Test With Positive Result HCV AB SCRN W/REFLEX TO HCV PCR, S Routine 11/03/2015 3:08 PM CDT from Last 3 Months or Most Recently Relevant to Health Maintenance Results * CT Sinuses without IV Contrast (04/03/2024 10:24 AM CDT) Anatomical Region Laterality Modality Head, Neuroradiology RST LOS , Neuroradiology ARZ LOS, Neuroradiology FLA LOS N/A Computed Tomography 04/03/2024 10:2 3 AM CDT Impressions 04/03/2024 10:45 AM CDT 1. Rightward nasal septal deviation. 2. Sporadic pattern of paranasal sinus mucosal thickening, most pronounced and moderate within the left maxillary sinus. Narrative 04/03/2024 10:45 AM CDT EXAM: CT SINUSES WITHOUT IV CONTRAST COMPARISON: None FINDINGS: Nasal septum is significantly deviated to the right. Mild right and moderate left mucosal thickening throughout the maxillary sinuses. The ostiomeatal unit is obstructed on the right and narrowed on the left. Mild mucosal thickening in the sphenoid sinuses. Frontal and ethmoid sinuses are patent. Medial orbital gonzalez are intact. No acute fracture or osseous dehiscence. 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 Procedure Note Giorgi Calderon M.D. - 04/03/2024 EXAM: CT SINUSES WITHOUT IV CONTRAST COMPARISON: None FINDINGS: Nasal septum is significantly deviated to the right. Mild right andmoderate left mucosal thickening throughout the maxillary sinuses. Theostiomeatal unit is obstructed on the right and narrowed on the left. Mildmucosal thickening in the sphenoid sinuses. Frontal and ethmoid sinuses are patent. Medial orbital gonzalez areintact. No acute fracture or osseous dehiscence. Congenital nonfusion ofthe posterior C1 arch. IMPRESSION: 1. Rightward nasal septal deviation. 2. Sporadic pattern of paranasal sinus mucosal thickening, most pronouncedand moderate within the left maxillary sinus. us Leena Cruz P.A.-C. IMG CT PROCEDURES Final R esult * HPV with Genotyping, PCR, ThinPrep (06/02/2021 10:06 AM RN BARIATRIC) HPV with Genotyping, ThinPrep, PCR Negative Negative 06/05/2021 6:05 PM RN BARIATRIC [facility] Comment: Negative for high risk HPV by nucleic acid amplification. The following high risk HPV types were not detected: 16, 18, 31, 33, 35, 39, 45, 51, 52, 56, 58, 59, 66, and 68 Varies 06/02/2021 10:0 6 AM RN BARIATRIC 06/05/2021 6:51 AM RN BARIATRIC us Cyrus Parker M.D. LAB MICROBIOLOGY - GENERAL O RDERABLES Final Result Performing Organization Address [facility]/ZIP Co de Phone Number [facility] [address] [place] [address], [facility] MKTO [facility] in [place] [address] [place] [address] * HIV-1 p24 Ag, HIV-1/2 Ab ,P (05/20/2018 12:40 PM RN BARIATRIC) HIV Ag/Ab Scrn, P Negative Negative 05/21/2018 1:55 PM RN BARIATRIC [facility] Comment: Negative result does not rule out HIV infection. If exposure to HIV infection occurred <14 days ago, contact the laboratory to request addition of HIV-1 RNA detection / quantification test. HIV-1 p24 Ag Scrn, P Negative Negative 05/21/2018 1:55 PM RN BARIATRIC [facility] Comment: Negative result does not rule out HIV infection. If exposure to HIV infection occurred <14 days ago, contact the laboratory to request addition of HIV-1 RNA detection / quantification test. HIV-1 Ab Scrn, P Negative Negative 05/21/2018 1:55 PM RN BARIATRIC [facility] Comment: Negative result does not rule out HIV infection. If exposure to HIV infection occurred <14 days ago, contact the laboratory to request addition of HIV-1 RNA detection / quantification test. HIV-2 Ab Scrn, P Negative Negative 05/21/2018 1:55 PM RN BARIATRIC [facility] Comment: Negative result does not rule out HIV infection. If exposure to HIV infection occurred <14 days ago, contact the laboratory to request addition of HIV-1 RNA detection / quantification test. Blood (Blood, Venous) 05/20/2018 12:40 PM RN BARIATRIC 05/21/2018 11:59 AM RN BARIATRIC Nicol Brady M.D. LAB MICROBIOLOGY - BLOOD ORDERABLES Final Result Performing Organization Address [facility]/ZIP Co de Phone Number [facility] [address] [place] [address], [facility] * HCV Ab w/Reflex to HCV PCR, S (medicare) (11/03/2015 3:08 PM CDT) HXHCV Ab [facility] Negative Negative POWERCHART Comment: Tkwoza-[id number] ratio is <1.00. Test Performed by: [address] [address] Drilling Engineering Manager: Santo Hopkins II, M.D., Ph.D. Blood 11/03/2015 3:08 PM CDT Kimo Foster M.D. LAB MICROBIOLOGY - BLOOD O RDERABLES Final Result POWERCHART from Last 3 Months or Most Recently Relevant to Health Maintenance Insurance [facility] Care Teams Drum Maker Relationship Specialty Start Date End Date DelroyRose Mary Guidry APRN, C.N.P., D.N.P. [address] [place] [address] PCP - General 01/07/23
--- OUTSIDE RECORDS SUMMARY | 2024-06-19 00:23 | XMS_ITS | Referral Summary ---
Author Organization [facility] Address [address] [place] [phone] Care Team Providers Care Camp Director Name Role Phone Jody Muller NP Primary Care Provider [phone] Allergies No known active allergies Medications levonorgestrel- [...] (Menomune ) 08/09/2010 TD,PF 7+ (Tenivac) 07/10/2005 Social History [...] on file Legal Sex Female 4:31 AM RUMPER Gender Identity Not on file Sexual Orientation [...] ASTHMA ACTION PLAN Routine 08/28/2012 3:27 PM RUMPER Intermittent asthma from Last 3 Months or Most Recently Relevant to Health Maintenance Insurance [facility] Care Teams Camp Director Relationship Specialty Start Date End Date Jody Muller NP [address] [address] PCP - General 11/26/21
--- OUTSIDE RECORDS SUMMARY | 2024-06-19 00:23 | XMS_ITS | Data Portability ---
Author Organization [place] - [facility], [employer] Address [address] [place] [address] Assessment Encounter Date Assessment Date Assessment LastModified by Organization Details LastModified Time 05/21/2023 05/21/2023 Patient was educated on advancing [...] available 07/09/2023 02:52:58 07/04/2023 07/04/2023 We dispensed trial ped pillows size 11, trial mens shoes [...] and we proceed with scanning if eligible. [email or web address] Not available 10/08/2023 17:07:32 06/04/2024 06/04/2024 Discussed with the patient her diagnosis as detailed down below. I informed her that at this time she has 3 possible options moving forward. First would be to attempt orthotic modifications to see if there is any symptom reduction. I informed her that I do not think that this would be of realistic clinical benefit due to the complete loss of range of motion (frozen joint), however this could be attempted if she would like to avoid invasive procedures. Option 2 would be to pursue a local injection in the office followed by manual manipulation of the 1st MPJ to assess if any scar tissue could be broken up. The patient was informed that due to now having a 2nd loss of range of motion I would recommend further imaging in the form of a dynamic US (secondary to current hardware I do not believe an MRI will result in overall good image quality) to assess for underlying scar tissue. I did also discuss with the patient that I will be in discussion with my colleagues for other opinions regarding her care as well. Will be seen back after undergoing an ultrasound for discussion and management. [email or web address] Not available 06/08/2024 11:18:33 Plan of Treatment Reminders Order Date Submit Date Provider Last Modified By Organization Details Last Modified Time Details Appointments None record ed. Lab None record ed. Referral None record ed. Procedures None record ed. Surgeries None record ed. Imaging XR, foot, 3 or more view 023 05/21/20 23 [facility], [address] [place] [address], [phone], 3 16:42:35 XR, foot, 3 or more view 023 07/02/20 23 [facility], [address] [place] [address], [phone], 3 23:21:09 XR, foot, 3 or more view 024 06/08/20 24 [facility], [address] [place] [address] [place], [address], 12:36:34 XR, foot, 3 or more view 024 06/04/20 24 [facility], [address] [place] [address], [place], [address], 12:36:34 Medication Orders None record ed. Patient TargetsNo targets recorded. Patient InstructionsNo instructions recorded. Reason for Referral None Reported. Results Created Date Observation Date Name Description Value Unit Range Abnormal Flag Note LastModifiedBy Organization Detail LastModifiedTime 04/23/20 23 XR, foot, 3 or more view No observ ation record ed. [email or web address] [facility] [address] [place] [address] [place], [address], 04/23/2023 15:06:11 05/21/20 23 XR, foot, 3 or more view No observ ation record ed. [email or web address] [facility] [address] [place] [address] [place], [address], 05/22/2023 04:11:54 07/02/20 23 XR, foot, 3 or more view No observ ation record ed. [email or web address] [facility] [address] [place] [address] [place], [address], 07/02/2023 14:43:08 06/04/20 24 XR, foot, 3 or more view No observ ation record ed. [email or web address] [place] [facility] [address] [place] [address] [place], [address], 06/04/2024 17:45:24 06/08/20 24 XR, foot, 3 or more view No observ ation record ed. [email or web address] [place] [facility] [address] [place] [address] [place], [address], 06/08/2024 10:55:26 Result Notes None recorded. Problems Name Problem SNOMED Code Status Onset Date Resolution Date Notes Provider Name and Address Organization Details Recorded Time Acquired hallux rigidus 6825235 Active 016 Acquired hallux rigidus; Original Code: 14765137 Original Codesyste m: SNOMED CT Classi fication: Medical C onfirmati on Status: Confirmed Not Available [facility] 09:10:51 Problem Notes None recorded. Procedures Surgical History Date Name Laterality Status Provider Name and Address Organization Details Recorded Time 04/04/20 CallusDEBRIDEMENT completed Shreyas LIPSCOMB - [facility] 04/04/2023 10:45:58 Imaging Results Imaging Date Name Status LastModified by José Miguel jara Details LastModified Time 04/23/2023 XR, foot, 3 or more view active [place] [facility] [address] [place] [address], [phone], 04/23/2023 15:06:11 05/21/2023 XR, foot, 3 or more view active [place] [facility] [address] [place] [address], [address], 05/22/2023 04:11:54 07/02/2023 XR, foot, 3 or more view active [place] [facility] [address] [place] [address], [address], 07/02/2023 14:43:08 06/04/2024 XR, foot, 3 or more view completed [address] [facility] [address] [place] [address], [address], 06/04/2024 17:45:24 06/08/2024 XR, foot, 3 or more view completed [address] [facility] [address] [place] [address], [address], 06/08/2024 10:55:26 Procedure Notes None recorded. Medical Equipment None Reported. Allergies No known drug allergies Medications Name Sig Start Date Stop Date Status Note LastModified by Organization Details LastModified Time tolterodine ER 2 mg capsule,ext ended release 24 hr TAKE 1 CAPSULE BY MOUTH EVERY 24 HOURS active Not Available Not Available No t Available amoxicillin 500 mg capsule 06/04 completed Not Available Not Available Not Available bupropion HCl SR 150 mg tablet,12 hr sustained-r elease TAKE 1 TABLET BY MOUTH TWICE DAILY . APPOINTME NT REQUIRED FOR FUTURE REFILLS active Not Available Not Available No t Available nystatin 100,000 unit/mL oral suspension SWISH AND SPIT 5 ML BY MOUTH FOUR TIMES DAILY FOR 7 DAYS active Not Available Not Available No t Available oxybutynin chloride ER 10 mg tablet,exte nded release 24 hr active Not Available Not Available Not Available Retin-A 0.025 % topical cream APPLY TOPICALLY TO FACE EVERY NIGHT AT BEDTIME active Not Available Not Available No t Available ibuprofen 800 mg tablet 06/04 completed Not Available Not Available Not Available fluconazole 150 mg tablet active Not Available Not Available Not Available citalopram 10 mg tablet TAKE 1 TABLET BY MOUTH EVERY DAY active Not Available Not Available No t Available tolterodine ER 4 mg capsule,ext ended release 24 hr TAKE 1 CAPSULE BY MOUTH EVERY 24 HOURS active Not Available Not Available No t Available hydrocodone 5 mg-acetamin ophen 325 mg tablet 06/04 completed Not Available Not Available Not Available hydroquinon e 4 % topical cream APPLY 1 APPLICATI ON TOPICALLY TWICE A DAY; APPLY TO FACE FOR 2 MONTHS 06/04 completed Not Available Not Available Not Available prednisone 20 mg tablet TAKE 2 TABLETS BY MOUTH DAILY FOR 5 DAYS 06/04 completed Not Available Not Available Not Available clindamycin HCl 150 mg capsule TAKE 3 CAPSULES BY MOUTH 3 TIMES DAILY FOR 10 DAYS 06/04 completed Not Available Not Available Not Available oxycodone 5 mg/5 mL oral solution TAKE 5 TO 10 ML BY MOUTH EVERY 4 HOURS NEEDED FOR ACUTE PAIN OR SEVERE POST OPERATIVE PAIN 06/04 completed Not Available Not Available Not Available tramadol 50 mg tablet TAKE 1 TABLET BY MOUTH EVERY 4-6 HOURS NEEDED FOR PAIN 06/04 completed Not Available Not Available Not Available ondansetron 8 mg disintegrat ing tablet active Not Available Not Available N ot Available citalopram 20 mg tablet TAKE 1 TABLET BY MOUTH DAILY ALONG WITH A 10 MG TABLET FOR A TOTAL DOSE OF 30 MG. active Not Available Not Available No t Available benzonatate 100 mg capsule 06/04 completed Not Available Not Available Not Available promethazin e 25 mg tablet TAKE ONE TABLET EVERY 6 HOURS NEEDED FOR NAUSA 06/04 completed Not Available Not Available Not Available metronidazo le 0.75 % topical cream APPLY 1 APPLICATI ON TOPICALLY 2 TIMES DAILY NEEDED active Not Available Not Available No t Available hydroxychlo roquine 200 mg tablet TAKE 1 TABLET BY MOUTH TWICE DAILY active Not Available Not Available No t Available ondansetron 4 mg disintegrat ing tablet TAKE DISSOLVE ONE TABLET ON TONGUE EVERY 4 HOURS NEEDED FOR NAUSEA 06/04 completed Not Available Not Available Not Available cefdinir 300 mg capsule 06/04 completed Not Available Not Available Not Available fluticasone propionate 50 mcg/actuati on nasal spray,suspe nsion SHAKE LIQUID AND USE 2 SPRAYS IN EACH NOSTRIL DAILY active Not Available Not Available No t Available amoxicillin 875 mg-potassiu m clavulanate 125 mg tablet 06/04 completed Not Available Not Available Not Available oxycodone 5 mg tablet TAKE 1 TABLET BY MOUTH EVERY 4 HOURS NEEDED 06/04 completed Not Available Not Available Not Available Tri-Ina 0.01 %-4 %-0.05 % topical cream APPLY TOPICALLY TO THE AFFECTED AREA OF FACE AT BEDTIME active Not Available Not Available No t Available cyclobenzap rine 5 mg tablet TAKE 1 TABLET BY MOUTH THREE TIMES DAILY 06/04 completed Not Available Not Available Not Available Flovent HFA 110 mcg/actuati on aerosol inhaler INHALE 2 PUFFS BY MOUTH DAILY NEEDED FOR ASTHMA. RINSE MOUTH WITH WATER AFTER USE FOR AFTERTAST E AND INCIDENCE OF CANDIDIAS IS. DO NOT SWALLOW 06/04 completed Not Available Not Available Not Available ProAir HFA 90 mcg/actuati on aerosol inhaler INHALE 1 TO 2 PUFFS NEEDED FOR WHEEZING OR SHORTNESS OF BREATH 06/04 completed Not Available Not Available Not Available QuickVue At-Home COVID-19 Test kit TEST DIRECTED TODAY 06/04 completed Not Available Not Available Not Available Vitals None Recorded Social History None recorded. Functional Status None recorded. Mental Status None recorded. Family History Nothing Reported. Medical History No medical history recorded. Gynecological HistoryNo gynecological history recorded. Obstetrics History GPAL:G 0 P 0 0 0 0 Past Encounters Encounter ID Performer Location Encounter Start Date Encounter Closed Date Diagnosis/Indication Diagnosis SNOMED-CT Code Diagnosis ICD10 Code [id number] [facility] [address] [place] [address] 05/22/2022 15:11:57 05/22/2022 16:10:42 Postoperative visit 891143018 Z09 Hallux josey anuel AND bunion 514076215 M20.11 [id number] Shreyas Magana [place] [facility] [address] [place] [address] 04/04/2023 10:01:39 04/08/2023 09:51:08 Postoperative care 593668881 Z48.89 Low back pain 653788420 M54.50 Foot callus 251865506 L8 4 [id number] [facility] [address] [place] [address] 04/05/2023 12:00:25 04/08/2023 09:52:29 Acquired hallux limitus of left great toe [id number] 019716 M20.5X2 Acquired h allux limitus of right great toe 3695696864 605046 M20.5X1 [id number] Fabien Vann DPM [place] [facility] [address] [place] [address] 4 04/11/2023 10:05:32 04/15/2023 09:22:53 Acquired hallux limitus of right great toe 4648024809 673047 M20.5X1 Acquired h allux limitus of left great toe 7479946693 835331 M20.5X2 [id number] Fabien Vann DPM [facility] [address] [place] [address] 04/16/2023 09:22:47 04/17/2023 11:10:05 Acquired hallux limitus of right great toe 3740670304 212073 M20.5X1 Acquired h allux limitus of left great toe 5530331171 348310 M20.5X2 [id number] RAMESH WatsonM [place] [facility] [address] [place] [address] [place] [address] 04/23/2023 14:43:01 04/25/2023 10:08:48 Postoperative care 610921100 Z48.89 [id number] Fabien Vann, [facility] Office [address] [place] [address] 05/02/2023 12:30:21 05/06/2023 13:18:36 Postoperative care 890710030 Z48.89 [id number] Fabien Vann, [facility] [address] [place] [address] 4 05/21/2023 14:49:22 05/22/2023 09:49:30 Postoperative care 091881390 Z48.89 [id number] Fabien Vann, [facility] [address] [place] [address] 4 07/02/2023 14:16:03 07/10/2023 23:21:09 Postoperative care 327936346 Z48.89 [id number] [facility] [address] [place] [address] 07/04/2023 11:49:12 07/09/2023 13:21:56 Acquired hallux limitus of left great toe 7765416012 847361 M20.5X2 [id number] [facility] [address] [place] [address] 10/08/2023 15:14:14 10/09/2023 12:09:45 Pain in left foot 9719476676 61165 M79.672 Pain in right foot 10042 16349 34293 M79.671 Postoperative care 56559 9007 Z48.89 [id number] Charles Price, [facility] [address] [place] [address] 4 06/04/2024 16:58:44 06/08/2024 12:36:34 Acquired hallux limitus of right great toe 7057070219 876463 M20.5X1 Keloid scar 92252517 L91 .0 Acquired h allux limitus of left great toe 6905711603 209707 M20.5X2 Health Concerns Section Related Observation LastModified by Organization Detai ls LastModified Time None Recorded Concern Status LastModified by Organization Details LastModified Time None Recorded Advance Directives Directive None Recorded Payers Encounter Date Sequence Insurance Name Policy Number Policy May Covered Member ID May Member ID Guarantor Name 05/21/2023 1 [employer] - DOS ON OR AFTER 2021 [id number] 1 Keily E Maxa [id number] Keily E Maxa 07/02/2023 1 [employer] - DOS ON OR AFTER 2021 [id number] 1 Keily E Maxa [id number] Keily E Maxa 07/04/2023 1 [employer] - DOS ON OR AFTER 2021 [id number] 1 Keily E Maxa [id number] Keily E Maxa 10/08/2023 1 [employer] - DOS ON OR AFTER 2021 [id number] 1 Keily E Maxa [id number] Keily E Maxa 06/04/2024 1 [employer] - DOS ON OR AFTER 2021 [id number] 1 Keily E Maxa [id number] Keily E Maxa Notes Date Note Type Note Provider Name and Address Organization Details Recorded Time 05/21/2023 text/html Patient 5 wk postop and is doing well. Patient denies significant pain. Pain is controlled with PO meds. Patient has been resting, elevating and icing. Patient has ambulated minimally in the surgical shoe/ weight on heel. Patient denies n/v/f/c/calf pain or SOB. She is having pain on the lateral side of the left foot. The procedure was done last 04/16/2023:1. Right - 1st MPJ manipulation with arthroplasty2. Right - cheilectomy on the 1st metatarsal Fabien Vann, CARLOS [address] [place], [address], [facility] - [facility] 05/22/2023 09:27:40 07/02/2023 text/html Patient 11 wks postop and is doing well. Patient denies significant pain. Pain is controlled with PO meds. Patient has been resting, elevating and icing. Patient has ambulated minimally in the surgical shoe/ weight on heel. Patient denies n/v/f/c/calf pain or SOB. She is having pain on the lateral side of the left foot. The procedure was done last 04/16/2023:1. Right - 1st MPJ manipulation with arthroplasty2. Right - cheilectomy on the 1st metatarsal The patient concerns of left foot with developing hallux limitus. Increasing sx in left footright foot doing well. 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 RUEL Carrasco - [facility] 07/10/2023 09:08:44 10/08/2023 text/html The patient is here for a follow [...] [facility] 10/08/2023 17:08:46 06/04/2024 text/html Patient is a 34 year old female established patient who presents to clinic today for evaluation of bilateral foot pain. The patient was previously seen by myself for a 2nd opinion regarding loss of ROM after having a modified Isaac Bunionectomy to address hallux limitus. The patient underwent a revision procedure of 1st MPJ manipulation with arthroplasty and cheilectomy on the 1st metatarsal 04/16/2023. She mentions that after the procedure she had tremendous improvement in terms of range of motion, however over the course of the last year she has noticed further reduction of range of motion to the point of the metatarsal being frozen at this time. The patient mentions that on the left foot she is having the start of catching symptoms. Charles Price, CARLOS [address] [place], [address], [place] - [facility] 06/08/2024 11:18:47 OBGyn Episode No OBEpisode recorded.
--- OUTSIDE RECORDS SUMMARY | 2024-06-19 00:23 | XMS_ITS | Continuity of Care Document ---
Author Organization [place] - [facility], [place] [facility] Address [address] [place] [address] Assessment Encounter Date Assessment Date Assessment LastModified by Organization Details LastModified Time 06/04/2024 06/04/2024 Discussed with the patient her [...] Imaging XR, foot, 3 or more view 024 06/08/20 24 [facility], [address] [place] [address] [address], [place], [address], 12:36:34 XR, foot, 3 or more view 024 06/04/20 24 luis [email or web address] [facility], [address] [place] [address], [address], 12:36:34 Medication Orders None record ed. Patient TargetsNo targets recorded. Patient InstructionsNo instructions recorded. Reason for Referral None Reported. Results Created Date Observation Date Name Description Value Unit Range Abnormal Flag Note LastModifiedBy Organization Detail LastModifiedTime 06/04/20 24 XR, foot, 3 or more view No observ ation record ed. [address] [place] [address], [address], 06/04/2024 17:45:24 06/08/20 XR, foot, 3 or more view No observ ation record ed. [address], [address], 06/08/2024 10:55:26 Result Notes None recorded. Problems Name Problem SNOMED Code Status Onset Date Resolution Date Notes Provider Name and Address Organization Details Recorded Time Acquired hallux rigidus 8667285 Active 016 Acquired hallux rigidus; Original Code: 53154184 Original Codesyste m: SNOMED CT Classi fication: Medical C onfirmati on Status: Confirmed Not Available [facility] 09:10:51 Problem Notes None recorded. Procedures Surgical History Date Name Laterality Status Provider Name and Address Organization Details Recorded Time 04/04/20 23 CallusDEBRIDEMENT completed Shreyas Magana [place] - [facility] 04/04/2023 10:45:58 Imaging Results Imaging Date Name Status LastModified by José Miguel ation Details LastModified Time 06/04/2024 XR, foot, 3 or more view completed [address], [address], 06/04/2024 17:45:24 06/08/2024 XR, foot, 3 or more view completed [address] [facility] [address], [place], [address], 06/08/2024 10:55:26 Procedure Notes None recorded. Medical [...] NEEDED FOR WHEEZING OR SHORTNESS OF BREATH 11/21 /2024 completed Not Available Not Available Not Available [...] Diagnosis/Indication Diagnosis SNOMED-CT Code Diagnosis ICD10 Code Charles Price DPM [place] [facility] [address] [place] [address] 06/04/2024 16:58:44 06/08/2024 12:36:34 Acquired hallux limitus of right great toe 9812591557 050588 M20.5X1 Keloid scar 71435706 L91 .0 Acquired h allux limitus of left great toe 3070587723 935777 M20.5X2 Health Concerns Section Related Observation LastModified by Organization Detai ls LastModified Time None Recorded Concern Status LastModified by Organization Details LastModified Time None Recorded Payers Encounter Date Sequence Insurance Name Policy Number Policy May Covered Member ID May Member ID Guarantor Name 06/04/2024 1 [facility] - DOS ON OR AFTER 2021 [id number] 1 Keily Trivedi [id number] Keily Trivedi Notes Date Note Type Note Provider Name and Address Organization Details Recorded Time 06/04/2024 text/html Patient is a 34 year [...] having the start of catching symptoms. Charles Price DPM [address] [place], [address], [facility] - [facility] 06/08/2024 11:18:47 OBGyn Episode No OBEpisode recorded.
--- OUTSIDE RECORDS SUMMARY | 2024-06-19 00:24 | XMS_ITS | Encounter Summary ---
Author Organization [facility] Address [address] [place] [address] Care Team Providers Care Complaint Inspector Name Role Phone Rose Mary Perkins APRN, C.N.P., D.N.P. P [facility] Care Provider Reason for Visit * Outpatient (Routine) - Closed Specialty Diagnoses / Procedures Referred By Tayler t Referred To Contact Nutrition Diagnoses Fatigue Rose Mary Perkins APRN, C.N.P., D.N.P. [address], [place] [address] Phone: tel: fax: [facility] Referral ID Status Reason Start Date Expiration Date Visits Re quested Visits Authorized [id number] Closed 03/19/2024 09/18/2025 1 1 Encounter Details Date Type Department Care Team (Late st Contact Info) Description 05/05/2024 12:30 PM CDT Clinical Support Department of Nutrition in [place], [place] [address] [place] [phone] Rose Mary Perkins APRN, C.N.P., D.N.P. [address] [place] [phone] Shea Robledo RDN, LD [address] [place] [address] Overweight Body Mass Index 25-29.9 Adult (Primary Dx); Fatigue Social History Tobacco Use Types Packs/Day Years Used Date Smoking Tobacco: Light Smoker Cigarettes 0.5 6 Smokeless Tobacco: Never Alcohol Use Standard Drinks/Week Comments No 0 (1 standard drink = 0.6 oz pur e alcohol) [facility] Utilities Answer Date Recorded In the past 12 months has e electric, gas, oil, or water company threatened to shut off services in your [...] week 11/06/2021 How often do you attend [facility] or anglican services? Patient declined 11/06/2021 Do you belong [...] Answer Date Recorded PHQ-2 Score 2 03/11/2024 [facility] - Occupational Stress Questionnaire Answer Date [...] your living situation today? I have a [facility] place to live 08/22/2023 Education Answer Date Recorded What is the highest level of school you have completed or the highest degree you have received? Bachelor's degree (e.g., BA, AB, BS) 12/24/2018 Comments No Sex and Gender Information Value Date Recorded Sex Assigned at Female 02/12/2020 1:12 PM CDT Legal Sex Female 5:00 PM BINDER STRIPPER MACHINE Gender Identity Female 02/12/2020 1:12 PM CDT Sexual Orientation Straight 02/12/2020 1: 12 PM CDT documented as of this encounter Last Filed Vital Signs Vital Sign Reading Time Taken Comments Blood Pressure - - Pulse - - Temperature - - Respiratory Rate - - Oxygen Saturation - - Inhaled Oxygen Concentration - - Weight - - Height 166 cm (5' 5.35) 05/05/2024 12:35 PM CDT Body Mass Index - - documented in this encounter Progress Notes * Shea Robledo, [place], [place] - 05/05/2024 12:30 PM CDT REASON FOR VISIT: Medical Nutrition Therapy for weight management. Referred by: Rose Mary Perkins APRN, C.N.P., D.N.P. PRESENT FOR VISIT: Patient was seen alone for today's visit. NUTRITION ASSESSMENT: Typical meal pattern/daily food intake: Breakfast: not hungry Lunch: eats small amounts while she is working, reports her lunch to be a medium size amount Supper: Full meal as this is the family meal Bedtime Snack: occasionally around 8 pm she has a snack Beverages: a lot of coffee, some water. Food preparation/grocery shopping: she makes meals for the family. Additional information pertinent to visit: Patient is currently in the Preparation stage of Behavior Change. She is looking at starting a weight loss medication as she reports she can lose and gain weight very quickly but can't maintain keeping it off. 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 Supplements/pertinent medications: per EMR, MVI daily Past medical history: reviewed and noted ANTHROPOMETRICS Weight: (no weight today) WEIGHT HISTORY: Wt Readings from Last 6 Encounters: 03/19/24 80.4 kg 10/31/23 84.4 kg 08/22/23 82.5 kg 04/12/23 80.9 kg 03/13/22 70.7 kg 02/09/22 69.9 kg ESTIMATED NEEDS: Calculated Energy Needs Using Equations Height: 166 cm Not addressed today PERTINENT LABS: not applicable SOCIAL HISTORY: Living arrangement: Lives with her daughter and significant other. Learning barriers: none NUTRITION DIAGNOSIS: Other (comment) (Obesity) related to skipping meals, predicted suboptimal protein intake as evidenced by reported intake and desire for weight loss NUTRITION INTERVENTION: Interventions: Nutrition education, Nutrition counseling Reviewed medical nutrition therapy for weight management at length including energy/calorie balance, plate method and recommended portion sizes, timing and consistency of meals and snacks, meal and snack examples, behavior change strategies, beverages, and physical activity. Talked about impact of skipping breakfast and how this can negatively impact her metabolism and energy intake at the very end of day. Talked about importance of getting enough protein in a day as well and reviewed her individual protein needs. Handouts Provided: Increasing protein in your diet MONITORING AND EVALUATION: Nutrition Indicator Indicator/Desired Outcome: Patient desired weight loss Patient Goal(s): 1. Aim for roughly 80-85 grams of protein per day, see handout for ideas 2. Can use [place] [employer] website for recipes- heart.org 3. Encourage eating something small within 60-90 minutes of waking up to help with metabolism and energy source for your body FOLLOW UP PLAN: 1. Patient is provided with RDN's contact information and encouraged to call or send message via Patient Portal with questions or concerns. 2. Encouraged patient to follow up per request. Total face to face time with patient was 60 Minutes MNT, 4 units documented in this encounter Plan of Treatment Upcoming Encounters Date Type Department Care Team (Late st Contact Info) Description 06/23/2024 11:00 AM BINDER STRIPPER MACHINE Office Visit Department of Otorhinolaryngology in [place], [place] [address] [phone] Leena Cruz P.A.-C. [address] [place] [phone] 06/25/2024 1:00 PM BINDER STRIPPER MACHINE Appointment Department of Radiology in [place], [place] [address] [place] [phone] Charles Price D.P.M. [address] [place] [phone] documented as of this encounter Visit Diagnoses Diagnosis Overweight Body Mass Index 25-29.9 Adult- Primary Fatigue documented in this encounter Additional Health Concerns Assessment Noted Time PHQ-9 Depression Total Score: 5 03/11/20 24 2:54 PM CDT documented as of this encounter Care Teams Complaint Inspector Relationship Specialty Start Date End Date Delroy-Rose Mary Guidry APRN, C.N.P., D.N.P. [address] [place] [phone] PCP - General 01/07/23 documented as of this encounter
--- OUTSIDE RECORDS SUMMARY | 2024-06-19 00:24 | XMS_ITS | Encounter Summary ---
Author Organization [facility] Address [address] [place] [address] Care Team Providers Care Attendant Lodging Facilities Name Role Phone Rose Mary Perkins APRN, C.N.P., D.N.P. P [facility] Care Provider Encounter Details Date Type Department Care Team (Late st Contact Info) Description 06/08/2024 Clinical Communication Department of Family Medicine, [facility], in [place] [address] [place] [phone] Rose Mary Perkins APRN, C.N.P., D.N.P. [address], [place] [address] Social History Tobacco Use Types Packs/Day Years Used Date Smoking Tobacco: Light Smoker Cigarettes 0.5 6 Smokeless Tobacco: Never Alcohol Use Standard Drinks/Week Comments No 0 (1 standard drink = 0.6 oz pur e alcohol) [facility] Utilities Answer Date Recorded In the past 12 months has e [employer], gas, oil, or water [employer] threatened to shut off services in your [...] How often do you attend chur or catholic services? Patient declined 11/06/2021 Do you belong to any clubs o r organizations such as episcopal groups, unions, fraternal or athletic groups, or [...] Answer Date Recorded PHQ-2 Score 2 03/11/2024 [facility] - [...] your living situation today? I have a [facility] place to live 08/22/2023 Education Answer Date Recorded What is the highest level of school you have completed or the highest degree you have received? Bachelor's degree (e.g., BA, AB, BS) 12/24/2018 Comments No Sex and Gender Information Value Date Recorded Sex Assigned at Female 02/12/2020 1:12 PM CDT Legal Sex Female 5:00 PM SUPERVISOR ELECTRONIC COILS Gender Identity Female 02/12/2020 1:12 PM CDT Sexual Orientation Straight 02/12/2020 1: 12 PM CDT documented as of this encounter Plan of Treatment Upcoming Encounters Date Type Department Care Team (Late st Contact Info) Description 06/23/2024 11:00 AM SUPERVISOR ELECTRONIC COILS Office Visit Department of Otorhinolaryngology in [place], [place] [address], [place] [phone] Leena Cruz P.A.-C. [address] [place] [phone] 06/25/2024 1:00 PM SUPERVISOR ELECTRONIC COILS Appointment Department of Radiology in [place], [place] [address] [place] [phone] Charles Price D.P.M. [address] [place] [phone] documented as of this encounter Visit Diagnoses Not on filedocumented in this encounter Additional Health Concerns Assessment Noted Time PHQ-9 Depression Total Score: 5 03/11/20 24 2:54 PM CDT documented as of this encounter Care Teams Attendant Lodging Facilities Relationship Specialty Start Date End Date Delroy-Rose Mary Guidry APRN, C.N.P., D.N.P. [address] [place] [phone] PCP - General 01/07/23 documented as of this encounter
--- OUTSIDE RECORDS SUMMARY | 2024-06-19 00:24 | XMS_ITS ---
Author Organization [facility] Address [address] [place] [address] Care Team Providers Care Network Lead Name Role Phone Unavailable Unavailable Unavailable Surgery Details Not on file Complications Check Surgery Details section. Procedure Estimated Blood Loss Check Surgery Details section. Procedure Findings Check Surgery Details section. Procedure Specimens Taken Check Surgery Details section.
--- OUTSIDE RECORDS SUMMARY | 2024-06-19 00:24 | XMS_ITS | Encounter Summary ---
Author Organization [facility] Address [address] [place] [address] Care Team Providers Care Circulation Worker Name Role Phone Rose Mary Perkins APRN, C.N.P., D.N.P. P [facility] Care Provider Encounter Details Date Type Department Care Team (Late st Contact Info) Description 06/12/2024 Clinical Communication Department of Radiology in [place], [place] [address] [place] [phone] External, Ordering Provider, Noris Social History Tobacco Use Types Packs/Day Years Used Date Smoking Tobacco: Light Smoker Cigarettes 0.5 6 Smokeless Tobacco: Never Alcohol Use Standard Drinks/Week Comments No 0 (1 standard drink = 0.6 oz pur e alcohol) [facility] Utilities Answer Date Recorded In the past 12 months has [facility] [employer], gas, oil, or water [employer] threatened to shut off services in your [...] often do you attend chur ch or mu-ism services? Patient declined 11/06/2021 Do you belong to any clubs o r organizations such as christianity groups, unions, fraternal or athletic groups, or [...] Answer Date Recorded PHQ-2 Score 2 03/11/2024 [facility] ional Health - Occupational [...] your living situation today? I have a [facility] place to live 08/22/2023 Education Answer Date Recorded What is the highest level of school you have completed or the highest degree you have received? Bachelor's degree (e.g., BA, AB, BS) 12/24/2018 Comments No Sex and Gender Information Value Date Recorded Sex Assigned at Female 02/12/2020 1:12 PM CDT Legal Sex Female 5:00 PM NUT TAPPER Gender Identity Female 02/12/2020 1:12 PM CDT Sexual Orientation Straight 02/12/2020 1: 12 PM CDT documented as of this encounter Plan of Treatment Upcoming Encounters Date Type Department Care Team (Late st Contact Info) Description 06/23/2024 11:00 AM NUT TAPPER Office Visit Department of Otorhinolaryngology in [place], [place] [address] [address] Leena Cruz P.A.-C. [address] [phone] 06/25/2024 1:00 PM NUT TAPPER Appointment Department of Radiology in [place], [place] [address] [address] Charles Price D.P.M. [address] [place] [phone] documented as of this encounter Visit Diagnoses Not on filedocumented in this encounter Additional Health Concerns Assessment Noted Time PHQ-9 Depression Total Score: 5 03/11/20 24 2:54 PM CDT documented as of this encounter Care Teams Circulation Worker Relationship Specialty Start Date End Date Delroy-Rose Mary Guidry APRN, C.N.P., D.N.P. [address] [place] [address] PCP - General 01/07/23 documented as of this encounter
--- OUTSIDE RECORDS SUMMARY | 2024-06-19 00:24 | XMS_ITS | Encounter Summary ---
Author Organization [facility] Address [address] [place] [address] Care Team Providers Care Landscape Account Manager Name Role Phone Rose Mary Perkins APRN, C.N.P., D.N.P. P [facility] Care Provider Reason for Visit * Reason Onset Date Comments Appt Request 06/05/2024 MRI Encounter Details Date Type Department Care Team (Late st Contact Info) Description 06/05/2024 Clinical Communication Department of Family Medicine, [facility], in [place], [place] [address] [place] [address] Rose Mary Perkins APRN, C.N.P., D.N.P. [address], [place] [phone] Appt Request (MRI) Social History Tobacco Use Types Packs/Day Years Used Date Smoking Tobacco: Light Smoker Cigarettes 0.5 6 Smokeless Tobacco: Never Alcohol Use Standard Drinks/Week Comments No 0 (1 standard drink = 0.6 oz pur e alcohol) [facility] Utilities Answer Date Recorded In the [...] week 11/06/2021 How often do you attend [facility] or congregational services? Patient declined 11/06/2021 Do you belong [...] Answer Date Recorded PHQ-2 Score 2 03/11/[address] [facility] - Occupational Stress Questionnaire Answer [...] your living situation today? I have a [facility] place to live 08/22/2023 Education Answer Date Recorded What is the highest level of school you have completed or the highest degree you have received? Bachelor's degree (e.g., BA, AB, BS) 12/24/2018 Comments No Sex and Gender Information Value Date Recorded Sex Assigned at Female 02/12/2020 1:12 PM CDT Legal Sex Female 5:00 PM ACCOUNTING RECONCILIATION CLERK Gender Identity Female 02/12/2020 1:12 PM CDT Sexual Orientation Straight 02/12/2020 1: 12 PM CDT documented as of this encounter Miscellaneous Notes * Telephone Encounter - Yulisa Ramirez R.N. - 06/05/2024 4:40 PM CST Packerhead Machine Operator called patient to clarify. Patient stated that [facility] Ull[facility] wanted an MRI, but has since changed this to an ultrasound. Packerhead Machine Operator notified patient that I seen no orders for this, so this has not been ordered. Patient will call their office and clarify. UNTING RECONCILIATION CLERK documented in this encounter Plan of Treatment Upcoming Encounters Date Type Department Care Team (Late st Contact Info) Description 06/23/2024 11:00 AM ACCOUNTING RECONCILIATION CLERK Office Visit Department of Otorhinolaryngology in [place], [place] [address] [place] [phone] Leena Cruz P.A.-C. [address] [place] [phone] 06/25/2024 1:00 PM ACCOUNTING RECONCILIATION CLERK Appointment Department of Radiology in [place], [place] [address] [phone] Charles Price D.P.M. [address] [place] [phone] documented as of this encounter Visit Diagnoses Not on filedocumented in this encounter Additional Health Concerns Assessment Noted Time PHQ-9 Depression Total Score: 5 03/11/20 24 2:54 PM CDT documented as of this encounter Care Teams Landscape Account Manager Relationship Specialty Start Date End Date Delroy-Rose Mary Guidry APRN, C.N.P., D.N.P. [address] [place] [phone] PCP - General 01/07/23 documented as of this encounter
--- OUTSIDE RECORDS SUMMARY | 2024-06-19 00:24 | XMS_ITS | Encounter Summary ---
Author Organization [facility] Address [address] [place] [address] Care Team Providers Care Regional Ehs Manager Name Role Phone Rose Mary Perkins APRN, C.N.P., D.N.P. P [facility] Care Provider Reason for Visit * Reason Onset Date Comments Med Question 05/05/2024 Encounter Details Date Type Department Care Team (Late st Contact Info) Description 05/05/2024 Clinical Communication Department of Family Medicine, [facility], in [place], [place] [address] [place] [phone] Rose Mary Perkins APRN, C.N.P., D.N.P. [address], [place] [phone] Med Question Social History Tobacco Use Types Packs/Day Years Used Date Smoking Tobacco: Light Smoker Cigarettes 0.5 6 Smokeless Tobacco: Never Alcohol Use Standard Drinks/Week Comments No 0 (1 standard drink = 0.6 oz pur e alcohol) [facility] Utilities Answer Date Recorded In [...] How often do you attend chur or yarsani services? Patient declined 11/06/2021 Do you belong to any clubs o r organizations such as bahai groups, unions, fraternal or athletic groups, or [...] Answer Date Recorded PHQ-2 Score 2 03/11/2024 [facility] of Occupat ional [...] PM CDT Legal Sex Female 5:00 PM MANAGEMENT ASSOCIATE Gender Identity Female 02/12/2020 1:12 PM CDT Sexual Orientation Straight 02/12/2020 1: 12 PM CDT documented as of this encounter Plan of Treatment Upcoming Encounters Date Type Department Care Team (Late st Contact Info) Description 06/23/2024 11:00 AM MANAGEMENT ASSOCIATE Office Visit Department of Otorhinolaryngology in [place], [place] [address], [place] [phone] Leena Cruz P.A.-C. [address] [place] [phone] 06/25/2024 1:00 PM MANAGEMENT ASSOCIATE Appointment Department of Radiology in [place], [place] [address], [place] [phone] Charles Price D.P.M. [address] [place] [phone] documented as of this encounter Visit Diagnoses Not on filedocumented in this encounter Additional Health Concerns Assessment Noted Time PHQ-9 Depression Total Score: 5 03/11/20 24 2:54 PM CDT documented as of this encounter Care Teams Regional Ehs Manager Relationship Specialty Start Date End Date Delroy-Rose Mary Guidry APRN, C.N.P., D.N.P. [address], [place] [phone] PCP - General 01/07/23 documented as of this encounter
--- OUTSIDE RECORDS SUMMARY | 2024-06-19 00:24 | XMS_ITS | Referral Summary ---
Author Organization [facility] Address [address] [place] [address] Care Team Providers Care Sales Professional Bilingual Name Role Phone Rose Mary Perkins APRN, C.N.P., D.N.P. P [facility] Care Provider Source Comments Patient records contain information from all sites at [facility]. For routine questions regarding patient records, call [phone] during business hours, M-F 8:00 AM - 5:00 PM Central Time. Record requests for emergency care only can be directed to [phone] at any time.[facility] Encounters Date Type Department Care Team Description 06/12/2024 Clinical Communication Department of Radiology in [place], [place] [address] [place] [address] External, Ordering Provider, MCarissa 06/08/2024 Clinical Communication Department of [facility], [facility], in [address] [phone] Rose Mary Perkins APRN, C.N.PGenet, D.N.P. 06/05/2024 Clinical Communication Department of [facility], [facility], in [address] [phone] Rose Mary Perkins APRN C.N.P., D.N.P. Appt Request (MRI) 06/03/2024 9:30 AM TRACK GRINDER OPERATOR Office Visit Department of Family [facility], [facility], in [place], [place] [address] [place] [address] Rose Mary Perkins APRN C.N.P., D.N.P. Preoperative Exam (Primary Dx); Pain Big Great Toe Right 05/05/2024 Clinical Communication Department of Family Medicine, [facility], in [place], [place] [address] [place] [address] Rose Mary Perkins APRN C.N.P., D.N.P. Med Question 05/05/2024 12:30 PM CDT Clinical Support Department of Nutrition in [address] [phone] Rose Mary Perkins APRN, C.N.P., D.N.P. Shea Robledo, BETTINAN, LD Overweight Body Mass Index 25-29.9 Adult (Primary Dx); Fatigue 04/07/2024 Clinical Communication Department of Otorhinolaryngology in [address] [phone] Jayden Rowell M.D. SURGERY DATE 04/06/2024 4:00 PM CDT Virtual Visit Department of Otorhinolaryngology in [address] [phone] eLena Cruz P.A.-CGenet Obstruction Nasal (Primary Dx); Hypertrophy Nasal Turbinate; Deviation Nasal Septal; Sinusitis Chronic 04/03/2024 10:11 AM CDT - 04/03/2024 11:59 PM CDT Hospital Encounter Department of Radiology in [place], [place] [address] [place] [phone] Leena Cruz P.A.-CGenet Obstruction Nasal Discharge Disposition: Home or Self Care 03/31/2024 Clinical Communication Department of Otorhinolaryngology in [address] [phone] Leena Cruz P.A.-C. from Last 3 Months Allergies Active Allergy [...] consistent with [facility]wk [facility] [place]'s provider: Jane OB education completed. Pre-reg completed at [facility]. FOB involved- NO- MOM AND SISTER FOR [...] NOS 09/15/2012 05/13/2019 Overview (12/04/2016): Asthma, Unspecified Immunizations Name Administration Dates Next [...] = 0.6 oz pur e alcohol) [facility] [employer] Reports[employer] Answer Date Recorded In the past 12 months has e [employer], gas, oil, or water [employer] threatened to shut off services in your [...] How often do you attend chur or buddhism services? Patient declined 11/06/2021 Do you belong to any clubs o r organizations such as amish groups, unions, fraternal or athletic groups, or [...] Answer Date Recorded PHQ-2 Score 2 03/11/2024 [facility] Occupat ional [facility] - Occupational Stress Questionnaire Answer Date [...] your living situation today? I have a [facility] place to live 08/22/2023 Education Answer Date Recorded What is the highest level of school you have completed or the highest degree you have received? Bachelor's degree (e.g., BA, AB, BS) 12/24/2018 Comments No Sex and Gender Information Value Date Recorded Sex Assigned at Female 02/12/2020 1:12 PM CDT Legal Sex Female 5:00 PM TRACK GRINDER OPERATOR Gender Identity Female 02/12/2020 1:12 PM CDT Sexual Orientation Straight 02/12/2020 1: 12 PM CDT Last Filed Vital Signs Vital Sign Reading Time Taken Comments Blood Pressure 113/77 06/03/2024 9:27 AM TRACK GRINDER OPERATOR Pulse 81 06/03/2024 9:27 AM TRACK GRINDER OPERATOR Temperature 35.8 C (96.4 F) 06/03/2024 9:27 AM TRACK GRINDER OPERATOR Respiratory Rate 18 06/03/2024 9:27 AM TRACK GRINDER OPERATOR Oxygen Saturation 97% 06/03/2024 9:27 AM TRACK GRINDER OPERATOR Inhaled Oxygen Concentration - - Weight 81.8 kg (180 lb 3.6 oz) 06/03/2024 9:27 A M TRACK GRINDER OPERATOR Height 166 cm (5' 5.35) 06/03/2024 9:27 AM TRACK GRINDER OPERATOR Body Mass Index 29.67 06/03/2024 9:27 AM TRACK GRINDER OPERATOR Plan of Treatment Upcoming Encounters Date Type Department Care Team (Late st Contact Info) Description 06/23/2024 11:00 AM TRACK GRINDER OPERATOR Office Visit Department of Otorhinolaryngology in [place], [place] [address] [place] [phone] Leena Cruz P.A.-C. [address] [place] [phone] 06/25/2024 1:00 PM TRACK GRINDER OPERATOR Appointment Department of Radiology in [place], [place] [address], [place] [phone] Charles Price D.P.M. [address] [place] [address] Medical Devices Implanted Type Area Habitat Management Coordinator Device Identifier Shelf Expiration Date Model / Serial / Lot Hardware E.G. Pins/Screws/Ro ds Hardware e.g. pins/screws/ rods Right: Foot Procedures Procedure Name Priority Date/Time Associated Diagnosis Comments CT SINUSES WITHOUT IV CONTRAST RAD - Routine (most inpatients and all outpatients) 04/03/2024 10:24 AM CDT Obstruction Nasal HPV WITH GENOTYPING, PCR, THINPREP Routine 06/02/2021 10:06 AM TRACK GRINDER OPERATOR HIV-1 P24 AG, HIV-1/2 AB ,P Routine 05/20/2018 12:40 PM TRACK GRINDER OPERATOR Examination Test With Positive Result HCV AB SCRN W/REFLEX TO HCV PCR, S Routine 11/03/2015 3:08 PM CDT from Last 3 Months or Most Recently Relevant to Health Maintenance Results * CT Sinuses without IV Contrast (04/03/2024 10:24 AM CDT) Anatomical Region Laterality Modality Head, Neuroradiology [facility] , Neuroradiology [facility], Neuroradiology FLA LOS N/A Computed Tomography 04/03/2024 [...] with Genotyping, PCR, ThinPrep (06/02/2021 10:06 AM TRACK GRINDER OPERATOR) HPV with Genotyping, ThinPrep, PCR Negative Negative 06/05/2021 6:05 PM TRACK GRINDER OPERATOR MKTO Comment: Negative for high risk HPV by nucleic acid amplification. The following high risk HPV types were not detected: 16, 18, 31, 33, 35, 39, 45, 51, 52, 56, 58, 59, 66, and 68 Varies 06/02/2021 10:0 6 AM TRACK GRINDER OPERATOR 06/05/2021 6:51 AM TRACK GRINDER OPERATOR us Cyrus Parker M.D. LAB MICROBIOLOGY - GENERAL O RDERABLES Final Result [facility] [address] [place] [address], [facility] MKTO [facility] in [address] [address] * HIV-1 p24 Ag, HIV-1/2 Ab ,P (05/20/2018 12:40 PM TRACK GRINDER OPERATOR) HIV Ag/Ab Scrn, P Negative Negative 05/21/2018 1:[address] [facility] Comment: Negative result does not rule out HIV infection. If exposure to HIV infection occurred <14 days ago, contact the laboratory to request addition of HIV-1 RNA detection / quantification test. HIV-1 p24 Ag Scrn, P Negative Negative 05/21/2018 1:55 PM TRACK GRINDER OPERATOR [facility] Comment: Negative result does not rule out HIV infection. If exposure to HIV infection occurred <14 days ago, contact the laboratory to request addition of HIV-1 RNA detection / quantification test. HIV-1 Ab Scrn, P Negative Negative 05/21/2018 1:55 PM TRACK GRINDER OPERATOR [facility] Comment: Negative result does not rule out HIV infection. If exposure to HIV infection occurred <14 days ago, contact the laboratory to request addition of HIV-1 RNA detection / quantification test. HIV-2 Ab Scrn, P Negative Negative 05/21/2018 1:55 PM TRACK GRINDER OPERATOR [facility] Comment: Negative result does not rule out HIV infection. If exposure to HIV infection occurred <14 days ago, contact the laboratory to request addition of HIV-1 RNA detection / quantification test. Blood (Blood, Venous) 05/20/2018 12:40 PM TRACK GRINDER OPERATOR 05/21/2018 11:59 AM TRACK GRINDER OPERATOR us Nicol Brady M.D. LAB MICROBIOLOGY - BLOOD ORDERABLES Final Result [facility] [address] [place] [address], [facility] * HCV Ab w/Reflex to HCV PCR, S (medicare) (11/03/2015 3:08 PM CDT) HXHCV Ab [facility] Negative Negative POWERCHART Comment: Gykkxy-ps-ovnejc ratio is <1.00. Test Performed by: [facility] - [address] [address] Branch Office Manager: Santo Hopkins II, M.D., Ph.D. Blood 11/03/2015 3:08 PM CDT us Kimo L Kristin M.D. LAB MICROBIOLOGY - BLOOD O RDERABLES Final Result POWERCHART from Last 3 Months or Most Recently Relevant to Health Maintenance Insurance [employer] Care Teams Sales Professional Bilingual Relationship Specialty Start Date End Date Delroy-Rose Mary Guidry APRN, C.N.P., D.N.P. [address] [place] [address] PCP - General 01/07/23
--- OUTSIDE RECORDS SUMMARY | 2024-06-19 00:24 | XMS_ITS | Encounter Summary ---
Author Organization [facility] Address [address] [place] [address] Care Team Providers Care Sanitary Engineering Teacher Name Role Phone Rose Mary Perkins APRN, C.N.P., D.N.P. P [facility] Care Provider Reason for Referral * Outpatient (Routine) - Authorized Specialty Diagnoses / Procedures Referred By Tayler nesbitt Referred To Contact Diagnoses Pain Big Great Toe Right Rose Mary Perkins APRN, C.N.P., D.N.P. [address], [place] [address] Phone: tel: fax: [facility], [facility] [address] [place] [address] Phone: tel: Referral ID Status Reason Start Date Expiration Date Visits Requested Visits Authorized [id number] Authorized No access/unsa tisfactory access 06/03/2024 12/03/2025 1 1 STIAN SCIENCE NURSE Reason for Visit * Reason Comments Pre-op Exam Deviated septum in [place] on 07/08/24 Encounter Details Date Type Department Care Team (Late st Contact Info) Description 06/03/2024 9:30 AM CHRISTIAN SCIENCE NURSE Office Visit Department of Family Medicine, [facility], in [place] [address] [place] [phone] Rose Mary Perkins APRN, C.N.P., D.N.P. [address] [phone] Preoperative Exam (Primary Dx); Pain Big Great Toe Right Social History Tobacco Use Types Packs/Day Years Used Date Smoking Tobacco: Light Smoker Cigarettes 0.5 6 Smokeless Tobacco: Never Tobacco Cessation:Ready to Q uit: Not Asked; Counseling Given: Yes Alcohol Use Standard Drinks/Week Comments No 0 (1 standard drink = 0.6 oz pur e alcohol) [facility] [employer] Answer Date Recorded In the past 12 months has e [employer], gas, oil, or water [employer] threatened to shut off services in your [...] week 11/06/2021 How often do you attend [facility] or shinto services? Patient declined 11/06/2021 Do you belong to any clubs o r organizations such as zoroastrian groups, unions, fraternal or athletic groups, or [...] Answer Date Recorded PHQ-2 Score 2 03/11/2024 [facility] of Occupat ional Health - [...] your living situation today? I have a [facility] place to live 08/22/2023 Education Answer Date Recorded What is the highest level of school you have completed or the highest degree you have received? Bachelor's degree (e.g., BA, AB, BS) 12/24/2018 Comments No Sex and Gender Information Value Date Recorded Sex Assigned at Female 02/12/2020 1:12 PM CDT Legal Sex Female 5:00 PM CHRISTIAN SCIENCE NURSE Gender Identity Female 02/12/2020 1:12 PM CDT Sexual Orientation Straight 02/12/2020 1: 12 PM CDT documented as of this encounter Last Filed Vital Signs Vital Sign Reading Time Taken Comments Blood Pressure 113/77 06/03/2024 9:27 AM CHRISTIAN SCIENCE NURSE Pulse 81 06/03/2024 9:27 AM CHRISTIAN SCIENCE NURSE Temperature 35.8 C (96.4 F) 06/03/2024 9:27 AM CHRISTIAN SCIENCE NURSE Respiratory Rate 18 06/03/2024 9:27 AM CHRISTIAN SCIENCE NURSE Oxygen Saturation 97% 06/03/2024 9:27 AM CHRISTIAN SCIENCE NURSE Inhaled Oxygen Concentration - - Weight 81.8 kg (180 lb 3.6 oz) 06/03/2024 9:27 A M CHRISTIAN SCIENCE NURSE Height 166 cm (5' 5.35) 06/03/2024 9:27 AM CHRISTIAN SCIENCE NURSE Body Mass Index 29.67 06/03/2024 9:27 AM CHRISTIAN SCIENCE NURSE documented in this encounter H&P Notes * Rose Mary Perkins APRN, C.N.P., D.N.P. - 06/03/2024 9:30 AM CHRISTIAN SCIENCE NURSE SUBJECTIVE PREOPERATIVE HISTORY AND PHYSICAL CHIEF COMPLAINT/REASON FOR VISIT Keily Trivedi is a 34 y.o. female who presents for evaluation of No chief complaint on file.. HISTORY OF PRESENT ILLNESS Keily Trivedi is a 34-year-old female PMH rheumatoid arthritis for which she takes Plaquenil, mild asthma takes albuterol as needed, stress and urge incontinence, depression and anxiety takes 30 mg Celexa and Wellbutrin 150 mg twice daily, nicotine dependence and not ready to quit, presents for preoperative exam for septoplasty as well as left middle and inferior turbinate reduction to be done under general anesthesia by Dr. Jayden Rowell 06/18/2024. Current Outpatient Medications Medication Sig Dispense Refill albuterol 90 mcg/actuation inhaler Inhale 1-2 puffs as needed for wheezing or shortness of breath. 18 g 11 buPROPion (WELLBUTRIN SR) 150 mg 12 hr tablet TAKE 1 TABLET(150 MG) BY MOUTH TWICE DAILY 180 tablet3 citalopram (CeleXA) 10 mg tablet take 1 tablet by mouth every day 90 tablet 3 citalopram (CeleXA) 20 mg tablet TAKE 1 TABLET BY MOUTH DAILY ALONG WITH A 10MG FOR A TOTAL DOSE OF30MG 90 tablet 3 hydroquinone 4 % cream Apply 1 Application topically 2 (two) times a day. Apply to face for 2 months. 28.35 g 1 hydroxychloroquine (PLAQUENIL) 200 mg tablet Take 200 mg by mouth 2 (two) times a day. metroNIDAZOLE (METROCREAM) 0.75 % cream Apply 1 Application topically 2 (two) times a day as needed(rash face). 45 g 3 multivitamin capsule Take 1 capsule by mouth daily. tolterodine (DetroL LA) 4 mg 24 hr capsule TAKE 1 CAPSULE BY MOUTH EVERY 24 HOURS tretinoin (RETIN-A) 0.025 % cream Apply 1 Application topically at bedtime. Apply to face nightly. 45 g 2 Tri-Ina 0.01-4-0.05 % cream APPLY TOPICALLY TO THE AFFECTED AREA OF FACE AT BEDTIME 30 g 1 No current facility-administered medications for this visit. Allergies Allergen Reactions Chlorhexidine Rash REVIEW OF SYSTEMS General: Denies recent fever, weight loss, or extreme fatigue. Eyes: Denies double vision or sudden loss of vision. ENT: Denies sore throat, runny nose, ear pain, or hearing loss. Heart: Denies chest pain or irregular heartbeats. Respiratory: Denies cough, wheezing, or shortness of breath. Digestion: Denies nausea, vomiting, diarrhea, or constipation. Genitourinary: Denies frequent or painful urination. Skin: Denies rash, sores, excessive bruising, or change of a mole. Nerves/Brain: Denies headache, persistent weakness, or numbness. Endocrine: Denies excessive thirst or urination, cold or heat intolerance. Blood: Denies unusual bruising or bleeding, or enlarged lymph nodes. AANA PREANESTHESIA QUESTIONS: -Have you recently had a cold or the flu? no -Are you allergic to latex (rubber) products? no -Have you experienced chest pain? no -Do you have a heart condition?no -Do you have hypertension (high blood pressure)? no -Do you experience shortness of breath? no -Do you have asthma, bronchitis, obstructive sleep apnea? no -Do you snore loudly or have any other breathing problems? no -Do you (or did you) smoke? Half a pack of cigarettes per day -Do you consume alcohol?moderation infrequently. -Do you take or have you taken recreational drugs? no -Have you taken cortisone (steroids) in the last 6 months? no -Do you take any nonsteroidal or anti-inflammatory drugs (NSAIDS) such as aspirin, ibuprofen, naproxen? no - Bleeding or clotting disorders:no -Do you take herbal supplements, or complementary or alternative medicines? no -Do you have diabetes? no -Have you had hepatitis, liver disease, or jaundice?no -Do you have a thyroid condition? no -Do you have or have you ever had kidney disease? no -Do you have ulcers or other stomach disorders? no -Do you have a hiatal hernia? no -Do you have back or neck pain? no -Do you have numbness, weakness, or paralysis of your extremities? no -Do you have any muscle or nerve disease? no -Do you or any of your family have sickle cell trait? no -Have you or any blood relatives had difficulties with anesthesia? no -Do you have bleeding problems? no -Do you have loose, chipped or false teeth, bridge work, or oral piercings (such as studs or rings)in your tongue or lip? no -Do you wear contact lenses? -Have you ever received a blood transfusion? no -(Women) Are you ? History of tubal ligation - Pulmonary: . - History Bacterial Endocarditis: no -Mallampati Class: III large tongue -Infection/Immunosuppression: History of rheumatoid arthritis and currently takes Plaquenil. -History of MRSA skin infections: no ASA PS CLASSIFICATION: II MEDICAL HISTORY Patient Active Problem List Diagnosis Major Depressive Disorder, Recurrent, Unspecified (HCC) Arthritis Rheumatoid (HCC) Anxiety Generalized Disorder Asthma Mild Intermittent (HCC) Sleep Disorder Nicotine Dependence Cigarettes Incontinence Urinary Stress And Urge Frequency Urinary Past Surgical History: Procedure Laterality Date SALPINGECTOMY 02/01/2020 BL Social History Tobacco Use Smoking status: Light Smoker Current packs/day: 0.50 Average packs/day: 0.5 packs/day for 6.0 years (3.0 ttl pk-yrs) Types: Cigarettes Smokeless tobacco: Never Vaping Use Vaping status: never used Substance Use Topics Alcohol use: No Drug use: No Family History Problem Relation Name Age of Onset Skin cancer Grandfather Asthma Mother Diana trivedi Asthma Brother Lucius trivedi Learning disorder Brother Lucius trivedi ADD Brother Lucius trivedi Depression Brother Lucius trivedi Ovarian cancer Maternal Grandmother Katiana martines 70s Osteoporosis Maternal Grandmother Katiana morenoderhus Arthritis Maternal Grandmother Katiana morenodersongs Ovarian cancer Other maternal great aunt 60s Lung cancer Paternal Grandfather [place] Stroke Paternal Grandmother Sheree barkley Depression Paternal Grandmother Sheree barkley Alcohol abuse Father Maurisio trivedi Anxiety disorder Father Maurisio trivedi Depression Father Maurisio trivedi Stroke Maternal Grandfather deloris monet ADD Sister maida trivedi OBJECTIVE There were no vitals filed for this visit. There is no height or weight on file to calculate BMI. PHYSICAL EXAMINATION Constitutional Appearance: Normal appearance. HENT Head: Normocephalic and atraumatic. Mouth/Throat: Mouth: Mucous membranes are moist. Pharynx: Oropharynx is clear. Eyes Pupils: Pupils are equal, round, and reactive to light. Cardiovascular Rate and Rhythm: Normal rate and regular rhythm. Heart sounds: Normal heart sounds, S1 normal and S2 normal. Pulmonary Effort: Pulmonary effort is normal. Breath sounds: Normal breath sounds. Abdominal General: Bowel sounds are normal. Musculoskeletal General: Normal range of motion. Skin General: Skin is warm and dry. Capillary Refill: Capillary refill takes less than 2 seconds. Neurological General: No focal deficit present. Mental Status: She is alert and oriented to person, place, and time. Psychiatric Mood and Affect: Mood normal. Behavior: Behavior normal. ASSESSMENT / PLAN #1 Preoperative exam - This patient is medically optimized for the above-mentioned procedure. - She is capable of achieving greater than 4 METS without cardiopulmonary symptoms. - Advised no aspirin-containing products 7 days prior to procedure. - Follow-up as needed. All questions answered and Keily agreed with the plan. Rose Mary Perkins APRN, C.N.Claudia, D.N.P. STIAN SCIENCE NURSE STIAN SCIENCE NURSE documented in this encounter Plan of Treatment Upcoming Encounters Date Type Department Care Team (Late st Contact Info) Description 06/23/2024 11:00 AM CHRISTIAN SCIENCE NURSE Office Visit Department of Otorhinolaryngology in [place], [place] [address] [phone] Leena Cruz P.A.-C. [address] [phone] 06/25/2024 1:00 PM CHRISTIAN SCIENCE NURSE Appointment Department of Radiology in [place], [place] [address] [phone] Charles Price D.P.MGenet [address] [place] [phone] documented as of this encounter Visit Diagnoses Diagnosis Preoperative Exam- Primary Pain Big Great Toe Right documented in this encounter Additional Health Concerns Assessment Noted Time PHQ-9 Depression Total Score: 5 03/11/20 24 2:54 PM CDT documented as of this encounter Care Teams Sanitary Engineering Teacher Relationship Specialty Start Date End Date Rose Mary Perkins APRN, C.N.PGenet, D.N.P. [address] [phone] PCP - General 01/07/23 documented as of this encounter
--- OUTSIDE RECORDS SUMMARY | 2024-06-19 00:25 | XMS_ITS | Encounter Summary ---
Author Organization [facility] Address [address] [place] [address] Care Team Providers Care Furniture Manager Name Role Phone Rose Mary Perkins APRN, C.N.PGenet, D.N.P. P [facility] Care Provider Reason for Referral * Outpatient (Routine) - Authorized Specialty Diagnoses / Procedures Referred By Contac t Referred To Contact Otorhinolaryngology Leena Cruz P.A.-C. [address], [place] [address] Phone: tel: fax: [facility] Region Referral ID Status Reason Start Date Expiration Date V isits Requested Visits Authorized [id number] Authorized 04/06/2024 10/06/2025 1 1 Scheduling Instructions 3 week postop check * Outpatient (Routine) - Authorized Specialty Diagnoses / Procedures Referred By Contac t Referred To Contact Otorhinolaryngology Leena Cruz P.A.-C. [address], [place] [address] Phone: tel: fax: [facility] Region Referral ID Status Reason Start Date Expiration Date V isits Requested Visits Authorized [id number] Authorized 04/06/2024 10/06/2025 1 1 Scheduling Instructions Please schedule 5 days after surgery * Outpatient (Routine) - Authorized Specialty Diagnoses / Procedures Referred By Tayler nesbitt Referred To Contact Family Medicine Diagnoses Obstruction Nasal Hypertrophy Nasal Turbinate Deviation Nasal Septal Sinusitis Chronic Leena Cruz P.A.-C. [address] [place] [phone] Phone: tel: fax: [facility] Region Referral ID Status Reason Start Date Expiration Date V isits Requested Visits Authorized [id number] Authorized 04/06/2024 10/06/2025 1 1 Encounter Details Date Type Department Care Team (Latest Contact Info) Description 04/06/2024 4:00 PM CDT Virtual Visit Department of Otorhinolaryngology in [address] [phone] Leena Cruz P.A.-Keegan [address] [place] [phone] Obstruction Nasal (Primary Dx); Hypertrophy Nasal Turbinate; Deviation Nasal Septal; Sinusitis Chronic Social History Tobacco Use Types Packs/Day Years Used Date Smoking Tobacco: Light Smoker Cigarettes 0.5 6 Smokeless Tobacco: Never Alcohol Use Standard Drinks/Week Comments No 0 (1 standard drink = 0.6 oz pur e alcohol) [facility] Utilities Answer Date Recorded In the past [address] [facility] [employer], gas, oil, or water [employer] threatened to shut off services in your [...] often do you attend chur ch or yazidi services? Patient declined 11/06/2021 Do you belong to any clubs o r organizations such as scientology groups, unions, fraCampusTap or athletic groups, or school groups? No [...] your living situation today? I have a [facility] place to live 08/22/2023 Education Answer Date Recorded What is the highest level of school you have completed or the highest degree you have received? Bachelor's degree (e.g., BA, AB, BS) 12/24/2018 Comments No Sex and Gender Information Value Date Recorded Sex Assigned at Female 02/12/2020 1:12 PM CDT Legal Sex Female 5:00 PM FOOD CROPS FARM HAND Gender Identity Female 02/12/2020 1:12 PM CDT Sexual Orientation Straight 02/12/2020 1: 12 PM CDT documented as of this encounter Progress Notes * Leena Cruz P.A.-C. - 04/06/2024 4:00 PM CDT SUBJECTIVE CHIEF COMPLAINT/REASON FOR VISIT Follow up sinus CT, nasal obstruction HISTORY OF PRESENT ILLNESS Keily Trivedi is present via phone today to discuss her recent sinus CT and details of nasal surgery. For as long as she can remember patient has never been able to breathe well through either side of her nose, the right is more obstructed than the left. She has tried Flonase for weeks at a time to no avail. She does not have problems with recurrent or chronic sinus pressure, does have some intermittent nasal drainage. No allergic rhinitis. She is interested in nasal surgery to improveher nasal airway. OBJECTIVE Patient is not present today thus physical examination is not repeated. We did review her recent sinus CT which reveals septal deviation to the right as well as left middle and left inferior turbinate hypertrophy. She does have some maxillary disease bilaterally. 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 Discussed continued observation and medical treatment versus surgical intervention. She is interested in proceeding with nasal septoplasty as well as left middle and inferior turbinate reduction. She did have a bit of increase in upper respiratory symptoms at the time the CT which could account for her maxillary symptoms. Given she is not struggling with maxillary pressure sinus infections, we will not proceed with antrostomies. We discussed the above-mentioned procedure in detail including goals, risks, and potential complications. Discussed possibility of septal perforation, abscess, settling of the nasal dorsum, and continued symptoms. Discussed use of septal splints and absorbable packing. She is aware that this is done under general anesthesia and that this low risk procedure will require a preoperative physical. Her questions are answered and she will be awaiting a call from project construction assistant manager. Leena Cruz P.A.-C. documented in this encounter Plan of Treatment Upcoming Encounters Date Type Department Care Team (Late st Contact Info) Description 06/23/2024 11:00 AM FOOD CROPS FARM HAND Office Visit Department of Otorhinolaryngology in [place], [place] [address] [phone] Leena Cruz P.A.-C. [address] [place] [phone] 06/25/2024 1:00 PM FOOD CROPS FARM HAND Appointment Department of Radiology in [place], [place] [address] [phone] Charles Price D.P.M. [address] [facility] [place] [phone] Scheduled Referrals Name Type Priority Associated Diagnoses Order Schedule Primary Care - JULIUS consult (clinic) Outpatient Referral Routine Obstruction Nasal Hypertrophy Nasal Turbinate Deviation Nasal Septal Sinusitis Chronic 1 Occurrences starting 04/06/2024 until 07/06/2025 Otorhinolaryngology Post Op (clinic) Outpatient Referral Routine 1 Occurrences starting 04/06/2024 until 07/06/2025 Otorhinolaryngology Post Op (clinic) Outpatient Referral Routine Expected: 04/27/2024, Expires: 07/06/2025 documented as of this encounter Visit Diagnoses Diagnosis Obstruction Nasal- Primary Hypertrophy Nasal Turbinate Deviation Nasal Septal Sinusitis Chronic documented in this encounter Additional Health Concerns Assessment Noted Time PHQ-9 Depression Total Score: 5 03/11/20 24 2:54 PM CDT documented as of this encounter Care Teams Furniture Manager Relationship Specialty Start Date End Date Delroy-Rose Mary Guidry APRN, C.N.P., D.N.P. [address] [place] [phone] PCP - General 01/07/23 documented as of this encounter
--- OUTSIDE RECORDS SUMMARY | 2024-06-19 00:25 | XMS_ITS | Encounter Summary ---
Author Organization [facility] Address [address] [place] [address] Care Team Providers Care Subway Guard Name Role Phone Rose Mary Perkins APRN, C.N.P., D.N.P. P [facility] Care Provider Reason for Visit * Reason Onset Date Comments SURGERY DATE 04/07/2024 Encounter Details Date Type Department Care Team (Latest Contact Info) Description 04/07/2024 Clinical Communication Department of Otorhinolaryngology in [place], [place] [address] [phone] Jayden Rowell M.D. [address] [phone] SURGERY DATE Social History Tobacco Use Types Packs/Day Years Used Date Smoking Tobacco: Light Smoker Cigarettes 0.5 6 Smokeless Tobacco: Never Alcohol Use Standard Drinks/Week Comments No 0 (1 standard drink = 0.6 oz pur e alcohol) [facility] Utilities Answer Date Recorded In the [...] often do you attend chur ch or pentecostal services? Patient declined 11/06/2021 Do you belong to any clubs o r organizations such as hindu groups, unions, fraternal or athletic groups, or [...] Answer Date Recorded PHQ-2 Score 2 03/11/2024 [facility] of Occupat ional Health - Occupational [...] your living situation today? I have a [facility] place to live 08/22/2023 Education Answer Date Recorded What is the highest level of school you have completed or the highest degree you have received? Bachelor's degree (e.g., BA, AB, BS) 12/24/2018 Comments No Sex and Gender Information Value Date Recorded Sex Assigned at Female 02/12/2020 1:12 PM CDT Legal Sex Female 5:00 PM FERN PICKER Gender Identity Female 02/12/2020 1:12 PM CDT Sexual Orientation Straight 02/12/2020 1: 12 PM CDT documented as of this encounter Plan of Treatment Upcoming Encounters Date Type Department Care Team (Late st Contact Info) Description 06/23/2024 11:00 AM FERN PICKER Office Visit Department of Otorhinolaryngology in [place], [place] [address], [place] [phone] Leena Cruz P.A.-C. [address] [place] [phone] 06/25/2024 1:00 PM FERN PICKER Appointment Department of Radiology in [place], [place] [address] [place] [phone] Charles Price D.P.M. [address] [place] [phone] documented as of this encounter Visit Diagnoses Not on filedocumented in this encounter Additional Health Concerns Assessment Noted Time PHQ-9 Depression Total Score: 5 03/11/20 24 2:54 PM CDT documented as of this encounter Care Teams Subway Guard Relationship Specialty Start Date End Date Delroy-Rose Mary Guidry APRN, C.N.P., D.N.P. [address] [place] [phone] PCP - General 01/07/23 documented as of this encounter
--- OUTSIDE RECORDS SUMMARY | 2024-06-19 00:25 | XMS_ITS | Encounter Summary ---
Author Organization [facility] Address [address] [place] [address] Care Team Providers Care Felt Hat Flanging Operator Name Role Phone Rose Mary Perkins APRN, C.N.P., D.N.P. P [facility] Care Provider Reason for Referral * MRI/CAT/PET Scan (Routine) - Closed Specialty Diagnoses / Procedures Referred By Tayler nesbitt Referred To Contact Radiology Diagnoses Obstruction Nasal Procedures CT Sinuses without IV Contrast Leena Cruz P.A.-C. [address] [place] [phone] Phone: tel: fax: [facility] Region Referral ID Status Reason Start Date Expiration Date Visits Re quested Visits Authorized [id number] Closed 03/10/2024 03/10/2025 1 1 Reason for Visit * MRI/CAT/PET Scan (Routine) - Closed Specialty Diagnoses / Procedures Referred By Tayler nesbitt Referred To Contact Radiology Diagnoses Obstruction Nasal Procedures CT Sinuses without IV Contrast Leena Cruz P.A.-C. [address] [place] [phone] Phone: tel: fax: [facility] Region Referral ID Status Reason Start Date Expiration Date Visits Re quested Visits Authorized [id number] Closed 03/10/2024 03/10/2025 1 1 Encounter Details Date Type Department Care Team (Latest Contact Info) Description 04/03/2024 10:11 AM CDT - 04/03/2024 11:59 PM CDT Hospital Encounter Department of Radiology in [place], [place] [address] [place] [phone] Leena Cruz P.A.-C. [address] [place] [phone] Obstruction Nasal Discharge Disposition: Home or Self Care Social History Tobacco Use Types Packs/Day Years Used Date Smoking Tobacco: Light Smoker Cigarettes 0.5 6 Smokeless Tobacco: Never Alcohol Use Standard Drinks/Week Comments No 0 (1 standard drink = 0.6 oz pur e alcohol) [facility] Utilities Answer Date Recorded In the past 12 months has e [employer], gas, oil, or water [employer] threatened to shut off services in your [...] week 11/06/2021 How often do you attend [facility] or confucianist services? Patient declined 11/06/2021 Do you belong to any clubs o r organizations such as muslim groups, unions, fraternal or athletic groups, or [...] Answer Date Recorded PHQ-2 Score 2 03/11/2024 [facility] - Occupational Stress Questionnaire Answer Date Recorded [...] living situation today? I have a [facility] place to live 08/22/2023 Education Answer Date Recorded What is the highest level of school you have completed or the highest degree you have received? Bachelor's degree (e.g., BA, AB, BS) 12/24/2018 Comments No Sex and Gender Information Value Date Recorded Sex Assigned at Female 02/12/2020 1:12 PM CDT Legal Sex Female 5:00 PM HOUSE NURSE Gender Identity Female 02/12/2020 1:12 PM CDT Sexual Orientation Straight 02/12/2020 1: 12 PM CDT documented as of this encounter Medications at Time of Discharge albuterol 90 mcg/actuation inhalerIndications :Asthma Mild Intermittent (HCC) Inhale 1-2 puffs as needed for wheezing or shortness of breath. 18 g 11 11/06/2021 buPROPion (WELLBUTRIN SR) 150 mg 12 hr tabletIndications: Anxiety Generalized Disorder,Depressed Libido TAKE 1 TABLET(150 MG) BY MOUTH TWICE DAILY 180 tablet 3 08/14/2023 citalopram (CeleXA) 10 mg tablet take 1 tablet by mouth every day 90 tablet 3 10/22/2023 citalopram (CeleXA) 20 mg tabletIndications: Major Depressive Disorder, Recurrent, Unspecified (HCC) TAKE 1 TABLET BY MOUTH DAILY ALONG WITH A 10MG FOR A TOTAL DOSE OF 30MG 90 tablet 3 08/14/2023 hydroquinone 4 % cream Apply 1 Application topically 2 (two) times a day. Apply to face for 2 months. 28.35 g 1 08/15/2023 hydroxychloroquine (PLAQUENIL) 200 mg tablet Take 200 mg by mouth 2 (two) times a day. 05/24/2018 metroNIDAZOLE (METROCREAM) 0.75 % cream Apply 1 Application topically 2 (two) times a day as needed (rash face). 45 g 3 08/14/2023 multivitamin capsule Take 1 capsule by mouth daily. tolterodine (DetroL LA) 4 mg 24 hr capsule TAKE 1 CAPSULE BY MOUTH EVERY 24 HOURS 12/31/2023 tretinoin (RETIN-A) 0.025 % creamIndications:S un Damaged Skin Apply 1 Application topically at bedtime. Apply to face nightly. 45 g 2 08/15/2023 Tri-Ina 0.01-4-0.05 % cream APPLY TOPICALLY TO THE AFFECTED AREA OF FACE AT BEDTIME 30 g 1 11/14/2023 documented as of this encounter Plan of Treatment Upcoming Encounters Date Type Department Care Team (Late st Contact Info) Description 06/23/2024 11:00 AM HOUSE NURSE Office Visit Department of Otorhinolaryngology in [place], [place] [address] [place] [phone] Leena Cruz P.A.-C. [address] [place] [phone] 06/25/2024 1:00 PM HOUSE NURSE Appointment Department of Radiology in [place], [place] [address] [phone] Charles Price D.PGenetMGenet 3 [place] [phone] documented as of this encounter Procedures Procedure Name Priority Date/Time Associated Diagnosis Comments CT SINUSES WITHOUT IV CONTRAST RAD - Routine (most inpatients and all outpatients) 04/03/2024 10:24 AM CDT Obstruction Nasal documented in this encounter Results * CT Sinuses without IV Contrast [...] pronouncedand moderate within the left maxillary sinus. Leena Cruz P.A.-C. IMG CT PROCEDURES Final R esult documented in this encounter Visit Diagnoses Diagnosis Obstruction Nasal documented in this encounter Additional Health Concerns Assessment Noted Time PHQ-9 Depression Total Score: 5 03/11/20 24 2:54 PM CDT documented as of this encounter Care Teams Felt Hat Flanging Operator Relationship Specialty Start Date End Date Delroy-Ros eMary Guidry APRN, C.N.P., D.N.P. [address] [phone] PCP - General 01/07/23 documented as of this encounter
--- OUTSIDE RECORDS SUMMARY | 2024-06-19 00:25 | XMS_ITS | Encounter Summary ---
Author Organization [facility] Address [address] [place] [address] Care Team Providers Care Casting Machine Adjuster Name Role Phone Rose Mary Perkins APRN, C.N.P., D.N.P. P [facility] Care Provider Encounter Details Date Type Department Care Team (Latest Contact Info) Description 03/31/2024 Clinical Communication Department of Otorhinolaryngology in [place], [place] [address] [phone] Leena Cruz P.A.-C. [address] [phone] Social History Tobacco Use Types Packs/Day Years Used Date Smoking Tobacco: Light Smoker Cigarettes 0.5 6 Smokeless Tobacco: Never Alcohol Use Standard Drinks/Week Comments No 0 (1 standard drink = 0.6 oz pur e alcohol) [facility] Utilities Answer Date Recorded In the past 12 months has [facility] [employer], gas, oil, or water [employer] threatened to shut off services in your [...] often do you attend chur ch or holiness services? Patient declined 11/06/2021 Do you belong to any clubs o r organizations such as zoroastrianism groups, unions, [employer]ab [employer] or athletic groups, or school groups? No [...] Date Recorded PHQ-2 Score 2 03/11/2024 [facility] of Occupat ional Health - Occupational Stress [...] your living situation today? I have a [facility] place to live 08/22/2023 Education Answer Date Recorded What is the highest level of school you have completed or the highest degree you have received? Bachelor's degree (e.g., BA, AB, BS) 12/24/2018 Comments No Sex and Gender Information Value Date Recorded Sex Assigned at Female 02/12/2020 1:12 PM CDT Legal Sex Female 5:00 PM PASTRYCOOK Gender Identity Female 02/12/2020 1:12 PM CDT Sexual Orientation Straight 02/12/2020 1: 12 PM CDT documented as of this encounter Miscellaneous Notes * Telephone Encounter - Leena Cruz P.A.-C. - 03/31/2024 1:16 PM CDT Can we convert this to a video visit? Would video visit work for the patient? If not, we can do phone documented in this encounter Plan of Treatment Upcoming Encounters Date Type Department Care Team (Late st Contact Info) Description 06/23/2024 11:00 AM PASTRYCOOK Office Visit Department of Otorhinolaryngology in [place], [place] [address], [place] [phone] Leena Cruz P.A.-C. [address], [place] [phone] 06/25/2024 1:00 PM PASTRYCOOK Appointment Department of Radiology in [place], [place] [address], [place] [phone] Charles Price D[address] [phone] documented as of this encounter Visit Diagnoses Not on filedocumented in this encounter Additional Health Concerns Assessment Noted Time PHQ-9 Depression Total Score: 5 03/11/20 24 2:54 PM CDT documented as of this encounter Care Teams Casting Machine Adjuster Relationship Specialty Start Date End Date Delroy-Rose Mary Guidry APRN, C.N.P., D.N.P. [address], [place] [phone] PCP - General 01/07/23 documented as of this encounter
--- OUTSIDE RECORDS SUMMARY | 2024-06-19 00:25 | XMS_ITS | Encounter Summary ---
Author Organization [facility] Address [address] [place] [address] Care Team Providers Care Event Mgr Name Role Phone Rose Mary Perkins APRN, C.N.P., D.N.P. P [place] Care Provider Encounter Details Date Type Department Care Team (Late st Contact Info) Description 03/19/2024 10:51 AM CDT - 03/19/2024 11:59 PM T Hospital Encounter Department of Laboratory Medicine in [place] [address] [place] [phone] Rose Mary Perkins APRN, C.N.P., D.N.P. [address], [place] [phone] Fatigue Discharge Disposition: Home or Self Care Social History Tobacco Use Types Packs/Day Years Used Date Smoking Tobacco: Light Smoker Cigarettes 0.5 6 Smokeless Tobacco: Never Alcohol Use Standard Drinks/Week Comments No 0 (1 standard drink = 0.6 oz pur e alcohol) [facility] Utilities Answer Date Recorded In the past 12 months has e [employer], gas, oil, or water [employer] threatened to shut off services in your [...] week 11/06/2021 How often do you attend [facility] or spiritism services? Patient declined 11/06/2021 Do you belong to any clubs o r organizations such as pentecostal groups, unions, fraternal or athletic groups, or [...] Answer Date Recorded PHQ-2 Score 2 03/11/2024 [facility] of Occupat ional Health - Occupational [...] your living situation today? I have a [facility] place to live 08/22/2023 Education Answer Date Recorded What is the highest level of school you have completed or the highest degree you have received? Bachelor's degree (e.g., BA, AB, BS) 12/24/2018 Comments No Sex and Gender Information Value Date Recorded Sex Assigned at Female 02/12/2020 1:12 PM CDT Legal Sex Female 5:00 PM DESKTOP PUBLISHING ASSOCIATE Gender Identity Female 02/12/2020 1:12 PM [...] st Contact Info) Description 06/23/2024 11:00 AM DESKTOP PUBLISHING ASSOCIATE Office Visit Department of Otorhinolaryngology in [place], [place] [address] [place] [phone] Leena Cruz P.A.-C. [address], [place] [phone] 06/25/2024 1:00 PM DESKTOP PUBLISHING ASSOCIATE Appointment Department of Radiology in [place], [place] [address], [place] [phone] Charles Price D.P.M. [address] [place] [phone] documented as of this encounter Procedures Procedure Name Priority Date/Time Associated Diagnosis Comments VITAMIN D, IMMUNOASSAY, TOTAL, S Routine 03/19/2024 11:01 AM CDT Fatigue THYROID FUNCTION CASCADE, S Routine 03/19/2024 11:01 AM CDT Fatigue HEMOGLOBIN A1C, B Routine 03/19/2024 11: 01 AM CDT Fatigue VITAMIN B12 ASSAY, S Routine 03/19/2024 11:01 AM CDT Fatigue documented in this encounter Results * Hemoglobin A1c (03/19/2024 11:01 AM CDT) Hemoglobin A1c, B 4.8 4.2 - 5.6 % 03/19/2024 1:45 PM CDT OWAT Blood (Blood, Venous) 03/19/2024 11:01 AM CDT 03/19/2024 12:56 PM CDT Rose Mary Perkins APRN, C.N.P., D.N.P. [place] B BLOOD ADD-ON Final Result [facility] [address] [place] [address], [facility] OWAT [facility] [place] [address] [place] [address] * Vitamin D, Immunoassay, Total, Serum (03/19/2024 11:01 AM CDT) Vitamin D, Immunoassay, Total, S 49 20 - 80 ng/mL 03/20/2024 1:21 AM CDT MKTO Comment: Optimum levels within the healthy population are 20-50, patients with bone disease may benefit from high levels within this range Blood (Blood, Venous) 03/19/2024 11:01 AM CDT 03/20/2024 12:33 AM CDT Rose Mary Perkins APRN, C.N.P., D.N.P. [place] B BLOOD ADD-ON Final Result Performing Organization Address [facility] Co de Phone Number [facility] [address] [place] [address], [facility] MKTO [facility] [place] [address] [place] [address] * Vitamin B12 Assay (03/19/2024 11:01 AM CDT) Vitamin B12 Assay, S 831 232 - 1245 ng/L 03/19/2024 4:46 PM CDT AUST Comment: Biotin has been identified by the email marketer as a potential interfering substance. Higher concentrations of biotin may be found in multivitamins, hair/nail supplements, and workout supplements. If the result does not match clinical observations, repeat testing after patient refrains from the use of supplements for at least 12 hours. Blood (Blood, Venous) 03/19/2024 11:01 AM CDT 03/19/2024 3:36 PM CDT Rose Mary Perkins APRN, C.N.P., D.N.P. [place] B BLOOD ADD-ON Final Result Performing Organization Address [facility]/ZIP Co de Phone Number [facility] [address] [place] [address], [facility] AUST [facility] [address] [place] [address] * Thyroid Function Gr[place]gs (03/19/2024 11:01 AM CDT) TSH, Sensitive 1.8 0.3 - 4.2 mIU/L 03/19/2024 1:38 PM CDT OWAT Blood (Blood, Venous) 03/19/2024 11:01 AM CDT 03/19/2024 12:56 PM CDT us Rose Mary Perkisn APRN, C.N.P., D.N.P. [place] B BLOOD ADD-ON Final Result [facility] [address] [place] [address], [place] OWAT [facility] [place] [address] [place] [address] documented in this encounter Visit Diagnoses Diagnosis Fatigue documented in this encounter Additional Health Concerns Assessment Noted Time PHQ-9 Depression Total Score: 5 03/11/20 24 2:54 PM CDT documented as of this encounter Care Teams Event Mgr Relationship Specialty Start Date End Date Rose Mary Perkins APRN, C.N.P., D.N.P. [address] [place] [phone] PCP - General 01/07/23 documented as of this encounter
--- OUTSIDE RECORDS SUMMARY | 2024-06-19 00:26 | XMS_ITS | Encounter Summary ---
Author Organization [facility] Address [address] [place] [address] Care Team Providers Care Sales Executive Insurance Name Role Phone Rose Mary Perkins APRN, C.N.P., D.N.P. [facility] Care Provider Reason for Referral * Outpatient (Routine) - Closed Specialty Diagnoses / Procedures Referred By Contac t Referred To Contact Nutrition Diagnoses Fatigue Rose Mary Perkins APRN, C.N.P., D.N.P. [address], [place] [address] Phone: tel: fax: [facility] Referral ID Status Reason Start Date Expiration Date Visits Re quested Visits Authorized [id number] Closed 03/19/2024 09/18/2025 1 1 Reason for Visit * Reason Comments Other Wt. Management * Appointment Request (Routine) - Closed Specialty Diagnoses / Procedures Referred By Contac t Referred To Contact Family Medicine Referral ID Status Reason Start Date Expiration Date Visits Re quested Visits Authorized [id number] Closed 03/11/2024 03/11/2025 1 1 Encounter Details Date Type Department Care Team (Late st Contact Info) Description 03/19/2024 10:30 AM CDT Office Visit Department of Family Medicine, [facility], in [address] [phone] Rose Mary Perkins APRN, C.N.P., D.N.P. [address] [address] Fatigue (Primary Dx); Counseling Diet Social History Tobacco Use Types Packs/Day Years Used Date Smoking Tobacco: Light Smoker Cigarettes 0.5 6 Smokeless Tobacco: Never Tobacco Cessation:Ready to Q uit: Not Asked; Counseling Given: Not Answered Alcohol Use Standard Drinks/Week Comments No 0 (1 standard drink = 0.6 oz pur e alcohol) [facility] [employer] Answer Date Recorded In the past 12 months has e [employer], gas, oil, or water [employer] threatened to shut off services in your [...] How often do you attend chur or yazdanism services? Patient declined 11/06/2021 Do you belong [...] Answer Date Recorded PHQ-2 Score 2 03/11/2024 [facility] - Occupational Stress Questionnaire Answer Date [...] PM CDT Legal Sex Female 5:00 PM CALL OR CONTACT CENTRE COACH Gender Identity Female 02/12/2020 1:12 PM CDT Sexual Orientation Straight 02/12/2020 1: 12 PM CDT documented as of this encounter Last Filed Vital Signs Vital Sign Reading Time Taken Comments Blood Pressure 114/75 03/19/2024 10:32 AM CDT Pulse 72 03/19/2024 10:32 AM CDT Temperature 35.8 C (96.4 F) 03/19/2024 10:32 AM CDT Respiratory Rate 16 03/19/2024 10:32 AM CDT Oxygen Saturation - - Inhaled Oxygen Concentration - - Weight 80.4 kg (177 lb 5.8 oz) 03/19/2024 10:32 AM CDT Height - - Body Mass Index 29.02 10/31/2023 3:57 PM CDT documented in this encounter Progress Notes * Rose Mary Perkins APRN, C.N.P., D.N.P. - 03/19/2024 10:30 AM CDT SUBJECTIVE CHIEF COMPLAINT / REASON FOR VISIT Keily Trivedi is a 33 y.o. female who presents for evaluation of Other (Wt. Management ). HISTORY OF PRESENT ILLNESS Keily Trivedi is a pleasant 33-year-old female PMH rheumatoid arthritis for which she takes Plaquenil, mild asthma takes albuterol as needed, stress and urge incontinence, recently started Detrol, depression and anxiety takes 30 mg Celexa and Wellbutrin 150 mg twice daily, nicotine dependence and not ready to quit, presents to discuss weight management. Patient currently weighs 176.88 lb and states that this is too much for her. She reports increased fatigue and feeling she has been unable to reduce weight, however has not made any significant lifestyle changes to do so. She reports a history of thyroid issues with her grandmother, aunt and great grandmother in his concerned she may have thyroid issues as well. OBJECTIVE Vitals: 03/19/24 1032 BP: 114/75 BP Location: Left arm Patient Position: Sitting Cuff Size: Large Pulse: 72 Resp: 16 Temp: (!) 35.8 ??C TempSrc: Temporal Weight: 80.4 kg Body mass index is 29.02 kg/m??. PHYSICAL EXAMINATION Constitutional Appearance: Normal appearance. HENT Head: Normocephalic and atraumatic. Cardiovascular Rate and Rhythm: Normal rate and regular rhythm. Abdominal General: Bowel sounds are normal. Musculoskeletal General: Normal range of motion. Neurological General: No focal deficit present. Mental Status: She is alert and oriented to person, place, and time. Psychiatric Mood and Affect: Mood normal. Behavior: Behavior normal. ASSESSMENT / PLAN #1 Fatigue #2 Counseling diet Clinical decision-making: Patient presents with weight concern stating she has been unable to lose weight. BMI 29.02 and weight 80.4 kg, has not made lifestyle changes to decrease weight. Patient is encouraged to engage in regular physical activity-encouraged to engage in at least 150 minutes of moderate activity weekly, reduce carbohydrate intake, eat more fruits and vegetables, fish, chicken, foods closest to their natural forms. We will go ahead and refer to dietitian. For fatigue we will go ahead and check TSH, B12 and vitamin-D. All questions answered and patient voiced understanding and agreed with this plan. Rose Mary Perkins APRN, C.N.P., D.N.P. documented in this encounter Plan of Treatment Upcoming Encounters Date Type Department Care Team (Late st Contact Info) Description 06/23/2024 11:00 AM CALL OR CONTACT CENTRE COACH Office Visit Department of Otorhinolaryngology in [place], [place] [address] [place] [phone] Leena Cruz P.A.-C. [address] [place] [phone] 06/25/2024 1:00 PM CALL OR CONTACT CENTRE COACH Appointment Department of Radiology in [place], [place] [address] [place] [address] Charles Price D.P.M. [address] [place] [phone] Scheduled Referrals Name Type Priority Associated Diagnoses Orde r Schedule Nutrition - General medical nutrition therapy consult (clinic) Outpatient Referral Routine Fatigue Expected: 03/19/2024, Expires: 06/18/2025 documented as of this encounter Results * Hemoglobin A1c (03/19/2024 11:01 AM CDT) Hemoglobin A1c, B 4.8 4.2 - 5.6 % 03/19/2024 1:45 PM CDT OW Blood (Blood, Venous) 03/19/2024 11:01 AM CDT 03/19/2024 12:56 PM CDT Rose Mary Perkins APRN, C.N.P., D.N.P. LA B BLOOD ADD-ON Final Result [facility] [address] [place] [address], [facility] OWAT [facility] in [place] [address] [place] [address] * Vitamin D, Immunoassay, Total, Serum (03/19/2024 11:01 AM CDT) Vitamin D, Immunoassay, Total, S 49 20 - 80 ng/mL 03/20/2024 1:21 AM CDT MKTO Comment: Optimum levels within the healthy population are 20-50, patients with bone disease may benefit from high levels within this range Blood (Blood, Venous) 03/19/2024 11:01 AM CDT 03/20/2024 12:33 AM CDT Ashlee Garcia APRN.N.P., D.N.P. LA B BLOOD ADD-ON Final Result Performing Organization Address [facility]/ZIP Co de Phone Number [facility] [address] [place] [address], [facility] MKTO [facility] in [place] [address] [place] [address] * Vitamin B12 Assay (03/19/2024 11:01 AM CDT) Vitamin B12 Assay, S 831 232 - 1245 ng/L 03/19/2024 4:46 PM CDT AUST Comment: Biotin has been identified by the shipping coordinator as a potential interfering substance. Higher concentrations of biotin may be found in multivitamins, hair/nail supplements, and workout supplements. If the result does not match clinical observations, repeat testing after patient refrains from the use of supplements for at least 12 hours. Blood (Blood, Venous) 03/19/2024 11:01 AM CDT 03/19/2024 3:36 PM CDT Ashlee Garcia APRN.N.P., D.N.P. LA B BLOOD ADD-ON Final Result Performing Organization Address [facility]/ZIP Co de Phone Number [facility] [address] [place] [address], [facility] [address] [facility] [address] [place] [address] * Thyroid Function [place] (03/19/2024 11:01 AM CDT) TSH, Sensitive 1.8 0.3 - 4.2 mIU/L 03/19/2024 1:38 PM CDT OWAT Blood (Blood, Venous) 03/19/2024 11:01 AM CDT 03/19/2024 12:56 PM CDT Rose Mary Perkins APRN C.N.Wes., D.N.P. LA B BLOOD ADD-ON Final Result [facility] [address] [place] [address], [place] OWAT [facility] in [place] [address] [place] [address] documented in this encounter Visit Diagnoses Diagnosis Fatigue- Primary Counseling Diet documented in this encounter Additional Health Concerns Assessment Noted Time PHQ-9 Depression Total Score: 5 03/11/20 24 2:54 PM CDT documented as of this encounter Care Teams Sales Executive Insurance Relationship Specialty Start Date End Date Rose Mary Perkins APRN, C.N.P., D.N.P. [address] [place] [phone] PCP - General 01/07/23 documented as of this encounter
--- OUTSIDE RECORDS SUMMARY | 2024-06-19 00:26 | XMS_ITS | Clinical Summary ---
Author Organization [facility] Address [place], [place] [address] Care Team Providers Care Shredding Floor Equipment Operator Name Role Phone Cyndee Washington MD Unavailable [phone] Pcp, No Primary Care Provider Unavailabl e Allergies Active Allergy Reactions Criticality Noted Date Comments Chlorhexidine Rash 02/12/2020 Medications Medication Sig Dispensed Refills Start Date End Date Status citalopram (CELEXA) 20 mg tablet Take 1.5 tablets by mouth once daily. 0 7 Active albuterol HFA 90 mcg/actuation inhaler Inhale 1-2 Puffs by mouth every 4 hours if needed. 0 Active FA/mv,Ca,iron,min/l ycopene/lut (MULTIVITAL ORAL) Take 1 Tab by mouth once daily. Active buPROPion (WELLBUTRIN SR) 150 mg Sustained-Release tablet Take 150 mg by mouth 2 times daily. 1 Active citalopram (CELEXA) 10 mg tablet Take 10 mg by mouth once daily. 3 Active hydroxychloroquine (PLAQUENIL) 200 mg tabletIndications:P olyarthritis TAKE 1 TABLET(200 MG) BY MOUTH TWICE DAILY 180 Tablet 1 4 Active Tri-Ina 0.01-4-0.05 % cream APPLY TOPICALLY TO THE AFFECTED AREA OF FACE AT BEDTIME 4 Active tolterodine (DETROL LA) 4 mg Extended-Release capsule TAKE 1 CAPSULE BY MOUTH EVERY 24 HOURS Active fluticasone propionate (Flovent HFA) 110 mcg/Actuation inhaler Inhale 2 Puffs by mouth two times daily. As needed. Active fluticasone (50 mcg per actuation) nasal solution (FLONASE) Inhale 2 Sprays into affected nostril(s) once daily. As needed Active tretinoin (RETIN-A) 0.025 % cream Apply 1 Application topically to affected area(s) at bedtime. 4 Active HYDROcodone-acetami nophen (5-325 mg/tablet)Indicatio ns:Post-op pain Take 1 Tablet by mouth every 4 hours if needed for Pain. Max acetaminophen dose: 4000 mg in 24 hrs. 16 Tablet 4 Active ondansetron (ZOFRAN ODT) 8 mg disintegrating tabletIndications:N ausea Place 1 Tablet (8 mg) on the tongue every 8 hours if needed for Nausea/Vomiting. 12 Tablet 4 Active oxyCODONE (ROXICODONE) 5 mg/5 mL solutionIndications :Post-op pain Take 5-10 mL (5-10 mg) by mouth every 4 hours if needed for Pain. 180 mL 4 06/15/20 24 Discontinue d(*Patient states no longer taking) ondansetron (Zofran ODT) 8 mg disintegrating tabletIndications:N ausea Place 1 Tablet (8 mg) on the tongue every 8 hours if needed for Nausea/Vomiting. 12 Tablet 4 06/15/20 24 Discontinue d(*Patient states no longer taking) predniSONE (DELTASONE) 10 mg tabletIndications:M iddle ear effusion, bilateral,Sore throat Take 3 Tablets (30 mg) by mouth once daily with a meal for 3 days. 9 Tablet 4 06/17/20 24 Active Problems Problem Noted Date Diagnosed Date Polyarthralgia 07/23/2019 39 weeks gestation of 12/28/2018 PROM (premature rupture of membranes) 12/28/2018 Mild preeclampsia 12/28/2018 complication before 12/12/2018 Anxiety 12/02/2018 Diarrhea 04/10/2017 Overview (04/30/2017): Colonoscopy 04/2017 normal repeat at age 52 EGD 04/2017 normal , recommend ct Periumbilical abdominal pain 04/10/2017 Incontinence of feces with fecal urgency 017 Recurrent major depressive disorder 10/13/2014 Overview (12/28/2018): Overview: Depression Major Recurrent NOS Asthma 09/15/2012 Overview (12/28/2018): Overview: Asthma, Unspecified Resolved Problems Problem Noted Date Diagnosed Date Resolved Date Arthritis, rheumatoid 05/20/20182019 Encounters Date Type Department Care Team Description 06/18/2024 10:02 AM WAX PATTERN ASSEMBLER Anesthesia Event [facility] [address] [place] [address] See Cai DO 06/18/2024 9:45 AM WAX PATTERN ASSEMBLER - 06/18/2024 11:46 AM WAX PATTERN ASSEMBLER Surgery [facility] [address] [place] [address] Jayden Rowell MD SEPTOPLASTY WITH LEFT MIDDLE AND LEFT INFERIOR TURBINATE REDUCTION 06/18/2024 8:56 AM WAX PATTERN ASSEMBLER - 06/18/2024 2:05 PM WAX PATTERN ASSEMBLER Hospital Encounter [facility] [address] [place] [address] Jayden Rowell MD Post-op pain (Primary Dx); Nausea Discharge Disposition: Home Self Care 06/18/2024 Travel 06/14/2024 2:55 PM WAX PATTERN ASSEMBLER Office Visit [facility] [address] [place] [address] Ana Laura Guthrie NP Neck Pain/problem 06/14/2024 Travel 06/14/2024 Nurse Triage [facility] [address] [facility] [address] [place] [address] Pcp, No face (Face Pain) 05/01/2024 Refill [facility] [address] [facility] [address] [facility] [address] [place] [address] Cyndee Washington MD Refill Request (Hydroxychloroquine ) 04/03/2024 10:13 AM CDT - 04/03/2024 11:59 PM CDT Hospital Encounter [facility] [address] [place] [address] Leena Cruz PA Nasal obstruction 04/03/2024 Travel from Last 3 Months Immunizations Name Administration Dates Next Due DTP 03/09/1998, 3,05/12/1993,11/18,1992 HIB HbOC (HibTITER) 07/05/1993,1992,1991 HPV 9 (Gardasil 9) 03/27/2012,06/27/2011, 011 Hepatitis B (Peds) 07/05/1993,1992, 993 Human Papilloma Virus Vaccine 03/27/2012 ,06/27/2011,03/27/2011,05/17 Influenza Virus, Unspecified 05/13/2019, 04/21/2014,04/30/2013,05/05 Influenza, IIV3 (Age >=3 years) 05/05/20 12,03/27/2012,03/27/2011,05/17 Influenza, IIV4 04/30/2022,,07/05/2020,05/13,04/30/2018,07/12/2017,05/17/2016 Influenza, IIV4 (=>6mos) MDV 06/06/2015 Influenza,CCIIV4 PRESERV [...] Used Date Smoking Tobacco: Every Day Cigarettes Passive Smoke Exposure: Current Smokeless Tobacco: Never Tobacco Cessation:Ready to Q uit: Not Asked; Counseling Given: Not Answered Comments:1/2 PPD Alcohol Use Standard Drinks/Week Comments Yes 0 [...] Ectopic Multiple Livin g Live Births 1 Date Outcome GA Total Labor Labor/2nd/3rd Weight Sex Type Anes PTL Tawana A1 A5 Name Clin 2018 Term 39w 1d 0h 19m 3.54 kg (7 lb 13 oz) F Vag-V acuum Epidur al N Livin g 6 8 Dylan FERNANDES KJ Complications:None Delivery [facility] Last Filed Vital Signs Vital Sign Reading Time Taken Comments Blood Pressure 124/70 06/18/2024 2:00 PM WAX PATTERN ASSEMBLER Pulse 70 06/18/2024 2:00 PM WAX PATTERN ASSEMBLER Temperature 37 C (98.6 F) 06/18/2024 2:00 PM WAX PATTERN ASSEMBLER Respiratory Rate 18 06/18/2024 2:00 PM WAX PATTERN ASSEMBLER Oxygen Saturation 96% 06/18/2024 2:00 PM WAX PATTERN ASSEMBLER Inhaled Oxygen Concentration - - Weight 82.4 kg (181 lb 9.6 oz) 06/18/2024 9:18 A M WAX PATTERN ASSEMBLER Height 166.4 cm (5' 5.51) 11/14/2023 10:59 AM C DT Body Mass Index 29.75 11/14/2023 10:59 AM CDT Plan of Treatment Upcoming Encounters Date Type Department Care Team (Late st Contact Info) Description 11/05/2024 10:30 AM CDT Office Visit [facility] [address] [place] [address] Cyndee Washington MD [address] [place] [address] Health Maintenance Due Date Last Done Comments Depression screening for age 12+ 07/10/2017 07/10/2016 Pap test for age 21-65 02/24/2022 9 (Completed outside of [facility]) COVID-19 vaccine series (2023- season) 2024 Influenza for age 9-49 03/15/2024 2, 05/20/2021, 07/05/2020, Additional history exists BMI (ht and wt on same day) for age 18+ 11/05/2024 11/06/2023, 11/12/2022, 10/25/2020, Additional history exists Tetanus booster 10/15/2028 10/15/2018, 07/2014 (Completed outside of [facility]), 07/10/2005 Tdap Completed 10/15/2018, 07/2014 (Completed outside of [facility]) HIV for age 15-65 Completed 12/27/2018 Hepatitis C screening for age 18-79 Completed 12/27/2018 Pneumococcal series for age 6-64 Aged Out 12/08/2021 No longer eligible based on patient's age to complete this topic Medical Devices Implanted Type Area Visual Supervisor Device Identifier Shelf Expiration Date Model / Serial / Lot Screw Bone 2.5x18mm Mini Headed - [id number] Implanted:Qty: 2 on 04/03/2022 by Charles Price DPM at [facility] Right: Foot [employer] [id number] / / Explanted Type Area Visual Supervisor Device Identifier Shelf Expiration Date Model / Serial / Lot K-Wire [employer] [id number] - [id number] Explanted:Qty: 2 on 04/03/2022 by Charles Price DPM at [facility] Right: Foot [employer] 45- / / Procedures Procedure Name Priority Date/Time Associated Diagnosis Comments ENDOTRACHEAL TUBE Routine 06/18/2024 10: 23 AM WAX PATTERN ASSEMBLER STREP A PCR STAT 06/14/2024 3:53 PM WAX PATTERN ASSEMBLER Sore throat THROAT RAPID STREP A WITH REFLEX STAT 06/14/2024 3:53 PM WAX PATTERN ASSEMBLER Sore throat CT SINUS WO Routine 04/03/2024 10:21 AM CDT Nasal obstruction EXPOSURE (BBF) ANTI HCV STAT 12/27/2018 8:29 AM CDT EXPOSURE (BBF) RAPID HIV STAT 12/27/2018 8:25 AM CDT from Last 3 Months or Most Recently Relevant to Health Maintenance Results * ETT (06/18/2024 10:23 AM WAX PATTERN ASSEMBLER) Narrative Sherley Veras CRNA Student - 06/18/2024 10:23 AM WAX PATTERN ASSEMBLER Sherley Veras CRNA Student 06/18/2024 10:24 AM Procedure: ETT Patient location during procedure: OR ETT Properties Mask Ventilation: easy Final Technique: direct laryngoscopy Type: AMY Location: oral Cuffed: yes Tube Size: 7.0 mm Stylet: yes Laryngoscope Blade: Hinkle Blade Size: 2 Cormack-Lehane Grade View: 2 Insertion Attempts: 1 Placement Verification: auscultation and end tidal CO2 Secured at: 23 Measured From: teeth Difficulty: 0 (not difficult) See Cai DO ANESTHESIA PX NOTE ORDERABLES * STREP A PCR (06/14/2024 3:53 PM WAX PATTERN ASSEMBLER) GROUP A STREP Negative 06/15/2024 2:49 PM WAX PATTERN ASSEMBLER [facility] Throat SPECIMEN FROM THROAT / Unknown Non-Blood / Unknown 06/14/2024 3:53 PM WAX PATTERN ASSEMBLER 06/14/2024 4:15 PM WAX PATTERN ASSEMBLER Ana Laura Guthrie NP MICROBIOLOGY [facility] [address] [place] [address], * THROAT RAPID STREP A WITH REFLEX (06/14/2024 3:53 PM WAX PATTERN ASSEMBLER) STREP A ANTIGEN Negative 06/14/2024 4:15 PM WAX PATTERN ASSEMBLER [facility] Comment:PCR to follow. Throat SPECIMEN FROM THROAT / Unknown Non-Blood / Unknown 06/14/2024 3:53 PM WAX PATTERN ASSEMBLER 06/14/2024 4:03 PM WAX PATTERN ASSEMBLER Ana Laura Guthrie NP MICROBIOLOGY [facility] [address] [place] [address] * CT SINUS WO (04/03/2024 10:21 AM CDT) Anatomical Region Laterality Modality SINUS Computed Tomogra phy Leena Cruz PA CT * Patient Source ANTI HCV (12/27/2018 8:29 AM CDT) HEPATITIS C ANTIBODY Non-React emily Non-React emily 12/28/2018 1:20 PM CDT [facility] Comment:Antibodies to HCV no t detected; does not exclude the possibility of exposure to HCV. Blood BLOOD SPECIMEN / Unknown Add On / Unknown 12/27/2018 8:29 AM CDT 12/28/2018 8:30 AM CDT Marsha Hudson NP SEND OUTS [facility] [address] [place] [address], * Patient Source Rapid HIV - Unknown HIV (12/27/2018 8:25 AM CDT) SOURCE RAPID HIV SCREEN Non-Reacti ve Non-Reacti ve 12/28/2018 8:55 AM CDT [facility] Blood BLOOD SPECIMEN / Unknown Add On / Unknown 12/27/2018 8:25 AM CDT 12/28/2018 8:25 AM CDT Marsha Hudson ASSISTANT IN NURSING SEND OUTS [address] [address] from Last 3 Months or Most Recently Relevant to Health Maintenance Advance Directives * Full Code (Latest Code Status on File) Date Activated Date Inactivated Comments 06/18/2024 7:20 AM 06/18/2024 7:27 PM Question Answer Comments Code Status Discussion: Reviewed Preferences * Full Code Date Activated Date Inactivated Comments 11/14/2023 8:06 AM 11/15/2023 2:33 AM Question Answer Comments Code Status Discussion: Reviewed Preferences * Full Code Date Activated Date Inactivated Comments 04/16/2023 6:01 AM 04/16/2023 11:39 AM Question Answer Comments Code Status Discussion: Reviewed Preferences * Full Code Date Activated Date Inactivated Comments 04/03/2022 5:57 AM 04/03/2022 11:58 AM Question Answer Comments Code Status Discussion: Reviewed Preferences * Full Code Date Activated Date Inactivated Comments 02/01/2020 7:35 AM 02/01/2020 4:10 PM Care Teams Shredding Floor Equipment Operator Relationship Specialty Start Date End Date Pcp, No . PCP - General 04/02/24 Cyndee Washington MD [address] [place] [address] Rheumatology Rheumatology 10/04/16
--- OUTSIDE RECORDS SUMMARY | 2024-06-19 00:26 | XMS_ITS | Encounter Summary ---
Author Organization [facility] Address [address] [place] [address] Care Team Providers Care Lube Technician Name Role Phone Rose Mary Perkins APRN, C.N.PGenet, D.N.P. [facility] Care Provider Reason for Referral * MRI/CAT/PET Scan (Routine) - Closed Specialty Diagnoses / Procedures Referred By Tayler nesbitt Referred To Contact Radiology Diagnoses Obstruction Nasal Procedures CT Sinuses without IV Contrast Leena Cruz P.AGenet-CGenet [address] [place] [address] Phone: tel: fax: [facility] Referral ID Status Reason Start Date Expiration Date Visits Re quested Visits Authorized [id number] Closed 03/10/2024 03/10/2025 1 1 Encounter Details Date Type Department Care Team (Latest Contact Info) Description 03/10/2024 Orders Only Department of Otorhinolaryngology in [place], [place] [address] [place] [address] Leena Cruz P.A.-C. [address] [place] [phone] Obstruction Nasal (Primary Dx) Social History Tobacco Use Types Packs/Day Years Used Date Smoking Tobacco: Light Smoker Cigarettes 0.5 6 Smokeless Tobacco: Never Alcohol Use Standard Drinks/Week Comments No 0 (1 standard drink = 0.6 oz pur e alcohol) [facility] Utilities Answer Date Recorded In the past [...] often do you attend chur ch or church services? Patient declined 11/06/2021 Do you belong to any clubs o r organizations such as orthodox groups, unions, fraternal or athletic groups, or [...] Answer Date Recorded PHQ-2 Score 2 03/11/2024 [facility] of Occupat ional [facility] - Occupational Stress Questionnaire Answer Date [...] PM CDT Legal Sex Female 5:00 PM MAKE UP EDITOR Gender Identity Female 02/12/2020 1:12 PM CDT Sexual Orientation Straight 02/12/2020 1: 12 PM CDT documented as of this encounter Plan of Treatment Upcoming Encounters Date Type Department Care Team (Late st Contact Info) Description 06/23/2024 11:00 AM MAKE UP EDITOR Office Visit Department of Otorhinolaryngology in [place], [place] [address] [place] [phone] Leena Cruz P.A.-C. [address] [phone] 06/25/2024 1:00 PM MAKE UP EDITOR Appointment Department of Radiology in [place], [place] [address] [phone] Charles Price D.P.M. [address] [place] [phone] documented as of this encounter Results * CT Sinuses without IV Contrast (04/03/2024 10:24 AM CDT) Anatomical Region Laterality Modality Head, Neuroradiology [facility] , [facility], [facility]uroradiology [facility] N/A Computed Tomography 04/03/2024 10:2 3 AM [...] and ethmoid sinuses are patent. Medial orbital gonzalze are intact. No acute fracture or osseous [...] in this encounter Visit Diagnoses Diagnosis Obstruction Nasal- Primary Obstruction Nasal documented in this encounter Additional Health Concerns Assessment Noted Time PHQ-9 Depression Total Score: 8 10/31/19 24 4:33 PM CDT documented as of this encounter Care Teams Lube Technician Relationship Specialty Start Date End Date Delroy-Rose Mary Guidry APRN, C.N.P., D.N.P. [address] [place] [phone] PCP - General 01/07/23 documented as of this encounter
[2024-06-19] MEDS: OXYMETAZOLINE 0.05% NASAL SPRAY 1 SPRAY NOSTRIL-B (00:30)
== END 2024-06-19 00:30 | disposition home or self-care (01) ==
LOC: ED 06-19 00:20
PROVIDERS: Emergency Provider Internal Medicine; PCP Nurse Practitioner
DX: J95.830 Postprocedural hemorrhage of a respiratory system organ or structure following a respiratory system procedure (principal); R04.0 Epistaxis
CPT/HCPCS: 30901; 99283

== ENCOUNTER 2024-08-12 09:00 | Outpatient (RCR) | payer MEDICAID, SELFPAY | END 2024-09-15 10:45 | disposition home or self-care (01) | PROVIDERS: PCP Nurse Practitioner; Visit Provider Podiatrist | DX: M19.071 Primary osteoarthritis, right ankle and foot (principal); R26.89 Other abnormalities of gait and mobility; Z74.09 Other reduced mobility; R53.1 Weakness; Z51.89 Encounter for other specified aftercare | CPT/HCPCS: 97112; 97140; 97162 ==

== ENCOUNTER 2025-02-10 16:02 | Emergency (ER) | payer MEDICAID, SELFPAY ==
[2025-02-10 16:25] VITALS: BP 127/84; PULSE 86; RESP 20; TEMP 36.9; O2SAT 98; BMI 29.3
--- NOTE | 2025-02-10 17:43 | ED.GENADULT ---
HPI - General Adult General Chief complaint: Unspecified Complaint, Adult Stated complaint: bladder stimulation, from [facility] Time Seen by Provider: 02/10/25 17:43 History of Present Illness HPI narrative: Arrives asking to be evaluated after having a reaction during a procedure she was having earlier today. Was having a bladder stimulator inserted and states that after they injected the lidocaine in her back she started to have multiple reactions such as twitching legs, metallic taste in her mouth, and trouble walking . She also states I was just screaming and yelling because I didn' t have control of myself and I couldn't hold my head up. Symptoms stopped on their own after 3 hours according to patient, and she Sstates the reason for her visit here being I need to know why that all happened to me . Alert and oriented, ABCs intact. 34-year-old woman presenting to the emergency department with concern of pain and potential overdose. She describes excessive pain during procedure placement of bladder stimulator and numerous doses of lidocaine and then subsequent muscle twitching and head bobbing, not being able to control herself just felt like Jell-O. Sounds like had some symptoms into her left leg as well some tingling. Ultimately was caught as she went down. She says that she became unusually aggressive screaming and crying which is quite atypical. Accepts that she may have panicked in this entire process. During the procedure she reports questioning a number of times whether everything was okay. She felt that was not being told what was really going on. Whispers on the side she says. Is concerned that has been overdosed with lidocaine. She just wants to know what may have happened. Still with a good deal of pain in her back. Is concerned about bleeding into the dressing as well. Related Data Home Medications ?Medication ?Instructions ?Recorded ?Confirmed bupropion HCl 150 mg tablet,12 hr 150 mg PO BID 01/24/23 02/10/25 sustained-release citalopram 10 mg tablet 40 mg PO DAILY 01/24/23 02/10/25 hydroxychloroquine 200 mg tablet 200 mg PO BID 01/24/23 02/10/25 Previous Rx's ?Medication ?Instructions ?Recorded hydromorphone 2 mg tablet 2 mg PO BID PRN pain #2 tabs 02/10/25 (Dilaudid) hydromorphone 2 mg tablet 2 mg PO Q6H PRN pain #2 tabs 02/10/25 (Dilaudid) Allergies Allergy/AdvReac Type Severity Reaction Status Date / Time chlorhexidine Allergy Mild Rash Verified 02/10/25 16:24 Review of Systems Status of ROS: Reports: 6 or more systems reviewed and unremarkable except as noted in History and below [facility] Surgical History History of bilateral salpingectomy ?Z90.79 - Acquired absence of other genital organ(s) (ICD-10) Social History Smoking Status: Never smoker Second hand tobacco smoke exposure: No How often do you have a drink containing alcohol: never How often do you have six or more drinks on one occasion: Never AUDIT-C Alcohol total score: 0 Non-prescribed substance use: denies use Exam Narrative: Exam Narrative: Pleasant. Speaking carefully, fluidly. Moving extremities fluidly though understandably with some pain in the lower extremities. Cranial nerves 2-12 intact. She is curled up a little bit on her side when initially evaluated. Abdomen is soft nontender. There are cables coming under a Tegaderm dressing from her mid low back. Gauze dressing in place is stained with blood but not quite soaked. Does not appear to otherwise be actively bleeding. No adjacent swellings. Tender to palpation in this area. Appears to have good strength in her extremities at this time. Abdomen is soft nontender. Const: Vital Signs, click to edit/add: Vital Signs - 24 hr 02/10/25 16:25 02/10/25 19:37 02/10/25 21:55 Temperature 98.5 F 97.6 F 97.8 F Pulse Rate [Pulse Oximeter] 86 74 78 Respiratory Rate 20 18 19 Blood Pressure [Ri ght Upper Arm] 127/84 118/81 116/86 Pulse Oximetry 98 98 98 Oxygen Delivery Me thod Room Air Room Air Room Air Documenting provider has reviewed patient's vital signs: yes Course Vital Signs Vital signs: Initial Vital Signs Temperature 98.5 F 02/10/25 16:25 Temperature Source Temporal Artery Scan 02/10/25 16:25 Pulse Rate 86 02/10/25 16:25 Respiratory Rate 20 02/10/25 16:25 Blood Pressure 127/84 02/10/25 16:25 Blood Pressure Mean 98 02/10/25 16:25 Pulse Oximetry 98 02/10/25 16:25 Oxygen Delivery Method Room Air 02/10/25 16:25 Vital Signs Temperature 98.5 F 02/10/25 16:25 Pulse Rate 86 02/10/25 16:25 Respiratory Rate 20 02/10/25 16:25 Blood Pressure 127/84 02/10/25 16:25 Pulse Oximetry 98 02/10/25 16:25 Oxygen Delivery Method Room Air 02/10/25 16:25 Temperature 97.8 F 02/10/25 21:55 Pulse Rate 78 02/10/25 21:55 Respiratory Rate 19 02/10/25 21:55 Blood Pressure 116/86 02/10/25 21:55 Pulse Oximetry 98 02/10/25 21:55 Oxygen Delivery Method Room Air 02/10/25 21:55 Medications Administered Medications: Discontinued Medications Generic Name Dose Route Start Last Admin Trade Name Freq PRN Reason Stop Dose Admin Hydromorphone HCl 0.5 mg 02/10/25 18:04 02/10/25 18:27 Hydromorphone 0.5 Mg/0.5 Ml Inj IVP 02/10/25 18:05 0.5 mg ONCE ONE Administration Hydromorphone HCl 0.5 mg 02/10/25 19:22 02/10/25 19:33 Hydromorphone 0.5 Mg/0.5 Ml Inj IVP 02/10/25 19:23 0.5 mg ONCE ONE Administration Hydromorphone HCl 2 mg 02/10/25 21:47 02/10/25 21:53 Hydromorphone 2 Mg Tablet PO 02/10/25 21:48 2 mg ONCE ONE Administration Sodium Chloride 1,000 mls @ 1,000 mls/hr 02/10/25 18:04 02/10/25 20:24 0.9 % Sodium Chloride 1000 Ml IV 02/10/25 19:03 Infused .Q1H ONE Infusion Medical Decision Making MDM Narrative Medical decision making narrative: This procedure was done earlier today. She did take 2 doses of prescribed Dilaudid today. We can certainly image looking for concerning bleeding or fluid collection. Can also verify that wires have not shifted. She would appreciate treatment for postprocedural pain at this time. She has not reported loss of bowel or bladder control. Does not appear to be toxic in any way at this time. Will try clarify events of today contacting clinic where procedure was done and hopefully speaking with provider. IV was established. Normal saline given. Did receive dosings of Dilaudid during time in the ER. Pain was managed. Keily was pleased to report that during time in the emergency department her historical frequency of urination had spaced out markedly. I believe she only urinated once or twice during her time here. CT pelvis with IV contrast independently reviewed by me shows stimulator leads. Deferring to radiology for proper location. I do not see any discrete fluid collection. Indication: POST BLADDER STIMULATOR SURGERY Technique: CT pelvis with IV contrast utilizing 80 mL Isovue 370 Comparison: MRI sacrum/coccyx on February 09, 2025 Findings: No bowel obstruction or inflammation. Circumferential bladder wall thickening secondary to underdistention. The uterus and bilateral ovaries are unremarkable. No intra-abdominal or intrapelvic free air, free fluid, or abscess. No abdominopelvic lymphadenopathy. The vasculature is unremarkable. Bilateral presumed neurostimulator leads the one on the right terminating within the pelvis, posterior to the lower uterine segment, and the one on the left terminating along the medial aspect of the left gluteus maki muscle. Minimal subcutaneous gas in the bilateral gluteus maki muscles, likely secondary to lead placement. Impression: 1. No CT evidence of acute process involving the pelvis. 2. Incidental findings detailed above. Please note that all CT scans at this facility use dose modulation, iterative reconstruction, and/or weight-based dosing when appropriate to reduce radiation dose to as low as reasonably achievable. Dictated by Michael David MD @ 02/10/2025 8:46:09 PM I did manage to reach Urology provider. Discussed case. Does appear that there was some degree of panic attack on top of pain and experience of stimulation during procedure. Reviewed quantity of lidocaine given and this would not be at maximal dosing. Reviewed imaging here today as well with stimulator leads in expected locations. Does have close follow-up. Discussed all with Keily. Overall improved, stable during time in the emergency department. She is worried a little bit about pain having 2 tablets of Dilaudid remaining. Is requesting just a few more. These will be prescribed on discharge. Would encourage close follow-up with primary care if pain management is needed. See patient discharge plan for further discussion Please make an appointment with your primary care provider in case it is needed. Please follow-up with urology as planned next week. Be seen sooner for uncontrolled pain, fever, worsening bleeding. Medical Records Medical records reviewed: Yes I reviewed the patient's medical records Lab Data Lab results reviewed: Yes I reviewed the patient's lab results Labs: Lab Results 02/10/25 Range/Units 18:33 Hgb 14.5 (12.0-16.0) gm/dL Sodium 137 (135-149) mmol/L Potassium 4.0 (3.6-5.1) mmol/L Chloride 103 (96-114) mmol/L Carbon Dioxide 28 (20-32) mmol/L Anion Gap 6 L (7-15) mEq/L BUN 15 (5-24) mg/dL Creatinine 0.8 (0.5-1.5) mg/dL Estimated Creat Clear 90.84 Estimated GFR 100 ml/min Glucose 89 (60-115) mg/dL Calcium 9.3 (8.4-10.6) mg/dL ECG Data Attestation: I personally reviewed and interpreted this ECG as follows: (Normal sinus rhythm rate 69) Discharge Plan Discharge Clinical Impression: Other acute postprocedural pain Patient Disposition: Home w/ Parent or Adult Condition: Improved Instructions: Pain Management (ED) Additional Instructions: Please make an appointment with your primary care provider in case it is needed. Please follow-up with urology as planned next week. Be seen sooner for uncontrolled pain, fever, worsening bleeding. Prescriptions: New hydromorphone [Dilaudid] 2 mg tablet 2 mg PO Q6H PRN (Reason: pain) Qty: 2 0RF hydromorphone [Dilaudid] 2 mg tablet 2 mg PO BID PRN (Reason: pain) Qty: 2 0RF No Action bupropion HCl 150 mg tablet sustained-release 12 hr 150 mg PO BID citalopram 10 mg tablet 40 mg PO DAILY hydroxychloroquine 200 mg tablet 200 mg PO BID Follow Up/Referrals: Rose Mary Perkins, STRIPPING MACHINE OPERATOR, RESP THER, DNP [Primary Care Provider, Family Practice] Stand Alone Forms: Proterraealth Info Instructions
--- NOTE | 2025-02-10 18:04 | CRLHL7_ITS ---
For Patients: As a result of the Century Cures Act, medical imaging exams and procedure reports are released immediately into your electronic medical record. You may view this report before your referring provider. If you have questions, please contact your health care provider. Indication: POST BLADDER STIMULATOR SURGERY Technique: CT pelvis with IV contrast utilizing 80 mL Isovue 370 Comparison: MRI sacrum/coccyx on February 09, 2025 Findings: No bowel obstruction or inflammation. Circumferential bladder wall thickening secondary to underdistention. The uterus and bilateral ovaries are unremarkable. No intra-abdominal or intrapelvic free air, free fluid, or abscess. No abdominopelvic lymphadenopathy. The vasculature is unremarkable. Bilateral presumed neurostimulator leads the one on the right terminating within the pelvis, posterior to the lower uterine segment, and the one on the left terminating along the medial aspect of the left gluteus maki muscle. Minimal subcutaneous gas in the bilateral gluteus maki muscles, likely secondary to lead placement. Impression: 1. No CT evidence of acute process involving the pelvis. 2. Incidental findings detailed above. Please note that all CT scans at this facility use dose modulation, iterative reconstruction, and/or weight-based dosing when appropriate to reduce radiation dose to as low as reasonably achievable. Dictated by Michael David MD @ 02/10/2025 8:46:09 PM (Electronically Signed)
--- OUTSIDE RECORDS SUMMARY | 2025-02-10 18:38 | XMS_ITS | Clinical Summary ---
Author Organization [facility] Address [address], [place] [address] Care Team Providers Care Potato Spotter Name Role Phone Jaqui Stover PA-C Primary Care Provider [phone] Source Comments You are receiving this document as you are listed as the primary care provider,follow-up provider, or the patient has been referred to you for consultation.This is in compliance with the Medicare and[facility] Cent[facility]aid EHR Incentive Program,which states Providers who transition their patient to another setting of careor provider of care or refers their patient to another provider of care shouldprovide summary care record for each transition of care or referral. [facility] Allergies No known active allergies Medications ALBUterol sulfate hfa (PROAIR HFA) 108 (90 BASE) MCG/ACT inhaler Inhale 1-2 Puffs by mouth every 4 hours as needed. 8.5 g 3 0 Active fluoxetine (AKA PROZAC) 20 MG capsuleIndicati ons:Anxiety (HRC),Major depressive disorder, single episode, moderate (HRC) Take 2 Caps by mouth daily. For 1 week, then 1 cap daily for 1 week, then stop the medication 21 Cap 0 1 Active citalopram (AKA CELEXA) 20 MG tablet TAKE ONE TABLET BY MOUTH ONE TIME DAILY 30 Tab 0 1 Active AVIANE 0.1-20 MG-MCG tablet TAKE ONE TABLET BY MOUTH EVERY DAY 84 Each 0 2 Active erythromycin (ERYGEL) 2 % gel Apply topically two times a day. 60 g 9 Active Active Problems Problem Noted Date Diagnosed Date Mild intermittent asthma 03/27/2011 Major depressive disorder, single episode, moder ate 08/09/2010 Overview (03/27/2011): Counseling at [facility], Maritza Soriano every 1-2 weeks Cellulitis and abscess of toe 08/06/2006 Overview (04/14/2015): Epic Ingrowing nail 08/06/2006 Immunizations Immunization Administration Dates Next Due 4vHPV (Gardasil) 03/27/2011,05/17/2010 DTP 03/09/1998, 3,05/12/1993,1992 ,1992 Flu Vac (3+ yrs) 03/27/2011,05/17/2010 HepB Ped/Adol (0-18 yrs) 07/05/1993,1992,0 1992 Hib (HbOC) 07/05/1993,1992,1992 MCV4 (Menactra) 08/09/2010 MMR 07/10/2005,07/05/1993 OPV, Trivalent (Orimune or tOPV) 07/05/1993,04/15,1992,1992 Tdap 07/10/2005 Varicella 1992(Deferred: Immune by Nahomy turner) Family History Medical History Relation Name Comments Thyroid Disorder Maternal Grandmother hyp othyroid Cancer, Breast Other maternal olde r relatives Cancer, Colon Other maternal older relatives Cancer, Melanoma Other maternal ol candy relatives Thyroid Disorder Other great aunt Relation Name Status Comments Maternal Grandmother Other Social History Tobacco Use Types Packs/Day Years Used Date Smoking Tobacco: Passive Smo ke Exposure - Never Smoker Smokeless Tobacco: Never Alcohol Use Standard Drinks/Week Comments Not Asked 0 (1 standard drink = 0.6 oz pur e alcohol) Comments No Sex and Gender Information Value Date Recorded Sex Assigned at Not on file Legal Sex Female 7:06 AM CDT Gender Identity Not on file Sexual Orientation Not on file Last Filed Vital Signs Vital Sign Reading Time Taken Comments Blood Pressure 125/73 08/08/2018 1:55 PM SENIOR PRICING ANALYST Pulse 71 08/08/2018 1:55 PM SENIOR PRICING ANALYST Temperature 36.9 C (98.4 F) 04/30/2011 2:53 PM CDT Respiratory Rate 18 08/08/2018 1:55 PM SENIOR PRICING ANALYST Oxygen Saturation 98% 08/08/2018 1:55 PM SENIOR PRICING ANALYST Inhaled Oxygen Concentration - - Weight 64 kg (141 lb 3.2 oz) 04/30/2011 2:53 PM CDT Height 165.1 cm (5' 5) 03/27/2011 2:00 PM CDT Body Mass Index 23.5 03/27/2011 2:00 PM CDT Plan of Treatment Health Maintenance Due Date Last Done Comments Cervical Cancer Screening Due 1992 Hep C Screening (Preventive Services) 1992 Asthma ACT (score of 20 or higher) 1996 Adult Preventive Visit 2010 07/10/2005 COVID-19 Vaccine ( season) 2024 Influenza Vaccine (#1) 2025 , 07/05/2020, 05/13/2019, Additional history exists DTaP/Tdap/Td Vaccine (8 - Tdap) 10/15/2028 10/15/2018, 10/13/2014, 07/10/2005, Additional history exists Zoster/Shingles Vaccine (1 of 2) 2042 HepB Vaccine Completed 07/05/1993, 08/1992, 1992 Hib Vaccine Completed 07/05/1993, 07/16, 1992 IPV (Polio) Vaccine Completed 07/05/1993, 05/12/1993, 1992, Additional history exists MCV4 Vaccine Completed 08/09/2010 HPV Vaccine Completed 03/27/2012, 03/15, 06/27/2011, Additional history exists HepA Vaccine Aged Out 05/30/2016, 10/13/2014 No lo nger eligible based on patient's age to complete this topic HIV Screening (Preventive Services) Completed 12/27/2018 Meningococcal B Vaccine Aged Out No l onger eligible based on patient's age to complete this topic Pneumococcal Vaccine Aged Out No long er eligible based on patient's age to complete this topic Insurance [facility] Care Teams Potato Spotter Relationship Specialty Start Date End Date Jaqui Stover PAAngélicaC [address] [place] [address] PCP - General 08/08/10
--- OUTSIDE RECORDS SUMMARY | 2025-02-10 18:38 | XMS_ITS | Clinical Summary ---
Author Organization [facility] Address [address] [place] [address] Care Team Providers Care [employer] Consultant Name Role Phone Rose Mary Perkins APRN, C.N.P., D.N.P. P [facility] Care Provider Source Comments Patient records contain information from all sites at [facility]. For routine questions regarding patient records, call [phone] during business hours, M-F 8:00 AM - 5:00 PM Central Time. Record requests for emergency care only can be directed to [phone] at any time.[facility] Allergies Active Allergy Reactions Criticality Noted Date Comments Chlorhexidine Rash 02/12/2020 Medications * This document contains information received from the source organization and may not represent a complete record from that organization. multivitamin capsule Take 1 capsule by mouth daily. Active albuterol 90 mcg/actuation inhalerIndicatio ns:Asthma Mild Intermittent (HCC) Inhale 1-2 puffs as needed for wheezing or shortness of breath. 18 g 11 2 Active citalopram (CeleXA) 20 mg tabletIndication s:Major Depressive Disorder, Recurrent, Unspecified TAKE 1 TABLET BY MOUTH DAILY ALONG WITH A 10 MG TABLET FOR A TOTAL DOSE OF 30 MG. 90 tablet 3 4 Active buPROPion (Wellbutrin SR) 150 mg 12 hr tabletIndication s:Anxiety Generalized Disorder,Depress ed Libido Take 1 tablet (150 mg total) by mouth 2 (two) times a day. 180 tablet 3 5 Active citalopram (CeleXA) 10 mg tablet Take 1 tablet (10 mg total) by mouth daily. 90 tablet 3 5 Active tretinoin (Retin-A) 0.025 % creamIndications :Sun Damaged Skin Apply 1 Application topically at bedtime. Apply to face nightly. 45 g 2 5 Active fluocinolone-hyd roquinone-tretin oin (Tri-Ina) 0.01-4-0.05 % cream Apply topically at bedtime. APPLY TOPICALLY TO THE AFFECTED AREA OF FACE AT BEDTIME. 30 g 1 5 Active hydroxychloroqui ne (PlaqueniL) 200 mg tablet Take 200 mg by mouth 2 (two) times a day. 3 Active fluticasone propionate (Flovent HFA) 110 mcg/actuation inhaler Inhale 2 puffs as needed (Shortness of Breath or Wheezing). Active metroNIDAZOLE (MetroCream) 0.75 % cream APPLY 1 APPLICATION TOPICALLY 2 TIMES DAILY NEEDED 45 g 3 5 Active acetaminophen (TylenoL) 500 mg tablet Take 2 tablets (1,000 mg total) by mouth every 6 (six) hours for 5 days. 5 Active polyethylene glycol (Miralax) 17 gram powder packet Take 1 packet (17 g total) by mouth daily. Dissolve each 17 g dose in 240 mLs (8 ounces) of beverage. 5 Active sennosides (Senokot) 8.6 mg tablet Take 2 tablets (17.2 mg total) by mouth 2 (two) times a day. Take while taking narcotic pain medication to prevent constipation. Stop taking if you develop diarrhea or loose stools. 5 Active methocarbamoL (Robaxin) 500 mg tablet Take 1 tablet (500 mg total) by mouth 3 (three) times a day as needed for muscle spasms for up to 7 days. 21 tablet 5 Active HYDROmorphone (Dilaudid) 2 mg tabletIndication s:Acute Pain Exception Take 0.5 tablets (1 mg total) by mouth every 4 (four) hours as needed for severe pain or score 7-10 of 10 (Take for pain not relieved by other oral medications) Indication: Acute Pain Exception. 12 tablet 5 Active Active Problems Patient Care Coordination No [...] consistent with 7wk [facility]: [facility] Nada's provider: Jane OB education completed. Pre-reg completed at [facility]. FOB involved- NO- MOM AND SISTER FOR [...] 12/10/2018 positive Problem Noted Date Diagnosed Date Cholecystitis 11/03/2024 Incontinence Urinary Stress And Urge 10/28/2023 Frequency [...] Encounters Date Type Department Care Team Description 12/06/2024 Nurse Triage Department of [facility], [facility], in [address] [address] [facility], Aleta. Rectal Bleeding; Abdominal Pain 11/18/2024 1:15 PM CDT Clinical Communication Division of Trauma Critical Care and General Surgery in [address] [address] [place] In[place], CHADD, C.N.P. Post Hospital Follow-up (11/03/2024 Laparoscopic cholecystectomy, /) 11/11/2024 3:30 PM CDT Office Visit Department of [facility], [facility], in [place], [place] [address] [place] [address] Rose Mary Perkins APRN, C.N.P., D.N.P. Follow Up Examination Postoperative Visit (Primary Dx) from Last 3 Months Immunizations Immunization Administration Dates Next Due 4vHPV (discontinued) 03/27/2012,06/27/20 [...] MPSV4 08/09/2010 OPV 07/05/1993, 3,1992,1991 PCV20 12/08/2021 PPD Test 11/02/2024 SARS-COV-2 (COVID-19) - MODERNA(Discontinued) 08/22/2023(Deferred: Patient decision) Td Preservative Free (TENIVA C, DECAVAC) 07/10/2005 Tdap 10/15/2018,10/13/2014,07/10/2005 Tuberculin Skin Test, Unspecified 11/02/2024 influenza trivalent vaccine (6 months and older)(PF) 05/13/2019 influenza vaccine quad (FLUZONE/FLUARIX) (6 months and older)(PF) 04/30/2022,05/20/2021,07/05/2020,2018,04/30/2018,07/12/2017,05/17/2016 Family History Medical History Relation Name Comments ADD Brother Lucius trivedi Asthma Brother Lucius trivedi Depression Brother Lucius trivedi Learning disorder Brother Lucius trivedi Alcohol abuse Father Maurisio trivedi Anxiety disorder Father Maurisio trivedi Depression Father Maurisio trivedi Skin cancer Grandfather Stroke Maternal Grandfather deloris kamlana Arthritis Maternal Grandmother Katiana morenoderhus Osteoporosis Maternal Grandmother Katiana morenoderhus Ovarian cancer Maternal Grandmother Katiana contrerass 7 0s Asthma Mother Diana trivedi Ovarian cancer Other maternal great aunt 60s Lung cancer Paternal Grandfather Rio barkley Depression Paternal Grandmother Sheree barkley Stroke Paternal [...] pur e alcohol) [facility] [employer] Answer Date Recorded In the past 12 months has e [employer], gas, oil, or water [employer] threatened to shut off services in your home? No 11/03/2024 Humiliation, Afraid, Rape, and Kick questionnair e Answer Date Recorded Within the last year, have y ou been afraid of your partner or ex-partner? No 11/03/2024 Within the last year, have y ou been humiliated or emotionally abused in other ways by your partner or ex-partner? No Within the last year, have y ou been kicked, hit, slapped, or otherwise physically hurt by your partner or ex-partner? No 11/03/2024 Within the last year, have y ou been raped or forced to have any kind of sexual activity by your partner or ex-partner? No 11/03/2024 Hunger Vital Sign Answer Date Recorded Within the past 12 months, y ou worried that your food would run out before you got the money to buy more. Sometimes true Within the past 12 months, t he food you bought just didn't last and you didn't have money to get more. Never true PRAPARE - Transportation Answer Date Re corded In the past 12 months, has l ack of transportation kept you from medical appointments or from getting medications? No 10/14 In the past 12 months, has l ack of transportation kept you from meetings, work, or from getting things needed for daily living? No 11/03/2024 Depression Answer Date Recor ded PHQ-9 Total Score (max 27) 7 08/07 Housing Stability Answer Date Recorded What is your living situation today? I have a [facility] place to live 11/03/2024 Education Answer Date Recorded What is the highest level of school you have completed or the highest degree you have received? Bachelor's degree (e.g., BA, AB, BS) 12/24/2018 Comments No Sex and Gender Information Value Date Recorded Sex Assigned at Female 02/12/2020 1:12 PM CDT Legal Sex Female 5:00 PM SETTER OUT Gender Identity Female 02/12/2020 1:12 PM CDT Sexual Orientation Straight 02/12/2020 1: 12 PM CDT Last Filed Vital Signs Vital Sign Reading Time Taken Comments Blood Pressure 113/77 11/11/2024 3:27 PM CDT Pulse 71 11/11/2024 3:27 PM CDT Temperature 36.3 C (97.3 F) 11/11/2024 3:27 PM CDT Respiratory Rate 20 11/11/2024 3:27 PM CDT Oxygen Saturation 97% 11/04/2024 3:00 PM CDT Inhaled Oxygen Concentration - - Weight 79.1 kg (174 lb 4.4 oz) 11/11/2024 3:27 P M CDT Height 165 cm (5' 4.96) 11/11/2024 3:27 PM CDT Body Mass Index 29.04 11/11/2024 3:27 PM CDT Plan of Treatment Health Maintenance Due Date Last Done Comments COVID-19 Vaccine (#1) 1997 Zoster Vaccines (1 of 2) 2011 Asthma Action Plan 11/06/2022 11/06/2021, 05/30/2016 Depression Monitoring (PHQ-9) 12/05/2024 08/07/2024, 10/15/2017 Influenza Vaccine (#1) 2025 , 05/20/2021, 07/05/2020, Additional history exists Asthma Control Test Questionnaire 06/03/2025 024, 05/30/2016 [...] 11/03/2015 Hepatitis A Vaccines Completed 05/30/2016, 10/14/19 Hepatitis B Vaccines Completed 05/30/2016, 05/30/2016, 11/24/2014, Additional history exists HIV Screening Completed 05/20/2018, 11/03/2015 Hepatitis B Screening Discontinued 12/27/2018 , 05/20/2018, 10/13/2014 Pneumococcal vaccine (0-49 years) Completed 022 Depression Monitoring (PHQ-9 for quality tracking) Completed 08/07/2024, 08/07/2024 Medical Devices Implanted Type Area Named Account Executive Device Identifier Shelf Expiration Date Model / Serial / Lot Hardware E.G. Pins/Screws/ Rods Hardware e.g. pins/screws /rods Right: Foot Clp Hmol Plmr Lg - [id number] Implanted:Qt y: 1 on 11/03/2024 by Deloris Martinez M.D., Ph.D. at [facility] Hardware e.g. pins/screws /rods N/A: Abdomen Perdoo [id number] 07/21/2029 [id number] / / [id number] Procedures Procedure Name Priority Date/Time Associated Diagnosis Comments HPV WITH GENOTYPING, PCR, THINPREP Routine 06/02/2021 10:06 AM SETTER OUT HIV-1 P24 AG, HIV-1/2 AB ,P Routine 05/20/2018 12:40 PM SETTER OUT Examination Test With Positive Result HEPATITIS B SURFACE ANTIGEN Routine 05/20/2018 12:40 PM SETTER OUT Examination Test With Positive Result HCV AB SCRN W/REFLEX TO HCV PCR, S Routine 11/03/2015 3:08 PM CDT from Last 3 Months or Most Recently Relevant to Health Maintenance Results * HPV with Genotyping, PCR, ThinPrep (06/02/2021 10:06 AM SETTER OUT) HPV with Genotyping, ThinPrep, PCR Negative Negative 06/05/2021 6:05 PM SETTER OUT [facility] Comment: Negative for high risk HPV by nucleic acid amplification. The following high risk HPV types were not detected: 16, 18, 31, 33, 35, 39, 45, 51, 52, 56, 58, 59, 66, and 68 Varies 06/02/2021 10:0 6 AM SETTER OUT 06/05/2021 6:51 AM SETTER OUT us Cyrus Parker M.D. LAB MICROBIOLOGY - GENERAL O RDERABLES Final Result [facility] [address] [place] [address], [place] [address] * HIV-1 p24 Ag, HIV-1/2 Ab ,P (05/20/2018 12:40 PM SETTER OUT) HIV Ag/Ab Scrn, P Negative Negative 05/21/2018 1:55 PM SETTER OUT [facility] Comment: Negative result does not rule out HIV infection. If exposure to HIV infection occurred <14 days ago, contact the laboratory to request addition of HIV-1 RNA detection / quantification test. HIV-1 p24 Ag Scrn, P Negative Negative 05/21/2018 1:55 PM SETTER OUT [facility] Comment: Negative result does not rule out HIV infection. If exposure to HIV infection occurred <14 days ago, contact the laboratory to request addition of HIV-1 RNA detection / quantification test. HIV-1 Ab Scrn, P Negative Negative 05/21/2018 1:55 PM SETTER OUT [facility] Comment: Negative result does not rule out HIV infection. If exposure to HIV infection occurred <14 days ago, contact the laboratory to request addition of HIV-1 RNA detection / quantification test. HIV-2 Ab Scrn, P Negative Negative 05/21/2018 1:55 PM SETTER OUT [facility] Comment: Negative result does not rule out HIV infection. If exposure to HIV infection occurred <14 days ago, contact the laboratory to request addition of HIV-1 RNA detection / quantification test. Blood (Blood, Venous) 05/20/2018 12:40 PM SETTER OUT 05/21/2018 11:59 AM SETTER OUT Nicol Brady M.D. LAB MICROBIOLOGY - BLOOD ORDERABLES Final Result Performing Organization Address City/[facility]/ZIP Co de Phone Number [facility] [address] [place] [id number], [facility] * Hepatitis B Surface Antigen (05/20/2018 12:40 PM SETTER OUT) HBs Antigen, S Nonreactive Nonreactive 05/21/20 18 11:[address] [facility] Comment: Biotin has been identified by the health care consultant as a potential interfering substance. Higher concentrations of biotin may be found in multivitamins, hair/nail supplements, and workout supplements. If the result does not match clinical observations, repeat testing after patient refrains from the use of supplements for at least 12 hours. Blood (Blood, Venous) 05/20/2018 12:40 PM SETTER OUT 05/20/2018 9:22 PM SETTER OUT Nicol Brady M.D. LAB MICROBIOLOGY - BLOOD ORDERABLES Final Result Performing Organization Address City/[facility]/ZIP Co de Phone Number [facility] [address] * HCV Ab w/Reflex to HCV PCR, S (medicare) (11/03/2015 3:08 PM CDT) HXHCV Ab [facility] Negative Negative POWERCHART Comment: Szsyqf-af-pujuuw ratio is <1.00. Test Performed by: [facility] [address] [place] [address] Double Needle Operator Lockstitch: Santo Hopkins II, M.D., Ph.D. Blood 11/03/2015 3:08 PM CDT Kimo Foster M.D. LAB MICROBIOLOGY - BLOOD O RDERABLES Final Result POWERCHART from Last 3 Months or Most Recently Relevant to Health Maintenance Insurance [employer] Advance Directives For more information, please contact: [phone] * Full Code (Latest Code Status on File) Date Activated Date Inactivated Comments 11/03/2024 5:33 AM 11/04/2024 5:11 PM Question Answer Comments Full Code: Not Discussed Due to: Patient not available Care Teams [employer] Dynamics Consultant Relationship Specialty Start Date End Date Rose Mary Perkins APRN, C.N.P., D.N.P. [address] [place] [address] PCP - General 01/07/23
--- OUTSIDE RECORDS SUMMARY | 2025-02-10 18:38 | XMS_ITS | Clinical Summary ---
Author Organization [employer] [facility] Address [address] [place] [address] Care Team Providers Care Senior Business Intelligence Analyst Name Role Phone Cyndee Washington MD Unavailable [phone] DelroyRose Mary Guidry [facility] Primary Care Provi candy Allergies Active Allergy Reactions Criticality Noted Date Comments Chlorhexidine Rash 02/12/2020 Medications citalopram (CELEXA) 20 mg tablet Take 1.5 tablets by mouth once daily. 0 02/07/20 17 Active albuterol HFA 90 mcg/actuation inhaler Inhale 1-2 Puffs by mouth every 4 hours if needed. 05/17/20 10 Active FA/mv,Ca,iron,min/ lycopene/lut (MULTIVITAL ORAL) Take 1 Tab by mouth once daily. Active buPROPion (WELLBUTRIN SR) 150 mg Sustained-Release tablet Take 150 mg by mouth 2 times daily. 07/24/19 21 Active citalopram (CELEXA) 10 mg tablet Take 10 mg by mouth once daily. 02/12/20 23 Active Tri-Ina 0.01-4-0.05 % cream APPLY TOPICALLY TO THE AFFECTED AREA OF FACE AT BEDTIME 11/14/19 24 Active tolterodine (DETROL LA) 4 mg Extended-Release [...] Application topically to affected area(s) at bedtime. 08/15/19 24 Active HYDROcodone-acetam inophen (5-325 mg/tablet)Indicati ons:Post-op pain Take 1 Tablet by mouth every 4 hours if needed for Pain. Max acetaminophen dose: 4000 mg in 24 hrs. 16 Tablet 06/18/20 24 Active ondansetron (ZOFRAN ODT) 8 mg disintegrating tabletIndications: Nausea Place 1 Tablet (8 mg) on the tongue every 8 hours if needed for Nausea/Vomiting. 12 Tablet 06/18/20 24 Active hydroxychloroquine 200 mg tabletIndications: Polyarthritis Take 1 Tablet (200 mg) by mouth two times daily. 180 Tablet 1 12/11/19 25 Active Active Problems Problem Noted Date Diagnosed Date Acute cholecystitis 11/02/2024 Tobacco dependence due to cigarettes 01/05/2020 Polyarthralgia 07/23/2019 39 weeks gestation of 12/28/2018 PROM (premature rupture of membranes) 12/28/2018 Mild preeclampsia 12/28/2018 complication before 12/12/2018 Anxiety 12/02/2018 Generalized anxiety disorder 12/02/2018 Diarrhea 04/10/2017 Overview (04/30/2017): Colonoscopy 04/2017 normal repeat at age 52 EGD 04/2017 normal , recommend ct Periumbilical abdominal pain 04/10/2017 Incontinence of feces with fecal urgency 017 Recurrent major depressive disorder 10/13/2014 Overview (12/28/2018): Overview: Depression Major Recurrent NOS Asthma 09/15/2012 Overview (12/28/2018): Overview: Asthma, Unspecified Hyperlipidemia LDL goal <160 03/27/2012 Mild intermittent asthma 03/27/2011 Major depressive disorder, single episode, moder ate 08/09/2010 Overview (11/02/2024): [facility] Resolved Problems Problem Noted Date Diagnosed Date Resolved Date Arthritis, rheumatoid 05/20/20182019 Encounters Date Type Department Care Team Description 02/09/2025 9:45 AM CDT Ancillary Procedure [facility] [address] [facility] [address] [place] [address] Arrived 02/09/2025 9:00 AM CDT Ancillary Procedure [facility] [address] [facility] [address] [place] [address] Arrived 02/09/2025 Travel 02/03/2025 Transcribe Orders [facility] [place] [phone] Leticia Levy MD 12/10/2024 Refill [facility] [address] [place] [address] Cyndee Washington MD Refill Request (plaquenil) from Last 3 Months Immunizations Immunization Administration Dates Next Due DTP 03/09/1998, 3,05/12/1993,11/18,1992 [...] (age >= 7 Years) 5 Tdap 10/15/2018 Tuberculin (PPD) 11/02/2024 Family History Medical History Relation Name Comments [...] Housing in the Last Year 1 06/25/2022 Interpersonal Safety Answer Date Record ed Are you being hit, kicked, p ushed or yelled at (see row info)? 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 Last Filed Vital Signs Vital Sign Reading Time Taken Comments Blood Pressure 136/84 11/02/2024 5:35 PM CDT Pulse 78 11/02/2024 5:35 PM CDT Temperature 36.7 C (98 F) 11/02/2024 5:35 PM CDT Respiratory Rate 16 11/02/2024 5:35 PM CDT Oxygen Saturation 98% 11/02/2024 5:35 PM CDT Inhaled Oxygen Concentration - - Weight 80.9 kg (178 lb 5.6 oz) 11/02/2024 5:41 P M CDT Height 165.1 cm (5' 5) 11/02/2024 5:41 PM CDT Body Mass Index 29.68 11/02/2024 5:41 PM CDT Plan of Treatment Upcoming Encounters Date Type Department Care Team (Late st Contact Info) Description 03/02/2025 8:30 AM CDT Office Visit [facility] [address] [facility] [address] [facility] [address] [place], [place] [id number] Cyndee Washington MD [address] [facility] [address] [facility] [facility] [address] [place] [address] Health Maintenance Due Date Last Done Comments COVID-19 vaccine series (#1) 1997 Depression screening for age 12+ 07/10/2017 07/10/20 16 Pap test for age 21-65 02/24/2022 9 (Completed outside of [facility]) BMI (ht and wt on same day) for age 18+ 11/05/2024 11/06/2023, 11/12/2022, 10/25/2020, Additional history exists Influenza Vaccine (#1) 2025 2, 05/20/2021, 07/05/2020, Additional history exists Tetanus booster 10/15/2028 10/15/2018, 04/07/2014 (Completed outside of [facility]), 07/10/2005 Hepatitis B series for 19+ Completed 07/05, 1992, 1992 HIV for age 15-65 Completed 12/27/2018 Hepatitis C screening for ag e 18-79 Completed 12/27/2018 Pneumococcal series for age 6-49 Completed 12/09/19 Medical Devices Implanted Type Area Equipment Analyst Device Identifier Shelf Expiration Date Model / Serial / Lot Screw Bone 2.5x18mm Mini Headed - [id number] Implanted:Qty: 2 on 04/03/2022 by Charles Price DPM at [facility] Right: Foot [employer] [id number] / / Explanted Type Area Equipment Analyst Device Identifier Shelf Expiration Date Model / Serial / Lot K-Wire [employer] .[id number] - [id number] Explanted:Qty: 2 on 04/03/2022 by Charles Price DPM at [facility] Right: Foot [employer] [id number] / / Procedures Procedure Name Priority Date/Time Associated Diagnosis Comments MR SPINE SACRUM COCCYX WWO Routine 02/09/2025 10:34 AM CDT Full incontinence of feces MR SPINE LUMBAR WWO Routine 02/09/2025 10:32 AM CDT Full incontinence of feces EXPOSURE (BBF) ANTI HCV STAT 12/27/2018 8:29 AM CDT EXPOSURE (BBF) RAPID HIV STAT 12/27/2018 8:25 AM CDT from Last 3 Months or Most Recently Relevant to Health Maintenance Results * MR SPINE SACRUM COCCYX WWO (02/09/2025 10:34 AM CDT) Anatomical Region Laterality Modality SACRUM, COCCYX, Pelvis, Spine Ma gnetic Resonance 02/09/2025 10:4 6 AM CDT Impressions 02/09/2025 10:46 AM CDT 1. No abnormalities involving the sacral spinal region. Dictated by Pa Bardales MD @ 02/09/2025 10:46:31 AM (Electronically Signed) Narrative 02/09/2025 10:46 AM CDT For Patients: As a result of the Cures Act, medical imaging exams and procedure reports are released immediately into your electronic medical record. You may view this report before your referring provider. If you have questions, please contact your health care provider. INDICATION: Incontinence. TECHNIQUE: Sacral spine MRI with and without contrast. 15 cc of gadolinium based intravenous contrast administered. COMPARISON: None. FINDINGS: No acute fracture or marrow replacing process. SI joints are within normal limits. No abnormalities involving the sacral spinal canal. Sacral nerve roots are normal in appearance. No extra-spinal soft tissue abnormalities. Procedure Note Pa Bardales MD - 02/09/2025 For Patients: As a result of the Cures Act, medical imagingexams and procedure reports are released immediately into your electronicmedical record. You may view this report before your referring provider.If you have questions, please contact your health care provider. INDICATION: Incontinence. TECHNIQUE: Sacral spine MRI with and without contrast. 15 cc of gadolinium basedintravenous contrast administered. COMPARISON: None. FINDINGS: No acute fracture or marrow replacing process. SI joints are within normallimits. No abnormalities involving the sacral spinal canal. Sacral nerveroots are normal in appearance. No extra-spinal soft tissue abnormalities. IMPRESSION: 1. No abnormalities involving the sacral spinal region. Dictated by Pa Bardales MD @ 02/09/2025 10:46:31 AM (Electronically Signed) Leticia Levy MD MR Final Result * MR SPINE LUMBAR WWO (02/09/2025 10:32 AM CDT) Anatomical Region Laterality Modality Spine, LUMBAR SPINE Magnetic Res onance 02/09/2025 10:4 3 AM CDT Impressions 02/09/2025 10:43 AM CDT 1. No acute fracture or marrow replacing process. 2. No significant spinal canal/neural foraminal stenosis at any lumbar level. 3. No intradural pathology. Lower cord/conus and cauda equina nerve roots are normal in appearance. Dictated by Pa Bardales MD @ 02/09/2025 10:43:29 AM (Electronically Signed) Narrative 02/09/2025 10:43 AM CDT For Patients: As a result of the Cures Act, medical imaging exams and procedure reports are released immediately into your electronic medical record. You may view this report before your referring provider. If you have questions, please contact your health care provider. INDICATION: Incontinence. TECHNIQUE: Lumbar spine MRI with and without contrast. Gadolinium based intravenous contrast administered. COMPARISON: None. FINDINGS: Five lumbar type vertebral bodies, with the last fully formed disc space designated as L5-S1. Normal lumbar alignment. No recent compression fracture or aggressive marrow replacing process. Lower cord/conus signal is normal. The conus terminates at a normal location. No intraspinal mass or pathologic intradural enhancement. A tiny left renal cyst. Discs/Endplates: Remaining discs demonstrate normal height and signal. Findings at individual levels as follows: T11-12: No spinal canal or neural foraminal stenosis. T12-L1: No spinal canal or neural foraminal stenosis. L1-2: No spinal canal or neural foraminal stenosis. L2-3: No spinal canal or neural foraminal stenosis. L3-4: Minimal disc bulge. No spinal canal or neural foraminal stenosis. L4-5: Minimal disc bulge. No spinal canal or neural foraminal stenosis. L5-S1: Minimal disc bulge. No spinal canal or neural foraminal stenosis. Imaged SI joints: Within normal limits. Imaged sacrum: Within normal limits. Procedure Note Pa Bardales MD - 02/09/2025 For Patients: As a result of the Cures Act, medical imagingexams and procedure reports are released immediately into your electronicmedical record. You may view this report before your referring provider.If you have questions, please contact your health care provider. INDICATION: Incontinence. TECHNIQUE: Lumbar spine MRI with and without contrast. Gadolinium based intravenouscontrast administered. COMPARISON: None. FINDINGS: Five lumbar type vertebral bodies, with the last fully formed disc spacedesignated as L5-S1. Normal lumbar alignment. No recent compressionfracture or aggressive marrow replacing process. Lower cord/conus signalis normal. The conus terminates at a normal location. No intraspinal massor pathologic intradural enhancement. A tiny left renal cyst. Discs/Endplates: Remaining discs demonstrate normal height and signal. Findings at individual levels as follows: T11-12: No spinal canal or neural foraminal stenosis. T12-L1: No spinal canal or neural foraminal stenosis. L1-2: No spinal canal or neural foraminal stenosis. L2-3: No spinal canal or neural foraminal stenosis. L3-4: Minimal disc bulge. No spinal canal or neural foraminal stenosis. L4-5: Minimal disc bulge. No spinal canal or neural foraminal stenosis. L5-S1: Minimal disc bulge. No spinal canal or neural foraminal stenosis. Imaged SI joints: Within normal limits. Imaged sacrum: Within normal limits. IMPRESSION: 1. No acute fracture or marrow replacing process. 2. No significant spinal canal/neural foraminal stenosis at any lumbarlevel. 3. No intradural pathology. Lower cord/conus and cauda equina nerve rootsare normal in appearance. Dictated by Pa Bardales MD @ 02/09/2025 10:43:29 AM (Electronically Signed) us Leticia Levy MD MR Final Result * Patient Source ANTI HCV (12/27/2018 8:29 AM CDT) HEPATITIS C ANTIBODY Non-React emily Non-React emily 12/28/2018 1:20 PM CDT [facility] Comment:Antibodies to HCV no t detected; does not exclude the possibility of exposure to HCV. Blood BLOOD SPECIMEN / Unknown Add On / Unknown 12/27/2018 8:29 AM CDT 12/28/2018 8:30 AM CDT us Marsha Hudson NP SEND OUTS Final Result [facility] [address] [place] [address], * Patient Source Rapid HIV - Unknown HIV (12/27/2018 8:25 AM CDT) SOURCE RAPID HIV SCREEN Non-Reacti ve Non-Reacti ve 12/28/2018 8:55 AM CDT [facility] Blood BLOOD SPECIMEN / Unknown Add On / Unknown 12/27/2018 8:25 AM CDT 12/28/2018 8:25 AM CDT us Marsha Hudson QM NURSE SEND OUTS Final Result Performing Organization Address City/State/[facility] Co de Phone Number [address] [address] from Last 3 Months or Most Recently Relevant to Health Maintenance Insurance [facility] MEDICAID Advance Directives * Full Code (Latest Code [...] 7:35 AM 02/01/2020 4:10 PM Care Teams Senior Business Intelligence Analyst Relationship Specialty Start Date End Date Rose Mary Perkins, PAY CLERK [address] [facility] [place] [address] PCP - General Nurse Practitioner 11/02/24 Cyndee Washington MD [address] [facility] [facility] [address] [place] [address] Rheumatology Rheumatology 10/04/16
--- OUTSIDE RECORDS SUMMARY | 2025-02-10 18:38 | XMS_ITS | Clinical Summary ---
Author Organization [facility] Address [address] [place] [address] Care Team Providers Care Photo Tube Assembler Name Role Phone None, Pcp Primary Care Provider Unavailabl e Encounters Date Type Department Care Team Description 11/19/2024 11:00 AM CDT Clinical Support [address] [address] Encounter for PPD skin test reading (Primary Dx) 11/16/2024 11:00 AM CDT Clinical Support [address] [address] Screening for tuberculosis (Primary Dx) from Last 3 Months Immunizations Immunization Administration Dates Next Due PPD Test 11/16/2024,11/02/2024 Social History Tobacco Use Types Packs/Day Years Used Date Smoking Tobacco: Never Assessed Comments Unknown Sex and Gender Information Value Date Recorded Sex Assigned at Not on file Legal Sex Female 10:47 AM CDT Gender Identity Not on file Sexual Orientation Not on file Plan of Treatment Health Maintenance Due Date Last Done Comments Pap Smear 1992 COVID-19 Vaccine (2023-2 5 season) 2024 Influenza Vaccine (#1) 2025 , 05/20/2021, 07/05/2020, Additional history exists DTaP,Tdap,and Td Vaccines (9 - Td or Tdap) 10/15/2028 10/15/2018, 10/13/2014, 07/10/2005, Additional history exists HPV Vaccines Completed 03/27/2012, 03/15, 06/27/2011, Additional history exists Pneumococcal Vaccine: Pediat rics (0 to 5 Years) and At-Risk Patients (6 to 49 Years) Completed 12/08/2021 Insurance [facility] [employer] Care Teams Photo Tube Assembler Relationship Specialty Start Date End Date None, Pcp [address] [facility] [place] [address] PCP - General Marketing Area Manager 11/02/24
--- OUTSIDE RECORDS SUMMARY | 2025-02-10 18:38 | XMS_ITS | Patient Health Record ---
Author Organization [facility] Address [address] [facility] [address] [place] [address] Care Team Providers Care Checker Stocker Name Role Phone Devendra AGARWAL, Elda Unavailable [phone] Reason For Referral No Information Plan Of Treatment No Information Insurance Providers Payer Name Payer Address Payer Phone Subscriber Number Group Number Insured Name Patient Relationship to Insured Coverage Start Date Coverage End Date [facility] [address] [address] [place] [id number] Keily Trivedi Self - patient is the insured 6
--- OUTSIDE RECORDS SUMMARY | 2025-02-10 18:38 | XMS_ITS | Clinical Summary ---
Author Organization [place] Address [address] [place] [address] Care Team Providers Care Rv Parts And Service Director Name Role Phone Jody Muller NP Primary Care Provider [phone] Allergies No known active allergies Medications levonorgestrel- [...] (CELEXA) 20 MG tabletIndicatio ns:Mild major depression Take 1.5 tablets by mouth daily. 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
[2025-02-10 18:39] LABS: Hemoglobin* 14.5 gm/dL (12.0-16.0)
[2025-02-10 18:52] LABS: Chloride* 103 mmol/L (96-114); Potassium* 4.0 mmol/L (3.6-5.1); Sodium* 137 mmol/L (135-149)
[2025-02-10 18:55] LABS: Anion Gap 6 mEq/L (7-15); Blood Urea Nitrogen* 15 mg/dL (5-24); Calcium* 9.3 mg/dL (8.4-10.6); Carbon Dioxide* 28 mmol/L (20-32); Creatinine* 0.8 mg/dL (0.5-1.5); Est. Creatinine Clearance* 90.84; Estimated Glomerular Filt Rate 100 ml/min; Glucose* 89 mg/dL (60-115)
[2025-02-10 19:37] VITALS: BP 118/81; PULSE 74; RESP 18; TEMP 36.4; O2SAT 98
[2025-02-10 21:55] VITALS: BP 116/86; PULSE 78; RESP 19; TEMP 36.6; O2SAT 98
== END 2025-02-10 22:11 | disposition home or self-care (01) ==
PROVIDERS: Emergency Provider Family Medicine; PCP Nurse Practitioner
DX: G89.18 Other acute postprocedural pain (principal); M54.9 Dorsalgia, unspecified; R25.3 Fasciculation; R53.1 Weakness
CPT/HCPCS: 36415; 72193; 80048; 85018; 93005; 96361; 96374; 96376; 99284; 99285; A9270; J1171; J7030; Q9967